=== PATIENT | male | born 1940 | race Caucasian/White ===

== ENCOUNTER 2018-04-25 10:24 | Inpatient (IN) | payer MEDICARE ==
--- NOTE | 2018-04-12 21:02 | HP ---
HISTORY AND PHYSICAL: DATE OF SURGERY: 04/25/18 DATE OF OFFICE VISIT: 04/12/18 SURGEON: Sirena Sinha MD * (DICTATED BY CICI QUIJANO) PROCEDURE: Right total knee arthroplasty. CHIEF COMPLAINT: Right knee pain. HISTORY OF PRESENT ILLNESS: Mr. Duque is a 77-year-old gentleman with complaints of right knee pain. He has failed conservative management and elected to proceed with a right total knee arthroplasty, which is scheduled for 04/25/[address] Sinha. PAST MEDICAL HISTORY: Chronic anemia. PAST SURGICAL HISTORY: Bilateral knee arthroscopies, left carpal tunnel release , and hernia repair. CURRENT MEDICATIONS: 1. Aleve. 2. Tylenol. 3. Iron. 4. Latanoprost eye drops. 5. Vitamin B12. ALLERGIES: None. FAMILY HISTORY: Breast cancer. SOCIAL HISTORY: He is a 77-year-old, lives alone. He does not smoke, use drugs or alcohol. REVIEW OF SYSTEMS: A complete 14-point of review of systems is reviewed with the patient. He has a history of chronic anemia. He denies history of DVT, PE , hepatitis, HIV or anesthesia problems. PHYSICAL EXAMINATION GENERAL: He is a well developed, well nourished in no acute distress. VITAL SIGNS: He stands 69 inches tall, weighs 177 pounds. His blood pressure is 160/84 and his heart rate is 76. HEENT: Normocephalic, atraumatic. NECK: Supple. No palpable lymph nodes. PULMONARY: Lungs are clear to auscultation bilaterally. CARDIO: Regular rate and rhythm. Strong S1, S2. ABDOMEN: Soft, nontender, and nondistended. NEUROLOGIC: He is alert and oriented x3. Cranial nerves II through XII are intact. MUSCULOSKELETAL: Right lower extremity, the skin is intact. There are no open wounds or abrasions. He has some tenderness along the medial and lateral joint line. He has a varus deformity with range of motion 20 to 120 degrees of flexion with severe patellofemoral crepitus. 2+ dorsalis pedis pulses. Intact sensation in his lower extremities. Muscle group strengths are intact at 5/5. ASSESSMENT AND PLAN: Mr. Duque is a 77-year-old gentleman with complaints of right knee pain secondary to end-stage osteoarthritis. He has failed conservative management and elected to proceed with a right total knee arthroplasty. The surgery is scheduled for 04/25/[address] Sinha has discussed the risks and benefits of the surgery at today's visit and all of his questions were answered. He will follow up with Dr. Sinha 2 weeks after the surgery. CICI QUIJANO [id number]/[facility] #: [id number] YASIR
[~2018-04-25 10:24] MED LIST: Acetaminophen IV 1GM/100ML * 1,000 MG/100 ML VIAL IVPB ONE; Buffered Lidocaine 0.9% SYRIN* 5 ML/SYR SYRINGE INTRADERM ONE; Dexamethasone IV* 4 MG/ML 1 ML (4 MG) IV SLOW PU ONE; Famotidine IV* 10 MG/ML 2 ML (20 mg) IV ONE; Gabapentin CAP(*) 300 MG PO ONE; Midazolam* 1 MG/ML 5 ML VIAL (5 MG) ONE; Ondansetron ODT TAB* 4 MG PO ONE; celeCOXIB CAP* 200 MG PO ONE; fentaNYL* 50 MCG/ML 2 ML VIAL (100 MCG VIAL) ONE
[2018-04-25] MEDS ORDERED: Propofol* 10 MG/ML 20 ML BTL IV PUSH ONE (10:25)
[2018-04-25] MEDS ORDERED: Bupivacaine 0.5% PF 10 ML VIAL INJ ONE (10:25)
[2018-04-25] MEDS ORDERED: Dexamethasone IV* 4 MG/ML 1 ML (4 MG) ONE (10:33)
[2018-04-25] MEDS ORDERED: Famotidine IV* 10 MG/ML 2 ML (20 mg) ONE (10:33)
[2018-04-25] MEDS ORDERED: Gabapentin CAP(*) 300 MG ONE (10:34)
[2018-04-25] MEDS ORDERED: celeCOXIB CAP* 100 MG ONE (10:34)
[2018-04-25] MEDS ORDERED: Ondansetron ODT TAB* 4 MG ONE (10:34)
[2018-04-25] MEDS ORDERED: Buffered Lidocaine 0.9% SYRIN* 5 ML/SYR SYRINGE ONE (10:35)
[2018-04-25] MEDS ORDERED: ceFAZolin 2 GM PREMIX (*) 2 GM/50 ML BAG IVPB ONE (10:35)
[2018-04-25] MEDS ORDERED: Acetaminophen IV 1GM/100ML * 100 ML ONE (11:10)
[2018-04-25] MEDS ORDERED: ROPIVACAINE 5 MG/ML 30 ML BTL (0.5%) ONE (11:16)
[2018-04-25] MEDS ORDERED: Bupivacaine 0.5% SDV PF* 30ML VIAL ONE (12:56)
[2018-04-25] MEDS ORDERED: Tranexamic Acid 1,000 MG/10 ML 1,000 MG in NS 0.9% 100 ML* 100 ML IV ONE (13:00)
[2018-04-25] MEDS ORDERED: fentaNYL* 50 MCG/ML 2 ML VIAL (100 MCG VIAL) IV PRN (13:31)
[2018-04-25] MEDS ORDERED: Ondansetron INJ* 2 MG/ML VIAL IV PRN ×2 (13:31→15:52)
[2018-04-25] MEDS ORDERED: Naloxone* 0.4 MG/ML 1 ML VIAL IV PRN (13:31)
[2018-04-25] MEDS ORDERED: HYDROmorphone INJ* 1 MG/ML CARPUJECT SYRINGE IV PRN (13:31)
[2018-04-25] MEDS ORDERED: diPHENhydraMINE IV* 50 MG/ML 1 ml VIAL (BENADRYL) IV PRN (15:52)
[2018-04-25] MEDS ORDERED: Magnesium Hydroxide LIQ* 30 ML UDC PO PRN (15:52)
[2018-04-25] MEDS ORDERED: Morphine VIAL* 4 MG/ML VIAL (1 ml vial) IV PRN (15:52)
[2018-04-25] MEDS ORDERED: Ondansetron TAB* 4 MG PO PRN (15:52)
[2018-04-25] MEDS ORDERED: Cyclobenzaprine TAB* 10 MG PO PRN (15:52)
[2018-04-25] MEDS ORDERED: Bisacodyl SUPP* 10 MG SUPP PR PRN (15:52)
[2018-04-25] MEDS ORDERED: Polyethylene Glycol 3350* 17 GM PACKET PO PRN (15:52)
--- NOTE | 2018-04-25 16:33 | RAD ---
INDICATION: Right knee arthroplasty COMPARISON: March 22, 2018 TECHNIQUE: Portable AP and crosstable lateral views were obtained. FINDINGS: There is right knee arthroplasty. Both femoral and tibial components appear well seated there is no overlying cooling jacket. IMPRESSION: POSTOPERATIVE RIGHT KNEE ARTHROPLASTY.
[2018-04-25] MEDS ORDERED: Warfarin TAB(*) 6 MG PO ONE (20:00)
--- NOTE | 2018-04-25 20:15 | RAD ---
CPT II Codes: G9500 Indication: Right knee replacement. Fluoroscopic services provided for referring physician. Right knee replacement appears in satisfactory position. IMPRESSION: Fluoroscopic services provided for referring physician for bipolar knee arthroplasty.
[2018-04-25] MEDS: Latanoprost 0.005%* 2.5 ml BTL BOTH EYES SCH (20:16)
[2018-04-25] MEDS: ceFAZolin 1 GM in Dextrose (*) 1 GM/50 ML BAG IVPB SCH (20:16)
[2018-04-25] MEDS: Docusate CAP* 100 MG PO SCH (20:16)
[2018-04-25] MEDS: Magnesium Hydroxide LIQ* 30 ML UDC PO SCH (20:17)
[2018-04-25] MEDS: PTO:Brinzolamid/Brimonidin OPH(NF) 1 DROP BTL BOTH EYES SCH (20:19)
[2018-04-25] MEDS: oxyCODONE/Acetamin 5/325 MG* TAB PO PRN (20:59)
[2018-04-26] MEDS: ceFAZolin 1 GM in Dextrose (*) 1 GM/50 ML BAG IVPB SCH ×2 (05:14→12:53)
[2018-04-26] MEDS: oxyCODONE/Acetamin 5/325 MG* TAB PO PRN ×3 (05:17→20:21)
[2018-04-26 06:00] LABS: Hematocrit 28 % (42-52); Hemoglobin 9.6 g/dl (14.0-18.0); Mean Platelet Volume 6.9 um3 (7.4-10.4); Platelet Count 202 10^3/ul (150-450)
[2018-04-26 06:08] LABS: INR 1.09 (0.77-1.02)
[2018-04-26 06:24] LABS: EGFR Non-African American 89.4 (>60)
[2018-04-26] MEDS: Magnesium Hydroxide LIQ* 30 ML UDC PO SCH ×2 (08:45→20:19)
[2018-04-26] MEDS: Docusate CAP* 100 MG PO SCH ×2 (08:45→20:20)
[2018-04-26] MEDS: oxyCODONE TAB* 5 MG TAB PO PRN ×2 (08:46→12:54)
[2018-04-26] MEDS: PTO:Brinzolamid/Brimonidin OPH(NF) 1 DROP BTL BOTH EYES SCH ×2 (08:50→20:23)
--- NOTE | 2018-04-26 10:24 | PN ---
Progress Note - Progress Note Date of Service: 04/26/18 SOAP: Subjective: POD #1 Right TKA, doing well. Pain well controlled. Denies CP/SOB, calf pain, f/ c, n/v. Objective: Vitals: Temp Pulse Resp BP Pulse Ox 97.8 F 74 16 131/64 100 04/26/18 07:14 04/26/18 07:14 04/26/18 08:46 04/26/18 07:14 04/26/18 07:14 Gen: A&Ox3, NAD at rest sitting in bed RLE: Dressing C/D/I, mild edema to lower leg, calf soft, NT. +f/e at ankle and MTPs, N/V intact Labs: Laboratory Results - last 24 hr 04/26/04/26/04/26/18 05:39 05:39 05:39 Hgb 9.6 L Hct 28 L Plt Count 202 MPV 6.9 L INR (Anticoag Therapy) 1.09 H Sodium 139 Potassium 3.8 Chloride 106 Carbon Dioxide 27 Anion Gap 6 BUN 22 Creatinine 0.83 Est GFR ( Amer) 108.1 Est GFR (Non-Af Amer) 89.4 BUN/Creatinine Ratio 26.5 H Glucose 143 H Calcium 8.4 L Assessment: POD #1 Right TKA, doing well Plan: Cont PT/OT INR 1.09, Coumadin 6mg tonight, continue Lovenox bridge Cont current pain medication
[2018-04-26] MEDS: Enoxaparin(*) 30 MG/0.3 ML SYR SUBCUT SCH (11:25)
[2018-04-26] MEDS ORDERED: Warfarin TAB(*) 6 MG PO ONE (17:00)
[2018-04-26] MEDS: Latanoprost 0.005%* 2.5 ml BTL BOTH EYES SCH (20:22)
[2018-04-27] MEDS: oxyCODONE/Acetamin 5/325 MG* TAB PO PRN (05:44)
[2018-04-27 05:54] LABS: Hematocrit 28 % (42-52); Hemoglobin 9.6 g/dl (14.0-18.0); Mean Platelet Volume 7.1 um3 (7.4-10.4); Platelet Count 200 10^3/ul (150-450)
[2018-04-27 06:00] LABS: INR 1.45 (0.77-1.02)
--- NOTE | 2018-04-27 06:04 | OP ---
OPERATIVE REPORT: DATE OF OPERATION: 04/25/18 DATE OF : 36 SURGEON: Sirena Sinha MD DOCTOR OF AUDIOLOGY: CICI Choi Ms. did help throughout the procedure with preparation of the leg, wound retraction, manipulation of the knee and wound closure. ANESTHESIOLOGIST: Dr. Kuhn. ANESTHESIA: Spinal. PRE-OP DIAGNOSIS: Severe end-stage degenerative osteoarthritis of the right knee joint with extensive soft tissue contracture and bone deformity. POST-OP DIAGNOSIS: Severe end-stage degenerative osteoarthritis of the right knee joint with extensive soft tissue contracture and bone deformity. OPERATIVE PROCEDURE: Right total knee arthroplasty with modifier for highly complex case adding operative time. TOURNIQUET TIME: 90 minutes. COMPLICATIONS: None. ESTIMATED BLOOD LOSS: 300 cc. SPECIMENS: Bone and cartilage from the right knee joint sent to pathology. HARDWARE USED: This is [employer] cemented total knee arthroplasty hardware. Two packages of Simplex bone cement. For the femur, a right size 7 posterior stabilized Legion femoral component. For the tibia, a size 7 Yanet II right tibial baseplate with a 16/100 Yanet II long non-slotted stem. For the insert, a 9-mm constrained articular insert size 7/8 and for the patella, a 35-mm 3-peg all poly patella. BRIEF HISTORY/INDICATION: Mr. Duque is a 77-year-old gentleman with years of increasingly severe right knee pain and contracture. His radiographs showed extensive arthritis with [id number] contact and deformity of the medial tibial plateau bone. He had essentially multiple microfractures from subchondral cysts and deformity over the years. He had widened the medial tibial plateau through this process and had extensive bone loss here. The patient and I discussed different surgical options. He understood that he could require more than the primary total knee implant. Informed consent was obtained from the patient. He understood the risks of surgery included, but were not limited to bleeding, infection, damage to nearby structures, continued pain, need for further surgery, intraoperative fracture, nerve palsy, hardware failure or loosening, knee stiffness, loss of motion, stroke, heart attack, blood clot and . He wished to proceed. INTRAOPERATIVE FINDINGS: Intraoperatively, the patient was noted to have flexion contracture of 25 degrees and severe varus deformity of 50 degrees. He had flexion to only 100 degrees at the start of the the case. Intraoperatively , we did get him to full extension and 125 degrees of flexion. He had severe deformity of the medial tibial plateau with evidence of fracture over the years along the posteromedial and medial edge of the tibial plateau. He had extensive subchondral cyst formation. His soft tissue contractures were extensive and worse medially. The case was significantly more complex than a normal primary total knee arthroplasty. Soft tissue balancing and additional work with the tibia did add at least 1 hour to this operative time. DESCRIPTION OF PROCEDURE: Mr. Duque was identified in the preanesthesia unit. His right lower extremity was marked as the correct operative side. Informed consent was signed and placed in the chart. The patient was taken to the operating room and placed under spinal anesthesia. A Macias catheter was placed. Tourniquet was placed on the right thigh. Right lower extremity was prepped and draped in the usual sterile fashion. Preop time-out was made to correctly identify the patient's side and site. Appropriate perioperative antibiotics were given within 1 hour of incision. A midline incision was made with a 10 blade and carried down to the extensor mechanism. A new 10 blade was used to make a standard medial parapatellar arthrotomy. The patella was subluxed laterally. Electrocautery was used to subperiosteally elevate soft tissue off the superomedial tibia. There was extensive osteophyte formation and deformity here. Rongeur was used to remove some osteophytes medially. A significant amount of soft tissue elevation was performed along the medial tibial plateau. The knee was flexed up. There was no anterior horn of the lateral meniscus or ACL. A drill was used to enter the distal femur. Intramedullary distal femoral cutting guide was pinned on the distal femur. An additional 2 mm of distal bone was resected due to the patient 's severe flexion contracture. External rotation guide was pinned on the distal femur and the distal femur was sized to a size 7. Size 7 multi-cutting jig was pinned on the distal femur. Oscillating saw was used to make the appropriate 4 chamfer cuts. Next, the PCL was completely released. Tibia was subluxed anteriorly. There were multiple pieces of bone whether these were osteophytes or prior fracture fragments. These were removed from the posteromedial joint line. Soft tissue medially was extremely tight and contracted. This was carefully elevated off the medial tibial plateau with electrocautery and any osteophytes were carefully removed. Intramedullary tibial cutting guide was placed after drilling proximally in the tibia. Proximal tibial cut was made perpendicular to the mechanical axis of the tibia. The bone was carefully removed. Proximal tibial bone was deformed medially. There was a stable baseplate of subchondral bone. Probing through the posteromedial tibial plateau, there was some subchondral cyst encountered. This material was cleared. A significant amount of medial deformed bone was removed. Using reamers, the canal was reamed up to a size 16. A size 7 tibial baseplate with a 16/100 trial stem was chosen and the proximal tibia was prepared using a keel punch. The stem and plate did fit with satisfactory stability although this was intensive only lateral costa to obtain a stable base for the plate and stem. There was some deformed bone medially, which was left in place purposefully in order to avoid any intraoperative fractures of the medial tibial plateau bone. A size 7 right femoral trial was impacted on to the distal femur and had good stability. The box for the posterior stabilized implant was prepared using a reamer and box cut osteotome. 9-mm insert trial was placed and the knee was taken through range of motion. There was significant tightness medially. Extensive soft tissue release was performed around the medial tibial plateau with removal of any additional osteophytes. A conservative pie-crusting technique was performed on the medial soft tissue using a 15 blade. This did improve the medial and lateral ligamentous balancing and on top of that the knee was brought out into full extension. There was flexion to 125 degrees with satisfactory patellofemoral tracking. The patella was everted. 9 mm of patellar bone and cartilage were carefully removed using an oscillating saw. Patella was sized to a size 35. 3-peg holes were drilled through the size 35 guide. The 35 trial patella was placed and the knee was taken through a range of motion. The knee had satisfactory patellofemoral tracking. There was good flexion and extension gap balancing. All trials were removed. The bone was copiously irrigated with sterile saline and dried. Final implants were cemented into place starting with the tibia, followed by the femur, and lastly the patella. The 9-mm insert trial was placed and the knee was brought out into full extension. Tourniquet was turned down at 90 minutes. The soft tissue contracture and bony deformity did add at least 1 hour to this operative case. Once the cement had fully cured, the insert trial was removed. Any excess cement was removed from around the capsule and hardware. Final insert chosen was a 9-mm constrained articular insert Yanet II. This was locked into position on the tibial tray. Stability of the insert was checked and rechecked and noted to be stable. The knee had full extension to 125 degrees of flexion. There was satisfactory patellofemoral tracking. The knee was copiously irrigated with sterile saline. Electrocautery obtained meticulous hemostasis. The extensor mechanism was closed using interrupted #1 Vicryls. The rest of the incision was closed in a layered fashion using 0 and 2-0 Vicryls. Skin was closed using running 3-0 nylon suture. Sterile Xeroform, 4x4s and Webril were used to cover the incision. Krishan wrap and cold pack were placed over this. The patient's anesthesia was reversed without difficulty. He was taken to the PACU in stable condition. Intended weightbearing will be weightbearing as tolerated. Intended DVT prophylaxis will be Coumadin with a Lovenox bridge. [id number]/[facility] #: [id number] YASIR
[2018-04-27] MEDS: Ferrous Sulfate TAB* 325 MG PO SCH (09:32)
[2018-04-27] MEDS: Magnesium Hydroxide LIQ* 30 ML UDC PO SCH ×2 (09:32→20:17)
[2018-04-27] MEDS: Docusate CAP* 100 MG PO SCH ×2 (09:32→20:39)
[2018-04-27] MEDS: PTO:Brinzolamid/Brimonidin OPH(NF) 1 DROP BTL BOTH EYES SCH ×2 (09:42→20:36)
[2018-04-27] MEDS: Acetaminophen TAB* 325 MG PO PRN ×2 (11:02→20:39)
--- NOTE | 2018-04-27 11:16 | PN ---
Progress Note - Progress Note Date of Service: 04/27/18 SOAP: Subjective: Pt lying comfortably in bed. No complaint of pain unless he moves his knee. Reports some urinary retention overnight. Denies F/C/N/T Vital Signs: Temp Pulse Resp BP Pulse Ox 97.8 F 88 17 155/77 96 04/27/18 07:52 04/27/18 07:52 04/27/18 07:52 04/27/18 07:52 04/27/18 07:52 Objective: Dressing C/D/I. Calves soft, nontender. Sensation intact to light touch distally. 2+ DP pulses Laboratory Last Values Hgb 9.6 g/dl (14.0-18.0) L 04/27/18 05:41 Hct 28 % (42-52) L 04/27/18 05:41 Plt Count 200 10^3/ul (150-450) 04/27/18 05:41 MPV 7.1 um3 (7.4-10.4) L 04/27/18 05:41 INR (Anticoag Therapy) 1.45 (0.77-1.02) H 04/27/18 05:41 Sodium 139 mmol/L (135-145) 04/26/18 05:39 Potassium 3.8 mmol/L (3.5-5.0) 04/26/18 05:39 Chloride 106 mmol/L (101-111) 04/26/18 05:39 Carbon Dioxide 27 mmol/L (22-32) 04/26/18 05:39 Anion Gap 6 mmol/L (2-11) 04/26/18 05:39 BUN 22 mg/dL (6-24) 04/26/18 05:39 Creatinine 0.83 mg/dL (0.67-1.17) 04/26/18 05:39 Est GFR ( Amer) 108.1 (>60) 04/26/18 05:39 Est GFR (Non-Af Amer) 89.4 (>60) 04/26/18 05:39 BUN/Creatinine Ratio 26.5 (8-20) H 04/26/18 05:39 Glucose 143 mg/dL (70-100) H 04/26/18 05:39 Calcium 8.4 mg/dL (8.6-10.3) L 04/26/18 05:39 Assessment: 77 yo Male s/p right TKA 04/25/[address] Sinha Plan: OOB, PT/OT, WBAT Pain control DVT prophylaxis - Coumadin 6 mg tonight. Continue lovenox bridge. D/C plan - Per nursing, still unstable at PT. Possible D/C to home tomorrow.
[2018-04-27] MEDS: Enoxaparin(*) 30 MG/0.3 ML SYR SUBCUT SCH (12:15)
[2018-04-27] MEDS ORDERED: Warfarin TAB(*) 6 MG PO ONE (17:00)
[2018-04-27] MEDS: Latanoprost 0.005%* 2.5 ml BTL BOTH EYES SCH (20:43)
[2018-04-28] MEDS: Acetaminophen TAB* 325 MG PO PRN ×3 (04:04→20:58)
[2018-04-28 05:47] LABS: INR 1.91 (0.77-1.02)
[2018-04-28] MEDS: Magnesium Hydroxide LIQ* 30 ML UDC PO SCH ×2 (09:09→20:58)
[2018-04-28] MEDS: Docusate CAP* 100 MG PO SCH ×2 (09:09→20:58)
[2018-04-28] MEDS: Ferrous Sulfate TAB* 325 MG PO SCH (09:09)
[2018-04-28] MEDS: PTO:Brinzolamid/Brimonidin OPH(NF) 1 DROP BTL BOTH EYES SCH ×2 (09:09→20:59)
[2018-04-28 10:31] LABS: Hematocrit 29 % (42-52); Hemoglobin 9.8 g/dl (14.0-18.0); Mean Platelet Volume 7.2 um3 (7.4-10.4); Platelet Count 220 10^3/ul (150-450)
[2018-04-28] MEDS: Enoxaparin(*) 30 MG/0.3 ML SYR SUBCUT SCH (12:29)
[2018-04-28] MEDS: oxyCODONE/Acetamin 5/325 MG* TAB PO PRN (13:59)
--- NOTE | 2018-04-28 14:21 | PN ---
Progress Note - Progress Note Date of Service: 04/28/18 SOAP: Subjective: Pt lying comfortably in bed. No complaint of pain. Still unable to urinate on his own. Denies F/C/N/T Vital Signs: Temp Pulse Resp BP Pulse Ox 98.1 F 76 18 154/67 100 04/28/18 11:35 04/28/18 11:35 04/28/18 13:59 04/28/18 11:35 04/28/18 11:35 Objective: Dressing C/D/I. Calves soft, nontender. N/V intact distally. Laboratory Last Values Hgb 9.8 g/dl (14.0-18.0) L 04/28/18 10:27 Hct 29 % (42-52) L 04/28/18 10:27 Plt Count 220 10^3/ul (150-450) 04/28/18 10:27 MPV 7.2 um3 (7.4-10.4) L 04/28/18 10:27 INR (Anticoag Therapy) 1.91 (0.77-1.02) H 04/28/18 05:06 Sodium 139 mmol/L (135-145) 04/26/18 05:39 Potassium 3.8 mmol/L (3.5-5.0) 04/26/18 05:39 Chloride 106 mmol/L (101-111) 04/26/18 05:39 Carbon Dioxide 27 mmol/L (22-32) 04/26/18 05:39 Anion Gap 6 mmol/L (2-11) 04/26/18 05:39 BUN 22 mg/dL (6-24) 04/26/18 05:39 Creatinine 0.83 mg/dL (0.67-1.17) 04/26/18 05:39 Est GFR ( Amer) 108.1 (>60) 04/26/18 05:39 Est GFR (Non-Af Amer) 89.4 (>60) 04/26/18 05:39 BUN/Creatinine Ratio 26.5 (8-20) H 04/26/18 05:39 Glucose 143 mg/dL (70-100) H 04/26/18 05:39 Calcium 8.4 mg/dL (8.6-10.3) L 04/26/18 05:39 Assessment: 77 yo male s/p right TKA POD #3 Plan: OOB, PT/OT, WBAT Pain control DVT prophylaxis - Coumadin 2 mg today. Will D/C lovenox Urinary retention - Urology consult. Per urology recommendation: insert chen catheter, start flomax 0.4mg daily, Gentamycin 160mg IV X1 now, repeat dose in 12hrs. D/C plan - Will likely need STR
[2018-04-28] MEDS ORDERED: Gentamicin ADULT (*) 40 MG/ML VIAL IVPB ONE (14:47)
[2018-04-28] MEDS: Tamsulosin CAP* 0.4 MG PO SCH (16:34)
[2018-04-28] MEDS: Gentamicin ADULT (*) 160 MG in NS 0.9% 100 ML* 100 ML IVPB SCH (16:35)
[2018-04-28] MEDS ORDERED: Warfarin TAB(*) 2 MG PO ONE (17:00)
[2018-04-28] MEDS ORDERED: Warfarin TAB(*) 2 MG PO NR (17:00)
[2018-04-28] MEDS: Latanoprost 0.005%* 2.5 ml BTL BOTH EYES SCH (21:00)
[2018-04-29] MEDS: Gentamicin ADULT (*) 160 MG in NS 0.9% 100 ML* 100 ML IVPB SCH (04:08)
[2018-04-29] MEDS: Acetaminophen TAB* 325 MG PO PRN (05:30)
[2018-04-29 05:41] LABS: Hematocrit 26 % (42-52); Hemoglobin 9.1 g/dl (14.0-18.0); Mean Platelet Volume 7.1 um3 (7.4-10.4); Platelet Count 231 10^3/ul (150-450)
[2018-04-29 06:23] LABS: INR 1.98 (0.77-1.02)
[2018-04-29] MEDS: PTO:Brinzolamid/Brimonidin OPH(NF) 1 DROP BTL BOTH EYES SCH ×3 (08:35→20:46)
[2018-04-29] MEDS: Tamsulosin CAP* 0.4 MG PO SCH (08:40)
[2018-04-29] MEDS: Ferrous Sulfate TAB* 325 MG PO SCH (08:40)
[2018-04-29] MEDS: Docusate CAP* 100 MG PO SCH ×2 (08:40→20:47)
[2018-04-29] MEDS: Magnesium Hydroxide LIQ* 30 ML UDC PO SCH ×2 (08:43→20:41)
[2018-04-29] MEDS: oxyCODONE/Acetamin 5/325 MG* TAB PO PRN ×2 (08:56→13:37)
--- NOTE | 2018-04-29 10:36 | PN ---
Progress Note - Progress Note Date of Service: 04/29/18 SOAP: Subjective: []Patient seen OOB in chair. He is feeling very well with no complaints. Denies any chest pain, irregular heart beats, shortness of breath, dizziness, right knee pain. Objective: [] Vital Signs Temp 98.1 F 04/29/18 07:19 Pulse 83 04/29/18 07:19 Resp 18 04/29/18 08:56 BP 153/77 04/29/18 07:19 Pulse Ox 97 04/29/18 07:19 Intake & Output 04/28/18 04/29/18 04/29/18 18:59 06:59 18:59 Intake Total 580 734 Output Total 400 1750 Balance 180 -1016 Intake: IV Fluids 130 ABX - GENTAMYCIN 110 ns 20 IVPB 104 ABX - GENTAMYCIN 104 Oral 450 630 Output: Urine 0 0 Chen 400 1750 Other: Estimated Stool Amount Large Laboratory Last Values Hgb 9.1 g/dl (14.0-18.0) L 04/29/18 05:27 Hct 26 % (42-52) L 04/29/18 05:27 Plt Count 231 10^3/ul (150-450) 04/29/18 05:27 MPV 7.1 um3 (7.4-10.4) L 04/29/18 05:27 INR (Anticoag Therapy) 1.98 (0.77-1.02) H 04/29/18 05:27 Sodium 139 mmol/L (135-145) 04/26/18 05:39 Potassium 3.8 mmol/L (3.5-5.0) 04/26/18 05:39 Chloride 106 mmol/L (101-111) 04/26/18 05:39 Carbon Dioxide 27 mmol/L (22-32) 04/26/18 05:39 Anion Gap 6 mmol/L (2-11) 04/26/18 05:39 BUN 22 mg/dL (6-24) 04/26/18 05:39 Creatinine 0.83 mg/dL (0.67-1.17) 04/26/18 05:39 Est GFR ( Amer) 108.1 (>60) 04/26/18 05:39 Est GFR (Non-Af Amer) 89.4 (>60) 04/26/18 05:39 BUN/Creatinine Ratio 26.5 (8-20) H 04/26/18 05:39 Glucose 143 mg/dL (70-100) H 04/26/18 05:39 Calcium 8.4 mg/dL (8.6-10.3) L 04/26/18 05:39 General: Well appearing, NAD Radial pulse regular Cardiac: S1S2 RR RLE: Dressing changed. Incision CDI without erythema or, 1+ edema from knee distal. No palpable cords and negative homans sign. DF/PF intact. DP2+ capillary refill less than two seconds distally. LLE without erythema, edema or palpable cords. Assessment: [] 77 yo male s/p right TKA POD #4 Plan: []OOB, PT/OT, WBAT Pain control DVT prophylaxis - 2 mg coumadin today Urinary retention - chen catheter remains in place. D/C plan - discussed with CM, still working to find placement Audible irregular heart rhythm detected on nursing assessment- appreciate medicine consult. Will get BMP at next lab draw to eval potassium and magnesium , otherwise no further tx/ workup at this time. Goal to maintain potassium greater than 4, magnesium greater than 2. 2 of 2
--- NOTE | 2018-04-29 12:54 | CONS ---
CONSULTATION REPORT: DATE OF CONSULT: 04/29/18 SERVICE REQUESTING CONSULTATION: Orthopedic Surgery. REASON FOR CONSULTATION: Irregular heart rhythm. HISTORY OF PRESENT ILLNESS AND HOSPITAL COURSE: This is a 77-year-old man with past medical history including chronic anemia, now postop day 4, status post total right knee arthroplasty with Dr. Sinha, difficult procedure without complications, in the hospital pending placement, was heard today by nurses of an irregular heart rhythm on auscultation. The hospitalist services were consulted to investigate. EKG performed today after bedside auscultation revealed normal sinus rhythm with 1 premature atrial complex but no other rhythm abnormalities. No ischemic changes. The patient denies any palpitations , chest pain or chest discomfort, shortness of breath, nausea, vomiting, lightheadedness. His pain is well controlled status post this procedure. He is an active gentleman, most limited by his previous pain. 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 PAST MEDICAL HISTORY: Includes chronic anemia. HOME MEDICATIONS: Include: 1. Aleve. 2. Tylenol. 3. Iron. 4. Latanoprost eye drops. 5. Vitamin B12. Additional medications in the hospital include: 1. Dulcolax suppository. 2. Flexeril 3 times a day as needed. 3. Benadryl IV every 6 hours as needed. 4. Docusate/lactulose as needed. 5. Lactated Ringer's 100 cc/hour. 6. Milk of magnesia as needed. 7. Morphine IV. 8. Zofran as needed. 9. Oxycodone and Percocet as needed. 10. Tamsulosin 0.4 mg. 11. Coumadin 2 mg. FAMILY HISTORY: Breast cancer. SOCIAL HISTORY: No tobacco, drugs, or alcohol. REVIEW OF SYSTEMS: As per HPI. PHYSICAL EXAM: Vitals: Blood pressure 153/77, heart rate is 83, respiratory rate is 16, 97% on room air, T-max 98.1. Sitting up in bed, interactive, pleasant, no apparent distress, younger than stated age. His oropharynx is clear. He has no moist mucous membranes. He has regular rate and rhythm without murmurs, rubs, or gallops. He has non- elevated JVD. His lungs are clear to auscultation. His abdomen is soft, nontender, nondistended. Extremities are warm. He has 1 to 2+ in the right lower extremity, 2+ peripheral pulses. He is alert and oriented x3. ASSESSMENT AND PLAN: This is a 77-year-old man with past medical history of chronic anemia, who presented to the hospital on postop day 4 of right total knee arthroplasty, found to have irregular heart rate on auscultation, identified as paroxysmal atrial complexes on EKG. 1. Irregular heart rate. Paroxysmal atrial complex is asymptomatic. No indication for additional therapy. If patient is symptomatic, shortness of breath, chest pain, experiences or senses palpitation, can proceed to therapy with a beta- hector, however, no indication at this time. BMP with next blood check. Evaluate for potassium and magnesium, maintain potassium greater than 4 , magnesium greater than 2. 2. Chronic anemia. Continue to trend as you will. 3. Right total knee arthroplasty. Care per Orthopedics. 4. DVT prophylaxis: Coumadin as you are doing. Thank you for this consultation. Please call with additional questions or concerns. Page [phone]. [id number]/[facility] #: [id number] YASIR
[2018-04-29] MEDS ORDERED: Warfarin TAB(*) 2 MG PO NR (17:00)
[2018-04-29] MEDS: Latanoprost 0.005%* 2.5 ml BTL BOTH EYES SCH (20:47)
[2018-04-30 07:20] LABS: Hematocrit 26 % (42-52); Platelet Count 278 10^3/ul (150-450)
[2018-04-30 07:25] LABS: INR 1.84 (0.77-1.02)
[2018-04-30 07:30] LABS: EGFR Non-African American 100.5 (>60)
--- NOTE | 2018-04-30 08:50 | PN ---
Progress Note - Progress Note Date of Service: 04/30/18 SOAP: Subjective: OOB to chair resting comfortably Objective: Vital Signs Temp Pulse Resp BP Pulse Ox 99.8 F 94 16 165/70 99 04/30/18 03:51 04/30/18 03:51 04/30/18 03:51 04/30/18 03:51 04/30/18 03:51 Laboratory Last Values Hgb 9.0 g/dl (14.0-18.0) L 04/30/18 07:07 Hct 26 % (42-52) L 04/30/18 07:07 Plt Count 278 10^3/ul (150-450) 04/30/18 07:07 MPV 7.0 um3 (7.4-10.4) L 04/30/18 07:07 INR (Anticoag Therapy) 1.84 (0.77-1.02) H 04/30/18 07:07 Sodium 137 mmol/L (135-145) 04/30/18 07:07 Potassium 3.9 mmol/L (3.5-5.0) 04/30/18 07:07 Chloride 101 mmol/L (101-111) 04/30/18 07:07 Carbon Dioxide 28 mmol/L (22-32) 04/30/18 07:07 Anion Gap 8 mmol/L (2-11) 04/30/18 07:07 BUN 16 mg/dL (6-24) 04/30/18 07:07 Creatinine 0.75 mg/dL (0.67-1.17) 04/30/18 07:07 Est GFR ( Amer) 121.6 (>60) 04/30/18 07:07 Est GFR (Non-Af Amer) 100.5 (>60) 04/30/18 07:07 BUN/Creatinine Ratio 21.3 (8-20) H 04/30/18 07:07 Glucose 103 mg/dL (70-100) H 04/30/18 07:07 Calcium 8.4 mg/dL (8.6-10.3) L 04/30/18 07:07 incision: c/d/i PE:NVI Assessment: s/p right TKA Plan: 1) PT/OT-WBAT 2) continue current pain regimen 3) hospitalist co-managing 4) awaiting rehab placement 5) per Tina, continue Flomax, keep chen in place and F/U with him in 1 week
[2018-04-30] MEDS: Ferrous Sulfate TAB* 325 MG PO SCH (09:31)
[2018-04-30] MEDS: Tamsulosin CAP* 0.4 MG PO SCH (09:31)
[2018-04-30] MEDS: Docusate CAP* 100 MG PO SCH (09:31)
[2018-04-30] MEDS: PTO:Brinzolamid/Brimonidin OPH(NF) 1 DROP BTL BOTH EYES SCH (09:32)
[2018-04-30] MEDS: Magnesium Hydroxide LIQ* 30 ML UDC PO SCH (09:35)
[2018-04-30 11:36] VITALS: BP 142/58
[2018-04-30] MEDS: oxyCODONE/Acetamin 5/325 MG* TAB PO PRN (12:42)
[2018-04-30] MEDS ORDERED: Warfarin TAB(*) 2 MG PO NR (17:00)
--- NOTE | 2018-05-01 06:52 | DS ---
ADDENDUM NOW INCLUDED ON THIS REPORT DISCHARGE SUMMARY: DATE OF ADMISSION: 04/25/18 DATE OF DISCHARGE: 04/30/18 SURGEON: Sirena Sinha MD * (DICTATED BY CICI QUIJANO) PRINCIPAL DIAGNOSIS: End-stage osteoarthritis of the right knee. DISCHARGE DIAGNOSIS: End-stage osteoarthritis of the right knee. HISTORY OF PRESENT ILLNESS: Mr. Duque is a 77-year-old gentleman with continued complaints of right knee pain. He has failed conservative treatment and elected to proceed with a right total knee arthroplasty which was scheduled for 04/25/18. HOSPITAL COURSE: Mr. Duque was admitted electively to the hospital on and underwent a right total knee arthroplasty. Postoperatively, he was placed on Lovenox and Coumadin for DVT prophylaxis. His INR went from 1.09 on postoperative day 1 to 1.84 on the date of discharge on 04/30/18. His H and H remained stable throughout his hospital course and at the time of discharge, his H and H was 9 and 26. He remained afebrile. On 04/29/18, it was noted that he had an irregular heart rhythm that was detected. Hospitalist was consulted and they did evaluate him. Dr. Chu saw him and diagnosed him with paroxysmal atrial complex and was asymptomatic. He did not require any additional therapy. At the time of discharge on 04/30/18, he was afebrile, his incision was clean and dry, and he was ambulating with the aid of a walker. DISCHARGE MEDICATIONS: 1. Simbrinza eye drops. 2. Ferrous sulfate 325 daily. 3. Latanoprost eye drops to both eyes. 4. Percocet 5/325 one to two tabs every 4 to 6 hours as needed for pain. 5. Coumadin 2 mg tabs. 6. Flexeril 10 mg 2 to 3 times daily for muscle spasms. PHYSICAL EXAM UPON DISCHARGE: He was afebrile. His vital signs were stable. His wound was clean and dry. He had 2+ dorsalis pedis pulse. His lower extremity muscle group strengths were intact at 5/5 and he was ambulating with the aid of a walker. DISCHARGE INSTRUCTIONS: He was discharged to a subacute rehab at the [facility]. He will continue Coumadin for DVT prophylaxis for a total of 4 weeks. His INR at the time of discharge was 1.84. We recommended 2 mg tonight followed by 2 mg Sunday night. His INR should be rechecked on and our office should be contacted for further dosing instructions. He will continue Percocet as needed for pain. He will follow up with Dr. Sinha in 2 weeks. Please call our office with any questions or concerns. ADDENDUM: DISCHARGE INSTRUCTIONS: He will continue the use of Flomax. Dr. Rahman has recommended he leave his Macias catheter in and he will follow up with Dr. Rahman in 1 week. CICI QUIJANO [id number]/[facility] #: [id number]/[facility] #: [id number] YASIR
--- NOTE | 2018-05-01 07:09 | DS ---
DISCHARGE SUMMARY: ADDENDUM: DISCHARGE INSTRUCTIONS: He will continue the use of Flomax. Dr. Rahman has recommended he leave his Macias catheter in and he will follow up with Dr. Rahman in 1 week. CICI QUIJANO [id number]/[facility] #: [id number] [facility] HOSPITALFidel
== END 2018-04-30 14:00 | DRG 470 ==
LOC: AA 10:24 → SSU 15:52
PROVIDERS: ADMIT Orthopaedic Surgery Adult Reconstructive Orthopaedic Surgery; ATTEND Orthopaedic Surgery Adult Reconstructive Orthopaedic Surgery
PROC: 0SRC0J9 Replacement of Right Knee Joint with Synthetic Substitute, Cemented, Open Approach (ICD-10-PCS; principal; 2018-04-25 13:00)
PROC: 0T9B70Z Drainage of Bladder with Drainage Device, Via Natural or Artificial Opening (ICD-10-PCS; 2018-04-28)
DX: M17.11 Unilateral primary osteoarthritis, right knee (principal); M84.461A Pathological fracture, right tibia, initial encounter for fracture; D64.9 Anemia, unspecified; F17.200 Nicotine dependence, unspecified, uncomplicated; M24.561 Contracture, right knee; M85.661 Other cyst of bone, right lower leg; M21.161 Varus deformity, not elsewhere classified, right knee; M25.761 Osteophyte, right knee; R33.9 Retention of urine, unspecified; I49.1 Atrial premature depolarization; I49.9 Cardiac arrhythmia, unspecified; Z80.3 Family history of malignant neoplasm of breast
CPT/HCPCS: 36415; 76000; 80048; 83735; 85014; 85018; 85049; 85610; 88305; 88311; 93005; A9270-GY; C1776; G8978-GP-CL; G8978-GP-CM; G8979-GP-CI; G8979-GP-CK; G8981-GP-CL; G8982-GP-CI; G8987-GO-CK; G8988-GO-CI; G8989-GO-CI; J0690; J1100; J1580; J1650; J2250; J2704; J2795; J3010

== ENCOUNTER 2018-05-17 15:41 | Emergency (ER) | payer MEDICARE ==
--- NOTE | 2018-05-17 17:10 | ED ---
Laceration/Wound HPI - HPI Summary HPI Summary: Patient is a 77-year-old male who presents emergency department for a laceration to his right lower leg that he sustained just prior to arrival. Patient is status post right total knee replacement [address] Sinha. Patient states he was walking up steps to his house using walker when he lost his balance and fell backwards. Patient denies striking his head or loss of consciousness. He states there was a short pipe sticking out of the ground and caught his right leg on it and sustained deep laceration to the back of his right mid leg. Pt. denies numbness or tingling. He is anticoagulated. Symptoms are moderate in severity. Touching affected area makes symptoms worse. Rest makes symptoms better. No other injuries were sustained. - History of Current Complaint Stated Complaint: FALL Time Seen by Provider: 05/17/18 16:16 Hx Obtained From: Patient, Family/Emergency Medicine Specialist Pain Intensity: 5 - Additional Pertinent History Primary Care Physician: JED - Allergy/Home Medications Allergies/Adverse Reactions: Allergies Allergy/AdvReac Type Severity Reaction Status Date / Time No Known Allergies Allergy Verified 04/25/18 10:42 Home Medications: Home Medications Acetaminophen TAB* [Tylenol TAB*] 325 mg PO BID PRN 05/17/18 [History Confirmed 05/17/18] Cyanocobalamin TAB* [Vitamin B12 TAB*] 1,000 mcg PO MOWEFRSA 05/17/18 [History Confirmed 05/17/18] Ferrous Gluconate [Iron] 150 mg PO DAILY 05/17/18 [History Confirmed 05/17/18] Naproxen Sodium [Naproxen 220 mg] 220 mg PO BID 05/17/18 [History Confirmed ] PMH/Surg Hx/FS Hx/Imm Hx Previously Healthy: Yes Endocrine/Hematology History: Reports: Hx Anemia - ON IRON Musculoskeletal History: Reports: Hx Arthritis - OSTEO, Hx Back Problems, Other Musculoskeletal History - TORN LIGAMENTS IN BOTH KNEES HAD SURGERY Sensory History: Reports: Hx Cataracts - HAD SURGERY, Hx Contacts or Glasses - GLASSES, Hx Glaucoma - ON EYE GTTS Denies: Hx Hearing Aid Opthamlomology History: Reports: Hx Cataracts - HAD SURGERY, Hx Contacts or Glasses - GLASSES, Hx Glaucoma - ON EYE GTTS - Surgical History Surgery Procedure, Year, and Place: LEFT KNEE SURGERY 1958 [place]. RIGHT KNEE 1968 [place]. LEFT CARPAL TUNNEL [place]. TENDON RIGHT ARM [place]. CATARACT [place]. LEFT HERNIA [place] Hx Anesthesia Reactions: No Infectious Disease History: Yes Infectious Disease History: Denies: Traveled Outside the [place] in Last 30 Days - Social History Alcohol Use: None Substance Use Type: Reports: None Smoking Status (MU): Light Every Day Tobacco Smoker Have You Smoked in the Last Year: No Review of Systems Constitutional: Negative Cardiovascular: Negative Respiratory: Negative Positive: Other - Right leg laceration Negative: Weakness, Paresthesia, Numbness All Other Systems Reviewed And Are Negative: Yes Physical Exam Triage Information Reviewed: Yes Vital Signs On Initial Exam: Initial Vitals Temp Pulse Resp BP Pulse Ox 98.2 F 82 18 141/65 98 05/17/18 16:30 05/17/18 16:30 05/17/18 16:30 05/17/18 16:30 05/17/18 16:30 Vital Signs Reviewed: Yes Appearance: Positive: Well-Appearing - Pt. lying in bed in NAD. Family member present. Skin: Positive: Warm, Dry Head/Face: Positive: Normal Head/Face Inspection Eyes: Positive: Normal Neck: Positive: Supple Musculoskeletal: Positive: Other - Roughly 6cm irregular, deep laceration noted to the posterior mid right leg. No active bleeding. Bilateral pitting edema. Cannot palpate pedal pulse given pitting edema. Intact surgical incision over anterior right knee. Neurological: Positive: Normal, CN Intact II-III Psychiatric: Positive: Affect/Mood Appropriate Procedures - Laceration/Wound Repair 1 Location: lower extremity - Right mid posterior leg Description: Irregular Anesthesia: Local, 1.0%, Lido - 5cc Betadine Prep?: No - Hibiclens Irrigated w/ Saline (ccs): 500 Laceration/Wound Explored: clean Suture Type: Nylon - 4-0 Number of Sutures: 5 Layer Closure?: No Sterile Dressing Applied?: Yes Diagnostics - Vital Signs Vital Signs Temp Pulse Resp BP Pulse Ox 05/17/18 16:30 98.2 F 82 18 141/65 98 - Laboratory Lab Statement: Any lab studies that have been ordered have been reviewed, and results considered in the medical decision making process. Laceration Repair Course/Dx - Course Course Of Treatment: Pt. presenting for a deep, large laceration to posterior right knee. Pt. was was examined by Dr. Valentin as well. Concern for potential risk of infection given recent knee replacement. I spoke with oncall orthopedics , Dr. Mujica, who would like wound irrigated and loosely closed and antibiotics. He would also like pt. placed in a knee immobilizer. Wound was extensively irrigates, cleaned and loosely closed. Knee immobilizer placed. Started on keflex. Pt. call Dr. Sinha's office on Sunday for an apt. To return to ER over weekend for increased pain, fever, redness, swelling or purulent drainage from wound. Pt. and daughter understand and agree with plan. Assessment/Plan: Dr. Valentin: I supervised the care of the physician obstetric assistant and I performed a history and physical on this patient. History: Laceration behind the right knee with a fresh postop knee replacement the end of April. Tetanus is up-to-date. Physical exam: Dirt contaminated wound posterior to the right knee with large laceration. Anteriorly, Steri-Stripped surgical wound clean and dry and intact. No active bleeding. Plan: Antibiotics here, discussed with orthopedics. Therapeutics okayed extensive cleaning of the wound here and suture closure by the PA. Follow-up in the office. - Differential Dx Differental Diagnoses: Foreign Body, Fracture, Laceration, Puncture Wound, Tendon Laceration - Clinical Impression Provider Diagnoses: Laceration Discharge - Sign-Out/Discharge Documenting (check all that apply): Patient Departure - Discharge Plan Condition: Good Disposition: HOME Prescriptions: Cephalexin CAP* [Keflex CAP*] 500 mg PO QID #40 cap Patient Education Materials: Care For Your Stitches (ED), Laceration (ED) Referrals: Karuna Iverson MD [Primary Care Provider] - Sirena Sinha MD [Medical Doctor] - Additional Instructions: Call Dr. Sinha's office on Sunday morning for an appointment Suture removal in 14 days Keep wound clean and dry Take antibiotics as directed Elevate and apply ice to leg Return to ER for increased pain, swelling, redness, drainage, or fever - Billing Disposition and Condition Condition: GOOD Disposition: Home
[2018-05-17] MEDS ORDERED: Lidocaine 1% MPF wEPI 200,000* 30 ML SDV INJ ONE (17:21)
[2018-05-17] MEDS ORDERED: Cephalexin CAP* 500 MG PO ONE (17:21)
--- NOTE | 2018-05-17 17:32 | RAD ---
INDICATION: Right knee injury. COMPARISON: Comparison is made with a prior x-ray study of the right knee from March 22, 2018. TECHNIQUE: 4 views of the right knee were obtained. FINDINGS: There is diffuse soft tissue swelling. There is a soft tissue defect present in the posterior soft tissues. The patient is status post total right knee replacement surgery. The bones and prostheses are in normal alignment. No fracture is seen. There is subchondral cystic change present in the medial tibial plateau which is unchanged. IMPRESSION: 1. SOFT TISSUE INJURY, NO FRACTURE IS SEEN. 2. STATUS POST TOTAL RIGHT KNEE REPLACEMENT SURGERY.
--- OUTSIDE RECORDS SUMMARY | 2018-05-17 17:46 | XMS REPORT | Continuity of Care Document ---
:1940 Author Organization [facility] Support Name Relationship Address Phone MARIBELL BEARD I spouse [address] [place] [address] MARIBELL BEARD I spouse [address] [place] [address] Allergies and Intolerances No Known Allergies Medications RxNorm Medication Dose Route Instructions Start End Status Date Date Acetaminophen 325 1 tab oral orally every 4 06/26/20 Active MG / Hydrocodone hours as needed. 17 Bitartrate 5 MG ( MDD=6) Oral Tablet 8746340 Brimonidine 1 drp ophthalmic into the eye(s) Active tartrate 2 MG/ML (eye) 3 times per day / brinzolamide 10 (both eyes;) MG/ML Ophthalmic Suspension 47909 ferrous sulfate 325 mg oral orally every day Active (Ordered Dose: of ferrous sulfate) 397088 latanoprost 0.05 1 drp ophthalmic into the eye(s) Active MG/ML Ophthalmic (eye) once (both Solution eyes;) vitaminn b12 1000 iu oral orally every Active other day Problems Code Code System Problem Name Start Date End Date Status 38351341 SNOMED-CT Eczema 03/19/2017 Active 601745741 SNOMED-CT Cataract U Active 74492905 SNOMED-CT Glaucoma U Active 1116624 SNOMED-CT Arthritis U Active 93645256 SNOMED-CT Varicella U Active Procedures Code Code System Procedure Date 065124683 SNOMED CT Cataract extraction and insertion of intraocular lens U LEFT WRIST SURGERY U 716032355 SNOMED CT Arthroscopy of knee U Results Laboratory Results Order: PT/INR Specimen Source: Body Site: Legend: (G,H)=High, (GG,HH,CH,#H)=Above High Threshold, (#,L)=Low, (##,CL,#L,LL) =Below Low Threshold, (C,CC,CA,#A,A)=Abnormal LOINC Test Result Flag Range Units Date 5902-2 1PT Time PPP 18.0 H 9.4-12.4 sec 05/10/2018 06:47 6301-6 1INR PPP 1.6 05/10/2018 06:47 Interpretive Dana: 1 INR INTERPERTATION 2.0-3.0 THERAPEUTIC MONITORING 2.5-3.5 HEART VALVE REPLACEMENT Performing Lab Footnotes:[facility] - [id number] - [address] [place] [address] ALIZA Ruiz BHARATI Social History Code Code System Social History Description Dates Observed Observation 071522832 SNOMED CT Current Smoking Unknown if ever Status smoked UNK AdministrativeGender Sex Assigned At Unknown Vital Signs No data in the system Goals Section No data in the system Health Concerns No data in the systemEncounter Diagnosis Date Code Code System Diagnosis Status Z79.01 ICD10 PENITENTIARY CURRNT USE ANTICOAGULANTS Active Advance Directives *RHIO - CONSENT IS YES Directive Type Effective Date Ink Technician Notes Supporting Document Name Address Phone No Directive Type 11/07/2016 11:53:59 Not Specified Not Specified Not Specified None No specified AM PT STATES NO ADVANCE DIRECTIVES Directive Type Effective Date Ink Technician Notes Supporting Document Name Address Phone No Directive Type 06/26/2017 9:15:00 Not Specified Not Specified Not Specified None No specified AM Family History No data in the system Functional Status No data in the system Immunizations Vaccine Code Code System Vaccine Name Date Status FLU VACCINE 2016 Completed PNEUMONIA VACCINE 2016 Completed Medical Equipment Implants Implanted Date Implant Site FREDY 08/05/2001 iol right eye 08/05/2001 iol left eye Mental Status No data in the system Assessment and Plan Assessments No data in the systemPlan Of Treatment No data in the systemPending Tests No data in the system Hospital Discharge Instructions No data in the system Reason for Visit No data in the system
--- OUTSIDE RECORDS SUMMARY | 2018-05-17 17:46 | XMS REPORT ---
:1940 External Reference #:[id number] Author Organization [facility] Address [address] [address] Phone [phone] Care Team Providers Name Role Phone Karuna Iverson MD Care Team Information Hot Worker Unavailable Payers Type Date Identification Numbers Payment Provider Subscriber Commercial Effective: Policy Number: [facility] Medicare Yaniv Duque 2014 [id number] Solutions Group Number: [id number] [address] [address] Group Name: [id number] [place] [address] PayID: [id number] Medigap Part B Policy Number: [id number] Tier[employer] Yaniv Duque Group Number: [id number] UDS [address] Group Name: [id number] [address] PayID: [id number] [place] [address] Problems Date Description Provider Status Onset: 11/22/2010 History of polyp of colon Karuna Iverson MD Active Family History Date Family Member(s) Problem(s) Comments Father CAD : (age 86 Years) Mother due to Old Age First Brother CAD First Sister Cancer, Breast First Sister TIA Social History Type Date Description Comments Marital Status 4 children, 3 grandchildren Occupation [employer] Cigarette Use Denies Cigarette Use ETOH Use Occasionally consumes alcohol Daily Caffeine Consumes on average 3 cups of coffee per day Allergies, Adverse Reactions, Alerts Date Description Reaction Status Severity Comments 07/17/2006 NKDA active Medications Medication Date Status Form Strength Qnty SIG Indications Ordering Provider Vitamin B-12 10/02/ Active Tablets 1000mcg take one D64.9 Urbano Iverson every MD other day by mouth Ferrous 10/02/ Active Tablets 325(36Fe) 1 by mouth D64.9 Kishor Gluconate 2016 mg twice Karuna, daily Latanoprost / Active Solution 0.005% as Arleo, 0000 directed MD Alf Tylenol 8 Hour 00/ Active Tablets ER 650mg 1 tabs Unknown Arthritis Pain 0000 twice daily for arthritis pain Aleve 00/ Active Capsules 220mg 1 by mouth Unknown 0000 q12 hours as needed for pain No Active 07/27/ Hx Unknown Medications 2013 - 2014 Cephalexin 07/20/ Hx Tablets 500mg 28tabs 1 tablet 4 Kishor, 2013 - times Davidd, 07/27/ daily for 2013 7 days No Active 07/14/ Hx Unknown Medications 2013 - 2013 Cephalexin 07/07/ Hx Tablets 500mg 28tabs 1 tablet 4 706.2 Kishor, 2013 - times Karuna, 07/14/ daily for 2013 7 days No Active 08/14/ Hx Unknown Medications 2012 - 2013 Triamcinolone 07/15/ Hx Cream 0.1% 60gm apply to 692.6 Kishor Acetonide 2013 - affected Karuna, 08/14/ area 2-3 2013 times daily No Active 11/22/ Hx Kishor Medications 2010 - Karuna, 07/15/ 2012 Ibuprofen 08/17/ Hx Tablets 600mg 60tabs 1 po 3-4 847.2 Kishor, 2007 - times day Karuna, 10/16/ with food 2007 Dicloxacillin 05/18/ Hx Capsules 500mg 28caps 1 PO Q6H X 727.42 Kishor, 2005 - 7 Days Karuna, 05/25/ 2006 Tramadol HCL / Hx Tablets 50mg one or two Suzanne, 0000 - by mouth Alton 09/05/ four times Ortho 2015 a day as needed pain Diclofenac / Hx Tablets DR Palacios, Sodium 0000 - Alton 02/03/ Ortho 2016 Immunizations CPT Code Status Date Vaccine Lot # [id number] Given 09/24/2017 Pneumococcal 23 Immunization Adult Or [id number] Immunosuppressed Patient 45996 Given 09/24/2017 Fluzone Highdose Age 65 And Over Preservative & [id number] Antibiotic Free 87738 Given 08/07/2016 Tetanus And Diptheria Toxoids For Adult [id number] Use-preservative free 29880 Given 08/07/2016 Prevnar 13 Pneumococal Conjugate Vaccine [id number] 42295 Given 08/07/2016 Fluzone Highdose Age 65 And Over Preservative & [id number] Antibiotic Free 22211 Given 09/07/2015 Fluzone Highdose Age 65 And Over Preservative & Antibiotic Free 80978 Given 09/07/2015 Fluzone Highdose Age 65 And Over Preservative & [id number] Antibiotic Free Q2038 Refused 07/15/2013 Fluzone Trivalent Immunization [id number] Refused 11/22/2010 Zoster (Zostavax) 43052 Refused 11/22/2010 Pneumococcal 23 Immunization Adult Or Immunosuppressed Patient 01569 Refused 11/22/2010 Tdap (Adacel) Ages 7 And Above Only Vital Signs Date Vital Result Comment 04/18/2018 Weight 183.00 lb Heart Rate 83 /min BP Systolic 150 mmHg BP Diastolic 86 mmHg BP Systolic Recheck 135 mmHg BP Diastolic Recheck 77 mmHg Respiratory Rate 12 /min Height 72 inches 6'0" BMI (Body Mass Index) 24.8 kg/m2 10/15/2017 Body Temperature 98.3 F Weight 181.00 lb Heart Rate 88 /min BP Systolic 178 mmHg BP Diastolic 70 mmHg BP Systolic Recheck 158 mmHg by MD BP Diastolic Recheck 72 mmHg by MD Respiratory Rate 14 /min Height 72 inches 6'0" BMI (Body Mass Index) 24.5 kg/m2 09/24/2017 Weight 188.00 lb Heart Rate 81 /min BP Systolic 158 mmHg BP Diastolic 88 mmHg BP Systolic Recheck 144 mmHg by md BP Diastolic Recheck 84 mmHg by md Respiratory Rate 12 /min Height 72 inches 6'0" BMI (Body Mass Index) 25.5 kg/m2 06/08/2017 Weight 180.00 lb Heart Rate 79 /min BP Systolic 144 mmHg BP Diastolic 76 mmHg Height 72 inches 6'0" BMI (Body Mass Index) 24.4 kg/m2 03/13/2017 Weight 179.00 lb Heart Rate 82 /min BP Systolic 158 mmHg BP Diastolic 78 mmHg BP Systolic Recheck 134 mmHg by md BP Diastolic Recheck 76 mmHg by md Respiratory Rate 14 /min Height 72 inches 6'0" BMI (Body Mass Index) 24.3 kg/m2 02/14/2017 Weight 180.00 lb Heart Rate 77 /min BP Systolic 140 mmHg BP Diastolic 84 mmHg Height 72 inches 6'0" BMI (Body Mass Index) 24.4 kg/m2 09/21/2016 Weight 190.00 lb Heart Rate 80 /min BP Systolic 142 mmHg BP Diastolic 80 mmHg Height 72 inches 6'0" BMI (Body Mass Index) 25.8 kg/m2 08/07/2016 Weight 195.00 lb Heart Rate 92 /min BP Systolic 146 mmHg BP Diastolic 80 mmHg Height 72 inches 6'0" BMI (Body Mass Index) 26.4 kg/m2 09/07/2015 Weight 198.00 lb Heart Rate 80 /min BP Systolic 146 mmHg BP Diastolic 94 mmHg BP Systolic Recheck 136 mmHg by md BP Diastolic Recheck 80 mmHg by md Respiratory Rate 12 /min Height 72 inches 6'0" BMI (Body Mass Index) 26.9 kg/m2 07/07/2014 Body Temperature 98.1 F Weight 199.00 lb Heart Rate 80 /min BP Systolic 126 mmHg BP Diastolic 84 mmHg Height 72 inches 6'0" BMI (Body Mass Index) 27.0 kg/m2 07/15/2013 Weight 195.00 lb Heart Rate 72 /min BP Systolic 144 mmHg BP Diastolic 72 mmHg Height 72 inches 6'0" BMI (Body Mass Index) 26.4 kg/m2 02/07/2013 Weight 187.00 lb Heart Rate 72 /min BP Systolic 146 mmHg BP Diastolic 96 mmHg BP Systolic Recheck 132 mmHg by MD BP Diastolic Recheck 78 mmHg by MD Respiratory Rate 12 /min Height 72 inches 6'0" BMI (Body Mass Index) 25.4 kg/m2 06/11/2012 Weight 198.00 lb Heart Rate 80 /min BP Systolic 138 mmHg BP Diastolic 84 mmHg Height 72 inches 6'0" BMI (Body Mass Index) 26.9 kg/m2 Right Visual Acuity Distance 20/20 20/20 Both Eyes Left Visual Acuity Distance 20/20 Uncorrected 11/22/2010 Weight 209.00 lb Heart Rate 72 /min BP Systolic 136 mmHg BP Diastolic 84 mmHg Height 72 inches 6'0" BMI (Body Mass Index) 28.3 kg/m2 04/20/2009 Weight 204.00 lb Floor Scale Heart Rate 80 /min BP Systolic 148 mmHg BP Diastolic 96 mmHg Height 72 inches 6'0" BMI (Body Mass Index) 27.7 kg/m2 08/17/2008 Body Temperature 98.5 F Weight 208.00 lb Heart Rate 84 /min BP Systolic 158 mmHg BP Diastolic 84 mmHg Height 72 inches 6'0" BMI (Body Mass Index) 28.2 kg/m2 07/18/2007 Weight 207.19 lb Heart Rate 76 /min BP Systolic 130 mmHg BP Diastolic 80 mmHg Respiratory Rate 16 /min Height 72 inches 6'0" BMI (Body Mass Index) 28.1 kg/m2 Right Visual Acuity Distance 20/20 Without Glasses Left Visual Acuity Distance 20/20 Without Glasses 08/24/2006 Weight 209.00 lb Heart Rate 76 /min BP Systolic 132 mmHg BP Diastolic 80 mmHg Respiratory Rate 16 /min Height 72 inches 6'0" BMI (Body Mass Index) 28.3 kg/m2 07/17/2006 Weight 203.12 lb Heart Rate 76 /min BP Systolic 130 mmHg BP Diastolic 78 mmHg Respiratory Rate 16 /min Height 72 inches 6'0" BMI (Body Mass Index) 27.5 kg/m2 Right Visual Acuity Distance 20/15 No Lenses Left Visual Acuity Distance 20/30 05/31/2006 Body Temperature 97.7 F Weight 207.00 lb Heart Rate 86 /min BP Systolic 130 mmHg BP Diastolic 82 mmHg Respiratory Rate 16 /min Height 72 inches 6'0" BMI (Body Mass Index) 28.1 kg/m2 05/18/2006 Body Temperature 93.9 F Weight 209.00 lb Heart Rate 86 /min BP Systolic 140 mmHg BP Diastolic 100 mmHg Respiratory Rate 16 /min Height 72 inches 6'0" BMI (Body Mass Index) 28.3 kg/m2 Results Test Date Test Result H/L Range Note CBC With Auto Diff 06/08/2017 WBC 4.5 K/uL 4.1-11.0 RBC 3.62 M/uL Low 4.60-6.10 Hemoglobin 10.7 gm/dL Low 13.5-18.0 Hematocrit 32.0 % Low 41.0-53.0 MCV 88.5 fL 80.0-97.0 MCH 29.7 pg 27.0-32.0 MCHC 33.6 g/dL 32.0-36.0 RDW 13.8 % 11.5-14.5 PLT Count 239 K/ul 140-400 Neutrophil 56.8 % 35.0-75.0 Lymphocyte 25.8 % 16.0-52.0 Monocyte 13.4 % High 2.0-10.0 Eosinophil 3.2 % 0.0-5.0 Basophil 0.8 % 0.0-4.0 Abs Neutrophils 2.6 K/uL 2.1-8.0 Abs Lymphocytes 1.2 K/uL 0.8-5.5 Abs Monocytes 0.6 K/uL 0.1-1.0 Abs Eosinophils 0.1 K/uL 0.0-0.5 Abs Basophils 0.0 K/uL 0.0-0.3 Iron Panel 06/08/2017 Iron, Total 48 g/dL Low 65-175 Transferrin 198.0 mg/dL Low 203.0-362.0 Tibc (calc) 277 g/dL 261-478 % Iron Saturation 17.3 % 13.0-45.0 Laboratory test finding 06/08/2017 Ferritin 287.3 ng/ml 24.0-336.0 Vitamin B12 530 pg/mL 180-914 CBC With Auto Diff 02/14/2017 WBC 5.7 K/uL 4.1-11.0 RBC 3.92 M/uL Low 4.60-6.10 Hemoglobin 11.3 gm/dL Low 13.5-18.0 Hematocrit 34.9 % Low 41.0-53.0 MCV 89.0 fL 80.0-97.0 MCH 28.9 pg 27.0-32.0 MCHC 32.5 g/dL 32.0-36.0 RDW 13.7 % 11.5-14.5 PLT Count 317 K/ul 140-400 Neutrophil 72.4 % 35.0-75.0 Lymphocyte 14.8 % Low 16.0-52.0 Monocyte 9.8 % 2.0-10.0 Eosinophil 1.3 % 0.0-5.0 Basophil 1.7 % 0.0-4.0 Abs Neutrophils 4.1 K/uL 2.1-8.0 Abs Lymphocytes 0.8 K/uL 0.8-5.5 Abs Monocytes 0.6 K/uL 0.1-1.0 Abs Eosinophils 0.1 K/uL 0.0-0.5 Abs Basophils 0.1 K/uL 0.0-0.3 Laboratory test finding 02/14/2017 Ferritin 244.9 ng/ml 24.0-336.0 Iron Panel 02/14/2017 Iron, Total 53 g/dL Low 65-175 Transferrin 215.0 mg/dL 203.0-362.0 Tibc (calc) 301 g/dL 261-478 % Iron Saturation 17.6 % 13.0-45.0 Laboratory test finding 02/14/2017 Vitamin B12 648 pg/mL 180-914 Retic Count -RL 02/14/2017 Retic % 0.8 % (0.6-2.1) Retic Index 0.6 % (0.5-1.9) Absolute Retic 0.03 10*6/uL (0.027-0.101) 1 Laboratory test finding 02/14/2017 RBC 3.93 10*6/uL Low (4.60-6.10) 2 Laboratory test finding 02/14/2017 Hematocrit 34.9 % Low (41.0-53.0) 3 Iron Panel 12/13/2016 Iron, Total 62 g/dL Low 65-175 Transferrin 207.1 mg/dL 203.0-362.0 Tibc (calc) 290 g/dL 261-478 % Iron Saturation 21.4 % 13.0-45.0 Laboratory test finding 12/13/2016 Ferritin 215.5 ng/ml 24.0-336.0 CBC With Auto Diff 12/13/2016 WBC 6.3 K/uL 4.1-11.0 RBC 4.08 M/uL Low 4.60-6.10 Hemoglobin 12.1 gm/dL Low 13.5-18.0 Hematocrit 36.2 % Low 41.0-53.0 MCV 88.8 fL 80.0-97.0 MCH 29.7 pg 27.0-32.0 MCHC 33.4 g/dL 32.0-36.0 RDW 13.8 % 11.5-14.5 PLT Count 288 K/ul 140-400 Neutrophil 66.4 % 35.0-75.0 Lymphocyte 20.0 % 16.0-52.0 Monocyte 10.6 % High 2.0-10.0 Eosinophil 2.4 % 0.0-5.0 Basophil 0.6 % 0.0-4.0 Abs Neutrophils 4.2 K/uL 2.1-8.0 Abs Lymphocytes 1.3 K/uL 0.8-5.5 Abs Monocytes 0.7 K/uL 0.1-1.0 Abs Eosinophils 0.2 K/uL 0.0-0.5 Abs Basophils 0.0 K/uL 0.0-0.3 Comprehensive Metabolic (CMP) 12/13/2016 Sodium 137 mmol/L 134-142 Potassium 4.4 mmol/L 3.5-5.2 Chloride 103 mmol/L 97-109 Carbon Dioxide 28 mmol/L 24-34 Glucose 90 mg/dL 70-105 BUN 20 mg/dL 6-26 Creatinine 0.9 mg/dL 0.5-1.4 Calcium 9.0 mg/dL 8.5-10.2 Total Protein 6.6 g/dL 6.0-8.0 Albumin 4.1 g/dL 3.6-4.9 Globulin 2.5 g/dL 2.0-3.5 A/G Ratio 1.6 Ratio 1.0-2.2 Total Bilirubin 0.5 mg/dL 0.1-1.3 Alkaline Phosphatase 76 U/L 24-140 Alt 17 U/L 3-42 Ast 19 U/L 8-42 Anion Gap 10 mmol/L 6-14 Lucie Egfr >60 >60 4 Non Lucie Egfr >60 >60 5 Lipid 12/13/2016 Cholesterol 180 mg/dL 50-199 Triglycerides 71 mg/dL 30-200 HDL 68 mg/dL 29-71 6 Chol/ HDL Ratio 2.6 ratio Low 4.0-6.7 VLDL 14 mg/dL 2-29 LDL (Calc) 98 mg/dL 20-99 7 Laboratory test finding 10/09/2016 Stool Occult Blood -RL neg x3 Laboratory test finding 09/27/2016 Hematocrit 33.2 % Low (41.0-53.0) 8 RBC 3.76 10*6/uL Low (4.60-6.10) 9 Retic Count -RL 09/27/2016 Retic % 1.1 % (0.6-2.1) Retic Index 0.8 % (0.5-1.9) Absolute Retic 0.04 10*6/uL (0.027-0.101) 10 Laboratory test finding 09/27/2016 Vitamin B12 161 pg/mL Low 180-914 Iron Panel 09/27/2016 Iron, Total 23 g/dL Low 65-175 Transferrin 194.8 mg/dL Low 203.0-362.0 Tibc (calc) 273 g/dL 261-478 % Iron Saturation 8.4 % Low 13.0-45.0 CBC With Auto Diff 09/27/2016 WBC 6.7 K/uL 4.1-11.0 RBC 3.67 M/uL Low 4.60-6.10 Hemoglobin 11.0 gm/dL Low 13.5-18.0 Hematocrit 32.7 % Low 41.0-53.0 MCV 89.1 fL 80.0-97.0 MCH 29.8 pg 27.0-32.0 MCHC 33.5 g/dL 32.0-36.0 RDW 13.3 % 11.5-14.5 PLT Count 251 K/ul 140-400 Neutrophil 68.5 % 35.0-75.0 Lymphocyte 18.4 % 16.0-52.0 Monocyte 10.7 % High 2.0-10.0 Eosinophil 1.6 % 0.0-5.0 Basophil 0.8 % 0.0-4.0 Abs Neutrophils 4.6 K/uL 2.1-8.0 Abs Lymphocytes 1.2 K/uL 0.8-5.5 Abs Monocytes 0.7 K/uL 0.1-1.0 Abs Eosinophils 0.1 K/uL 0.0-0.5 Abs Basophils 0.1 K/uL 0.0-0.3 Laboratory test finding 09/27/2016 Ferritin 260.9 ng/ml 24.0-336.0 CBC With Auto Diff 09/21/2016 WBC 6.3 K/uL 4.1-11.0 RBC 3.83 M/uL Low 4.60-6.10 Hemoglobin 11.5 gm/dL Low 13.5-18.0 Hematocrit 34.0 % Low 41.0-53.0 MCV 88.7 fL 80.0-97.0 MCH 29.9 pg 27.0-32.0 MCHC 33.8 g/dL 32.0-36.0 RDW 13.5 % 11.5-14.5 PLT Count 282 K/ul 140-400 Neutrophil 65.6 % 35.0-75.0 Lymphocyte 20.1 % 16.0-52.0 Monocyte 12.0 % High 2.0-10.0 Eosinophil 1.7 % 0.0-5.0 Basophil 0.6 % 0.0-4.0 Abs Neutrophils 4.1 K/uL 2.1-8.0 Abs Lymphocytes 1.3 K/uL 0.8-5.5 Abs Monocytes 0.8 K/uL 0.1-1.0 Abs Eosinophils 0.1 K/uL 0.0-0.5 Abs Basophils 0.0 K/uL 0.0-0.3 Lipid 02/13/2013 Cholesterol 194 mg/dL 50-199 Triglycerides 69 mg/dL 30-200 HDL 68 mg/dL 29-71 11 Chol/ HDL Ratio 2.9 ratio Low 4.0-6.7 VLDL 14 mg/dL 2-29 LDL (Calc) 112 mg/dL 20-129 12 1 Urinalysis DIP (In-House) 06/11/2012 Z#Color YELLOW Z#Appearance CLEAR Urine,Leukocytes NEG Nitrite NEG Urobilinogen NEG Urine,Protein NEG Z#PH Urine 5 Z#Blood, Urine NEG Z#Specific Leon 1.010 Z#Ketones Urine NEG Z#Bili,Urine NEG Z#Glu Urine NEG Laboratory test finding 11/22/2010 PSA 1.88 ng/ml 0.00-4.00 13 Lipid Panel 04/20/2009 Cholesterol 208 mg/dL High 50-199 14 Triglycerides 70 mg/dL 10-150 14 HDL 58 mg/dL -71 14, 15 Chol/HDL Ratio 3.6 Ratio Low 4.0-6.7 14, 16 VLDL 14 mg/dL 2-29 14 LDL (Calc) 136 mg/dL High 20-129 14, 17 CMP 04/20/2009 Sodium 140 mmol/L 135-144 14 Potassium 4.5 mmol/L 3.6-5.2 14 Chloride 108 mmol/L 97-110 14 Carbon Dioxide 28 mmol/L 23-33 14 Glucose 88 mg/dL 70-105 14 BUN 10 mg/dL 6-22 14 Creatinine 1.0 mg/dL 0.5-1.3 14 BUN/CR 10 Ratio Low 12.0-20.0 14 Calcium 9.0 mg/dL 8.6-10.2 14 Total Protein 6.9 g/dL 5.8-7.8 14 Albumin 4.1 g/dL 3.5-4.8 14 Globulin 2.8 g/dL 2.0-3.5 14 A/G Ratio 1.5 Ratio 1.0-2.2 14 Total Bilirubin 0.7 mg/dL 0.3-1.2 14 Alkaline Phosphatase 85 U/L 24-140 14 Alt 19 U/L 4-45 14 Ast 23 U/L 12-40 14 Anion Gap 9 mmol/L 8-16 14 GFR Calculation > 60 mL/min 60-175 14, 18 GFR For > 60 mL/min 60-175 14, 19 Laboratory test finding 07/11/2007 PSA 1.49 ng/ml 0.00-4.00 14, 20 CMP 07/11/2007 Sodium 141 mmol/L 135-144 14 Potassium 4.6 mmol/L 3.6-5.2 14 Chloride 108 mmol/L 97-110 14 Carbon Dioxide 27 mmol/L 23-33 14 Glucose 91 mg/dL 70-105 14 BUN 13 mg/dL 6-22 14 Creatinine 1.1 mg/dL 0.5-1.3 14 BUN/CR 12 Ratio 12.0-20.0 14 Calcium 9.1 mg/dL 8.6-10.2 14 Total Protein 6.2 g/dL 5.8-7.8 14 Albumin 3.5 g/dL 3.5-4.8 14 Globulin 2.7 g/dL 2.0-3.5 14 A/G Ratio 1.3 Ratio 1.0-2.2 14 Total Bilirubin 0.8 mg/dL 0.3-1.2 14 Alkaline Phosphatase 79 U/L 24-140 14 Alt 19 U/L 4-45 14 Ast 22 U/L 12-40 14 Anion Gap 11 mmol/L 8-16 14 GFR Calculation > 60 mL/min 14, 21 GFR For > 60 mL/min 14, 22 Lipid Panel 07/11/2007 Cholesterol 211 mg/dL High 50-199 14 Triglycerides 76 mg/dL 10-150 14 HDL 58 mg/dL 29-71 14 Chol/HDL Ratio 3.6 Ratio 14 VLDL 15 mg/dL 14 LDL (Calc) 138 mg/dL High 20-129 14 Laboratory test finding 07/10/2006 PSA 1.35 ng/ml 0.00-4.00 23, 24 Lipid Panel 07/10/2006 Cholesterol 220 mg/dL High 50-199 23 Triglycerides 94 mg/dL 10-150 23 HDL 68 mg/dL 29-71 23 Chol/HDL Ratio 3.2 Ratio 23 VLDL 19 mg/dL 23 LDL (Calc) 133 mg/dL High 20-129 23 1 Unless otherwise specified, testing performed by [facility] [facility] [place] [address] 2 Unless otherwise specified, testing performed by [facility] [address] [place] [id number] 3 Unless otherwise specified, testing performed by [facility] [address] [place] [phone] 4 Concerning GFR Guidelines for Americans: Normal function or mild renal disease, if clinically at risk: >/=60 mL/min Moderately decreased: 30-59 Severely decreased: 15-29 Renal failure: <15 5 Concerning GFR Guidelines: Normal function or mild renal disease, if clinically at risk: >/=60 mL/min Moderately decreased: 30-59 Severely decreased: 15-29 Renal failure: <15 Glomerular Filtration Rate (GFR) is estimated based on the MDRD equation, which assumes a steady state for creatinine as recommended by the National Kidney Disease Education Program in conjunction with the National Institutes of Health and the National Kidney Foundation. Clinical conditions in which it may be necessary to measure GFR by using clearance methods include extremes of age and body size, severe malnutrition or obesity, diseases of skeletal muscle, paraplegia or quadriplegia, vegetarian diet, rapidly changing kidney function, and calculation of the dose of potentially toxic drugs that are excreted by the kidneys. 6 Per NCEP ATP III Guidelines: Results lower than 40 mg/dL are suggestive of increased risk for coronary artery disease. Results > or=to 60 mg/dL are considered a negative risk factor. 7 Per NCEP ATP III Guidelines: Normal Population <130 Patients with medical conditions: CHD/DM Optimal: <100 Borderline high: 130-159 High: 160-189 Very high: >189 8 Unless otherwise specified, testing performed by [facility] [address] [place] [id number] 9 Unless otherwise specified, testing performed by [facility] [address] [place] [id number] 10 Unless otherwise specified, testing performed by [facility] [place] [address] 11 Per NCEP ATP III Guidelines: Results lower than 40 mg/dL are suggestive of increased risk for coronary artery disease. Results > or=to 60 mg/dL are considered a negative risk factor. 12 Per NCEP ATP III Guidelines: Optimal: <100 Near optimal: 100-129 Borderline high: 130-159 High: 160-189 Very high: >189 13 BEGINNING 12/31/06, PSA VALUES ASSAYED AT [employer] USES AN EIA METHODOLOGY MANUFACTURED BY [employer] FOR USE ON THE [employer]XI ANALYZER. VALUES OBTAINED WITH DIFFERENT ASSAY METHODS OR KITS CAN NOT BE USED INTERCHANGEABLY. SERUM PSA MEASUREMENT IS NOT AN ABSOLUTE TEST FOR MALIGNANCY, THE PSA VALUE SHOULD BE USED IN CONJUNCTION WITH INFORMATION AVAILABLE FROM CLINICAL EVALUATION AND OTHER DIAGNOSTIC PROCEDURES. 14 FASTING 15 PER NCEP ATP III GUIDELINES: RESULTS LOWER THAN 40 MG/DL ARE SUGGESTIVE OF INCREASED RISK FOR CORONARY ARTERY DISEASE. RESULTS > OR=TO 60 MG/DL ARE CONSIDERED A NEGATIVE RISK FACTOR. 16 INTERPRETATION OF CHOL-HDL RATIO CHD RISK FEMALE MALE VERY HIGH >8.3 >14.3 HIGH 5.6 - 8.3 6.7 - 14.3 AVERAGE 3.7 - 5.6 4.0 - 6.7 BELOW AVERAGE 2.5 - 3.7 2.7 - 4.0 PROTECTED <2.5 <2.7 17 PER NCEP ATP III GUIDELINES: OPTIMAL: <100 NEAR OPTIMAL: 100 - 129 BORDERLINE HIGH: 130 - 159 HIGH: 160 - 189 VERY HIGH: >189 18 Concerning GFR GUIDELINES: Normal Function or Mild Renal Disease, if clinically at risk: >/=60mL/min Moderately decreased: 30-59 Severely decreased: 15-29 Renal Failure: <15 Glomerular Filtration Rate (GFR) is estimated based on the MDRD equation, which assumes a steady state for creatinine as recommended by the National Kidney Disease Education Program in conjunction with the National Institutes of Health and the National Kidney Foundation. Clinical conditions in which it may be necessary to measure GFR by using clearance methods include extremes of age and body size, severe malnutrition or obesity, diseases of skeletal muscle, paraplegia or quadriplegia, vegetarian diet, rapidly changing kidney function, and calculation of the dose of potentially toxic drugs that are excreted by the kidneys. 19 Concerning GFR GUIDELINES: Normal Function or Mild Renal Disease, if clinically at risk: >/=60mL/min Moderately decreased: 30-59 Severely decreased: 15-29 Renal Failure: <15 20 BEGINNING 12/31/06, PSA VALUES ASSAYED AT [facility] USES AN EIA METHODOLOGY MANUFACTURED BY [employer] FOR USE ON THE DXI ANALYZER. VALUES OBTAINED WITH DIFFERENT ASSAY METHODS OR KITS CAN NOT BE USED INTERCHANGEABLY. SERUM PSA MEASUREMENT IS NOT AN ABSOLUTE TEST FOR MALIGNANCY, THE PSA VALUE SHOULD BE USED IN CONJUNCTION WITH INFORMATION AVAILABLE FROM CLINICAL EVALUATION AND OTHER DIAGNOSTIC PROCEDURES. 21 Concerning GFR GUIDELINES: Normal Function or Mild Renal Disease, if clinically at risk: >/=60mL/min Moderately decreased: 30-59 Severely decreased: 15-29 Renal Failure: <15 Glomerular Filtration Rate (GFR) is estimated based on the MDRD equation, which assumes a steady state for creatinine as recommended by the National Kidney Disease Education Program in conjunction with the National Institutes of Health and the National Kidney Foundation. Clinical conditions in which it may be necessary to measure GFR by using clearance methods include extremes of age and body size, severe malnutrition or obesity, diseases of skeletal muscle, paraplegia or quadriplegia, vegetarian diet, rapidly changing kidney function, and calculation of the dose of potentially toxic drugs that are excreted by the kidneys. 22 Concerning GFR GUIDELINES: Normal Function or Mild Renal Disease, if clinically at risk: >/=60mL/min Moderately decreased: 30-59 Severely decreased: 15-29 Renal Failure: <15 23 FASTING prior to next visit 24 PSA VALUES ASSAYED AT [facility] USES AN EIA METHODOLOGY MANUFACTURED BY [employer] FOR USE ON THE [employer] ANALYZER. VALUES OBTAINED WITH DIFFERENT ASSAY METHODS OR KITS CAN NOT BE USED INT ERCHANGEABLY. SERUM PSA MEASUREMENT IS NOT AN ABSOLUTE TEST FOR MALIGNANCY, THE PSA VALUE SHOULD BE USED IN CONJUNCTION WITH INFORMATION AVAILABLE FROM CLINICAL EVALUATION AND OTHER DIAGNOSTIC PROCEDURES. Procedures Date CPT Code Description Status Comment 03/13/2017 33167 Electrocardiogram Complete Completed 08/07/2016 33105 Electrocardiogram Complete Completed 11/05/[address] Gracia 07/23/2007 92795 Cardiovascular Stress Test Tracing Only Completed 07/23/2007 04847 Nuclear Myocardial Perfusion Study W/Ejection Completed Fraction 07/23/2007 14724 Nuclear Myocardial Perfusion Study W/Wall Completed Motion 07/23/2007 28356 Nuclear Spect. Imaging (Multi) At Rest/And/Or Completed Stress 08/24/2006 38252 Electrocardiogram Complete Completed 07/17/2006 74580 Visual Screening Test Completed 07/17/2006 61111 Audiometry, Loudness Balance Test, Alternate Completed Binaural Or Monaural Encounters Type Date Location Provider CPT E/M Dx Office Visit 10/15/2017 1:30p [place] [address] J06.9 R06.2 Office Visit 09/24/2017 9:30a Karuna Dubon MD G0439 Z00.00 M17.0 R26.89 R03.0 Z23 Office Visit 06/08/2017 1:30p [place] [address] Z01.818 K40.90 D64.9 Office Visit 03/13/2017 1:30p [place] [address] Z01.818 M25.562 Office Visit 02/14/2017 8:15a [place] [address] K40.90 D50.9 Office Visit 09/21/2016 10:15a Karuna Dubon MD G0439 Z00.00 J67.0 Office Visit 08/07/2016 2:15p [place] [address] Z01.818 G56.02 M48.06 Z23 Office Visit 02/07/2016 9:30a [facility] Minnie [id number] Z00.00 Office Visit 09/07/2015 2:30p Karuna Dubon MD G0438 Z00.00 M17.11 Z23 Office Visit 07/07/2014 1:15p [place] [address] 706.2 354.0 Office Visit 07/15/2013 2:15p [place] [address] 692.6 Office Visit 02/07/2013 11:00a [place] [address] 427.60 Office Visit 06/11/2012 9:00a [place] [address] V70.3 706.2 Office Visit 11/22/2010 8:00a [place] [address] 715.16 v76.44 V64.06 Office Visit 04/20/2009 10:15a [place] [address] V70.0 729.5 719.42 Office Visit 08/17/2008 2:50p [place] [address] 847.2 Office Visit 07/18/2007 8:30a [place] [address] 272.0 440.21 355.8 V17.3 Office Visit 08/24/2006 2:00p [place] [address] V72.84 Office Visit 07/17/2006 8:00a Karuna Dubon MD 62377 V70.0 389.10 Office Visit 05/31/2006 11:00a [place] [address] 727.42 Office Visit 05/18/2006 10:30[place] [address] 727.42 Plan of Care Future Appointment(s):09/30/2018 1:00 pm - Karuna Iverson MD at [facility] & [facility]04/18/2018 - Karuna Iverson MDZ01.818 Encounter for other preprocedural examinationComments:Patient is low risk for perioperative cardiorespiratory complications and may proceed to surgery without further gmvxgyiaakZ80.561 Pain in RIGHT kneeD64.9 Anemia, unspecifiedComments:He has had a chronic anemia with low b12 and iron. He responded somewhat to supplements and has been following with supervisor tumbling and rolling, Dr Esqueda. No concerning cause for the anemia otherwise.
--- OUTSIDE RECORDS SUMMARY | 2018-05-17 17:46 | XMS REPORT | Continuity of Care Document ---
:1940 Author Organization [facility] Support Name Relationship Address Phone MARIBELL BEARD I spouse [address] [place] [address] MARIBELL BEARD I spouse [address] [place] [address] Allergies and Intolerances No Known Allergies Medications RxNorm Medication Dose Route Instructions Start End Status Date Date Acetaminophen 325 1 tab oral orally every 4 06/26/20 Active MG / Hydrocodone hours as needed. 17 Bitartrate 5 MG ( MDD=6) Oral Tablet 6618120 Brimonidine 1 drp ophthalmic into the eye(s) Active tartrate 2 MG/ML (eye) 3 times per day / brinzolamide 10 (both eyes;) MG/ML Ophthalmic Suspension 10584 ferrous sulfate 325 mg oral orally every day Active (Ordered Dose: of ferrous sulfate) 874750 latanoprost 0.05 1 drp ophthalmic into the eye(s) Active MG/ML Ophthalmic (eye) once (both Solution eyes;) vitaminn b12 1000 iu oral orally every Active other day Problems Code Code System Problem Name Start Date End Date Status 34251158 SNOMED-CT Eczema 03/19/2017 Active 846475473 SNOMED-CT Cataract U Active 33513606 SNOMED-CT Glaucoma U Active 7269575 SNOMED-CT Arthritis U Active 74500130 SNOMED-CT Varicella U Active Procedures Code Code System Procedure Date 970187426 SNOMED CT Cataract extraction and insertion of intraocular lens U LEFT WRIST SURGERY U 226521856 SNOMED CT Arthroscopy of knee U Results Laboratory Results Order: PT/INR Specimen Source: Body Site: Legend: (G,H)=High, (GG,HH,CH,#H)=Above High Threshold, (#,L)=Low, (##,CL,#L,LL) =Below Low Threshold, (C,CC,CA,#A,A)=Abnormal LOINC Test Result Flag Range Units Date 5902-2 1PT Time PPP 16.8 H 9.4-12.4 sec 05/09/2018 06:15 6301-6 1INR PPP 1.5 05/09/2018 06:15 Interpretive Dana: 1 INR INTERPERTATION 2.0-3.0 THERAPEUTIC MONITORING 2.5-3.5 HEART VALVE REPLACEMENT Performing Lab Footnotes:[facility] - [id number] - [address] [place] [address] ALIZA Ruiz BHARATI Social History Code Code System Social History Description Dates Observed Observation 773311594 SNOMED CT Current Smoking Unknown if ever Status smoked UNK AdministrativeGender Sex Assigned At Unknown Vital Signs No data in the system Goals Section No data in the system Health Concerns No data in the systemEncounter Diagnosis Date Code Code System Diagnosis Status Z79.01 ICD10 CARE HOME CURRNT USE ANTICOAGULANTS Active Advance Directives *RHIO - CONSENT IS YES Directive Type Effective Date Chief Creative Officer Notes Supporting Document Name Address Phone No Directive Type 11/07/2016 11:53:59 Not Specified Not Specified Not Specified None No specified AM PT STATES NO ADVANCE DIRECTIVES Directive Type Effective Date Chief Creative Officer Notes Supporting Document Name Address Phone No [...]
--- OUTSIDE RECORDS SUMMARY | 2018-05-17 17:46 | XMS REPORT | Continuity of Care Document ---
:1940 Author Organization [facility] Support Name Relationship Address Phone MARIBELL BEARD I spouse [address] [place] [address] MARIBELL BEARD I spouse [address] [place] [address] Allergies and Intolerances No Known Allergies Medications RxNorm Medication Dose Route Instructions Start End Status Date Date Acetaminophen 325 1 tab oral orally every 4 06/26/20 Active MG / Hydrocodone hours as needed. 17 Bitartrate 5 MG ( MDD=6) Oral Tablet 0779335 Brimonidine 1 drp ophthalmic into the eye(s) Active tartrate 2 MG/ML (eye) 3 times per day / brinzolamide 10 (both eyes;) MG/ML Ophthalmic Suspension 77311 ferrous sulfate 325 mg oral orally every day Active (Ordered Dose: of ferrous sulfate) 374797 latanoprost 0.05 1 drp ophthalmic into the eye(s) Active MG/ML Ophthalmic (eye) once (both Solution eyes;) vitaminn b12 1000 iu oral orally every Active other day Problems Code Code System Problem Name Start Date End Date Status 45834796 SNOMED-CT Eczema 03/19/2017 Active 006673905 SNOMED-CT Cataract U Active 23460360 SNOMED-CT Glaucoma U Active 5605044 SNOMED-CT Arthritis U Active 66447490 SNOMED-CT Varicella U Active Procedures Code Code System Procedure Date 778635957 SNOMED CT Cataract extraction and insertion of intraocular lens U LEFT WRIST SURGERY U 024698017 SNOMED CT Arthroscopy of knee U Results Laboratory Results Order: PT/INR Specimen Source: Body Site: Legend: (G,H)=High, (GG,HH,CH,#H)=Above High Threshold, (#,L)=Low, (##,CL,#L,LL) =Below Low Threshold, (C,CC,CA,#A,A)=Abnormal LOINC Test Result Flag Range Units Date 5902-2 1PT Time PPP 22.8 H 9.4-12.4 sec 05/06/2018 07:20 6301-6 1INR PPP 2.0 05/06/2018 07:20 Interpretive Dana: 1 INR INTERPERTATION 2.0-3.0 THERAPEUTIC MONITORING 2.5-3.5 HEART VALVE REPLACEMENT Performing Lab Footnotes:[facility] - [id number] - [address] [place] [address] ALIZA Ruiz BHARATI Social History Code Code System Social History Description Dates Observed Observation 469832228 SNOMED CT Current Smoking Unknown if ever Status smoked UNK AdministrativeGender Sex Assigned At Unknown Vital Signs No data in the system Goals Section No data in the system Health Concerns No data in the systemEncounter Diagnosis Date Code Code System Diagnosis Status Z79.01 ICD10 CORRECTION CURRNT USE ANTICOAGULANTS Active Advance Directives *RHIO - CONSENT IS YES Directive Type Effective Date Soap Grinder Notes Supporting Document Name Address Phone No Directive Type 11/07/2016 11:53:59 Not Specified Not Specified Not Specified None No specified AM PT STATES NO ADVANCE DIRECTIVES Directive Type Effective Date Soap Grinder Notes Supporting Document Name Address Phone No [...]
--- OUTSIDE RECORDS SUMMARY | 2018-05-17 17:46 | XMS REPORT | Continuity of Care Document ---
:1940 Author Organization [facility] Support Name Relationship Address Phone MARIBELL BEARD I spouse [address] [place] [address] MARIBELL BEARD I spouse [address] [place] [address] Allergies and Intolerances No Known Allergies Medications RxNorm Medication Dose Route Instructions Start End Status Date Date Acetaminophen 325 1 tab oral orally every 4 06/26/20 Active MG / Hydrocodone hours as needed. 17 Bitartrate 5 MG ( MDD=6) Oral Tablet 2573424 Brimonidine 1 drp ophthalmic into the eye(s) Active tartrate 2 MG/ML (eye) 3 times per day / brinzolamide 10 (both eyes;) MG/ML Ophthalmic Suspension 89542 ferrous sulfate 325 mg oral orally every day Active (Ordered Dose: of ferrous sulfate) 254506 latanoprost 0.05 1 drp ophthalmic into the eye(s) Active MG/ML Ophthalmic (eye) once (both Solution eyes;) vitaminn b12 1000 iu oral orally every Active other day Problems Code Code System Problem Name Start Date End Date Status 43275211 SNOMED-CT Eczema 03/19/2017 Active 111193520 SNOMED-CT Cataract U Active 73307289 SNOMED-CT Glaucoma U Active 7867166 SNOMED-CT Arthritis U Active 84337822 SNOMED-CT Varicella U Active Procedures Code Code System Procedure Date 123186688 SNOMED CT Cataract extraction and insertion of intraocular lens U LEFT WRIST SURGERY U 182255631 SNOMED CT Arthroscopy of knee U Results Laboratory Results Order: PT/INR Specimen Source: Body Site: Legend: (G,H)=High, (GG,HH,CH,#H)=Above High Threshold, (#,L)=Low, (##,CL,#L,LL) =Below Low Threshold, (C,CC,CA,#A,A)=Abnormal LOINC Test Result Flag Range Units Date 5902-2 1PT Time PPP 29.7 H 9.4-12.4 sec 05/02/2018 06:30 6301-6 1INR PPP 2.6 05/02/2018 06:30 Interpretive Dana: 1 INR INTERPERTATION 2.0-3.0 THERAPEUTIC MONITORING 2.5-3.5 HEART VALVE REPLACEMENT Performing Lab Footnotes:[facility] - [id number] - [address] [place] [address] ALIZA Ruiz BHARATI Social History Code Code System Social History Description Dates Observed Observation 371093649 SNOMED CT Current Smoking Unknown if ever Status smoked UNK AdministrativeGender Sex Assigned At Unknown Vital Signs No data in the system Goals Section No data in the system Health Concerns No data in the systemEncounter Diagnosis Date Code Code System Diagnosis Status Z79.01 ICD10 [facility] CURRNT USE ANTICOAGULANTS Active Advance Directives *RHIO - CONSENT IS YES Directive Type Effective Date Lead Ruby On Rails Developer Notes Supporting Document Name Address Phone No Directive Type 11/07/2016 11:53:59 Not Specified Not Specified Not Specified None No specified AM PT STATES NO ADVANCE DIRECTIVES Directive Type Effective Date Lead Ruby On Rails Developer Notes Supporting Document Name Address Phone No [...]
--- OUTSIDE RECORDS SUMMARY | 2018-05-17 17:46 | XMS REPORT ---
:1940 External Reference #:[id number] Author Organization [facility] Address [address] [place] [address] Phone [phone] Care Team Providers Name Role Phone Karuna Iverson MD Primary Care Physician Unavailable Payers Type Date Identification Numbers Payment Provider Subscriber Commercial Policy Number: [id number] [facility] Luiz Duque ([employer]suh[employer]) PayID: [id number] [address] [place] [address] Problems Date Description Provider Status Onset: 03/22/2018 Localized, primary osteoarthritis Sirena Sinha M.D. Active Onset: 05/06/2018 Arthroplasty of knee Sirena Sinha M.D. Active Family History Date Family Member(s) Problem(s) Comments General Diabetes General Heart Disease General Hypertension General Stroke Social History Type Date Description Comments Lives With Spouse Occupation Retired [employer] E[employer] Use Drinks 1 Alcoholic Beverage Per Week Smoking Patient has never smoked Allergies, Adverse Reactions, Alerts Date Description Reaction Status Severity Comments 03/22/2018 NKDA active Medications Medication Date Status Form Strength Qnty SIG Indications Ordering Provider Latanoprost Active Solution 0.005% Unknown /0000 Simbrinza Active Suspension 1-0.2% Unknown /0000 Aleve Active Tablets 220mg 2 tablets Unknown /0000 as needed for pain Iron Active Tablets 325(65Fe) 1 by Unknown /0000 mg mouth every day Vitamin B12 Active Tablets ER 1000mcg 1 by Unknown /0000 mouth 3 times a week Naproxen Sodium Active Unknown /0000 Tamsulosin HCL Active Capsules 0.4mg 1 by Unknown mouth every day Bisacodyl Active Suppository 10mg every 24 hours as needed Cyclobenzaprine Active Tablets 10mg 1 tablet Unknown by mouth q8 hours as needed muscle spasms Oxycodone-Acetami Active as needed Unknown nophen /0000 Sorbitol Active as needed Unknown Acetaminophen Active prn Warfarin Sodium Active Tablets 4mg take daily or as directed Vital Signs Date Vital Result Comment 05/06/2018 Height 69.5 inches 5'9.50" Weight 177.00 lb Heart Rate 62 /min BP Systolic Sitting 104 mmHg BP Diastolic Sitting 60 mmHg Respiratory Rate 16 /min Pain Level 0 BMI (Body Mass Index) 25.8 kg/m2 04/12/2018 Height 69.5 inches 5'9.50" Weight 177.00 lb Heart Rate 76 /min BP Systolic 160 mmHg BP Diastolic 84 mmHg Respiratory Rate 24 /min Body Temperature 97.7 F BMI (Body Mass Index) 25.8 kg/m2 03/22/2018 Height 72 inches 6'0" Weight 170.00 lb Heart Rate 78 /min BP Systolic Sitting 178 mmHg BP Diastolic Sitting 88 mmHg Respiratory Rate 16 /min Body Temperature 98.6 F Pain Level 0 BMI (Body Mass Index) 23.1 kg/m2 Results Test Date Test Result H/L Range Note CBC Auto Diff 04/12/2018 White Blood Count 6.0 10^3/uL 3.5-10.8 Red Blood Count 4.07 10^6/uL 4.0-5.4 Hemoglobin 12.1 g/dL Low 14.0-18.0 Hematocrit 37 % Low 42-52 Mean Corpuscular Volume 90 fL 80-94 Mean Corpuscular Hemoglobin 30 pg 27-31 Mean Corpuscular HGB Conc 33 g/dL 31-36 Red Cell Distribution Width 14 % 10.5-15 Platelet Count 293 10^3/uL 150-450 Mean Platelet Volume 7.3 um3 Low 7.4-10.4 Abs Neutrophils 4.1 10^3/uL 1.5-7.7 Abs Lymphocytes 1.2 10^3/uL 1.0-4.8 Abs Monocytes 0.6 10^3/uL 0-0.8 Abs Eosinophils 0.1 10^3/uL 0-0.6 Abs Basophils 0 10^3/uL 0-0.2 Abs Nucleated RBC 0 10^3/uL Granulocyte % 68.4 % 38-83 Lymphocyte % 20.3 % Low 25-47 Monocyte % 9.3 % High 0-7 Eosinophil % 1.2 % 0-6 Basophil % 0.8 % 0-2 Nucleated Red Blood Cells % 0 Urinalysis Profile 04/12/2018 Urine Color Straw Urine Appearance Clear Urine Specific [place] 1.009 Low 1.010-1.030 Urine pH 6.0 5-9 Urine Urobilinogen Negative Negative Urine Ketones Negative Negative Urine Protein Negative Negative Urine Leukocytes Negative Negative Urine Blood Negative Negative Urine Nitrite Negative Negative Urine Bilirubin Negative Negative Urine Glucose Negative Negative Inr/Protime 04/12/2018 Inr 0.99 0.77-1.02 Laboratory test finding 04/12/2018 Partial Thrombo Time 37.0 seconds High 26.0-36.3 PTT Comp Metabolic Panel 04/12/2018 Sodium 140 mmol/L 139-145 Potassium 4.2 mmol/L 3.5-5.0 Chloride 103 mmol/L 101-111 Co2 Carbon Dioxide 28 mmol/L 22-32 Anion Gap 9 mmol/L 2-11 Glucose 94 mg/dL 70-100 Blood Urea Nitrogen 17 mg/dL 6-24 Creatinine 0.86 mg/dL 0.67-1.17 BUN/Creatinine Ratio 19.8 8-20 Calcium 9.3 mg/dL 8.6-10.3 Total Protein 7.0 g/dL 6.4-8.9 Albumin 4.2 g/dL 3.2-5.2 Globulin 2.8 g/dL 2-4 Albumin/Globulin Ratio 1.5 1-3 Total Bilirubin 0.50 mg/dL 0.2-1.0 Alkaline Phosphatase 90 U/L 34-104 Alt 14 U/L 7-52 Ast 17 U/L 13-39 Egfr Non- 85.8 >60 Egfr 110.3 >60 1 Type & Screen 04/12/2018 Patient Blood Type O Negative Antibody Screen NEGATIVE Urine Culture And Sensitivities 04/12/2018 Urine Culture SEE RESULT BELOW 2 1 Because ethnic data is not always readily available, this report includes an eGFR for both -Americans and non- Americans. The National Kidney Disease Education Program (NKDEP) does not endorse the use of the MDRD equation for patients that are not between the ages of 18 and 70, are , have extremes of body size, muscle mass, or nutritional status, or are non- or non-. According to the National Kidney Foundation, irrespective of diagnosis, the stage of the disease is based on the level of kidney function: Stage Description GFR(mL/min/1.73 m(2)) 1 Kidney damage with normal or decreased GFR 90 2 Kidney damage with mild decrease in GFR 60-89 3 Moderate decrease in GFR 30-59 4 Severe decrease in GFR 15-29 5 Kidney failure <15 (or dialysis) 2 SEE RESULT BELOW Name: LUIZ DUQUE : [address]: Sirena Sinha MD Acct: [id number] Unit: [id number] AGE: 77 Location: [facility] Re04/12/18 SEX: M Status: REG REF SPEC: [id number] [place]: 04/12/18-[address]: Sirena Sinha MD REQ: [id number] RECD: 04/12/185223 STATUS: COMP _ SOURCE: URINE SPDESC: ORDERED: Urine Culture QUERIES: Urine Source: Clean Catch Procedure Result Reported Site Urine Culture Final 04/13/18- 1222 ML No Growth (<1,000 CFU/mL) * ML - Main Lab . END OF REPORT DEPARTMENT OF PATHOLOGY, [address] [place] [address] Faraz Mahan M.D. Director [facility] # [id number] Procedures Date CPT Code Description Status 04/25/2018 04210 TKR Total Knee Replacement Completed 04/25/2018 13761 TKR Total Knee Replacement Completed Encounters Type Date Location Provider CPT E/M Dx Office Visit 03/22/2018 9:00a [facility] Sirena Sinha M.D. [address] M17.0 [facility] M21.161 M21.062 M25.561 M25.562 M25.461 M25.462 Plan of Care Future Appointment(s):05/31/2018 10:15 am - Sirena Sinha M.D. at [facility]05/06/2018 - Sirena Sinha M.D.Z47.1 Aftercare following joint replacement surgeryFollow up:Follow up: 3 yddwsE75.651 Presence of right artificial knee gynyuY15.561 Pain in right knee
--- OUTSIDE RECORDS SUMMARY | 2018-05-17 17:47 | XMS REPORT ---
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 Group Name: $[id number] [address] PayID: [id number] [place] [address] Problems Date Description Provider Status Onset: 11/22/2010 [...] B-12 10/02/ Active Tablets 1000mcg take one [facility]or, 2016 tablet jam Beckman MD other day by mouth Ferrous 10/02/ Active Tablets 325(36Fe) 1 by mouth Iverson, Gluconate 2016 mg twice Karuna, daily Latanoprost [...] 1 tablet 4 Kishor, 2013 - times Karuna, 07/27/ daily for 2013 7 days No [...] Tablets 600mg 60tabs 1 po 3-4 847.2 [facility] 2007 - times day Karuna, 10/16/ with food 2007 Dicloxacillin 05/18/ Hx Capsules 500mg 28caps 1 PO Q6H X 727.42 [facility]or 2005 - 7 Days Karuna, 05/25/ 2005 Tramadol HCL / Hx Tablets 50mg one or two Suzanne, 0000 - by mouth [place] 09/05/ four times [facility] 2015 a day as needed pain Diclofenac / Hx Tablets DR Palacios, Sodium 0000 - [place] 02/03/ Ortho 2016 Immunizations CPT Code Status Date Vaccine Lot # [id number] Given 09/24/2017 Pneumococcal 23 Immunization Adult Or [id number] Immunosuppressed Patient 56879 Given 09/24/2017 Fluzone Highdose Age 65 And Over Preservative & [id number] Antibiotic Free 50743 Given 08/07/2016 Tetanus And Diptheria Toxoids For Adult [id number] Use-preservative free 65518 Given 08/07/2016 Prevnar 13 Pneumococal Conjugate Vaccine Z21235 37749 Given 08/07/2016 Fluzone Highdose Age 65 And Over Preservative & [id number] Antibiotic Free 32327 Given 09/07/2015 Fluzone Highdose Age 65 And Over Preservative & Antibiotic Free 98616 Given 09/07/2015 Fluzone Highdose Age 65 And Over Preservative & [id number] Antibiotic Free Q2038 Refused 07/15/2013 Fluzone Trivalent Immunization 27879 Refused 11/22/2010 Zoster (Zostavax) 81310 Refused 11/22/2010 Pneumococcal 23 Immunization Adult Or Immunosuppressed Patient 05378 Refused 11/22/2010 Tdap (Adacel) Ages 7 And Above Only Vital Signs Date Vital Result Comment 10/15/2017 Body Temperature 98.3 F Weight 181.00 [...] Z#PH Urine 5 Z#Blood, Urine NEG Z#Specific [place] 1.010 Z#Ketones Urine NEG Z#Bili,Urine NEG Z#Glu Urine NEG Laboratory test finding 11/22/2010 PSA 1.88 ng/ml 0.00-4.00 13 Lipid Panel 04/20/2009 Cholesterol 208 mg/dL High 50-199 14 Triglycerides 70 mg/dL 10-150 14 HDL 58 mg/dL 29-71 14, 15 Chol/HDL Ratio 3.6 Ratio Low [...] Unless otherwise specified, testing performed by Laboratory [facility] [place] [address] 2 Unless otherwise specified, testing performed by [facility] [place] [address] 3 Unless otherwise specified, testing performed by [facility] [place] [address] 4 Concerning GFR Guidelines for Americans: Normal [...] 8 Unless otherwise specified, testing performed by [facility] [address] [place] [address] 9 Unless otherwise specified, testing performed by [facility] [place] [address] 10 Unless otherwise specified, testing performed by [facility] [address] [place] [address] 11 Per NCEP ATP III Guidelines: Results lower than 40 mg/dL are suggestive of increased risk for coronary artery disease. Results > or=to 60 mg/dL are considered a negative risk factor. 12 Per NCEP ATP III Guidelines: Optimal: <100 Near optimal: 100-129 Borderline high: 130-159 High: 160-189 Very high: >189 13 BEGINNING 12/31/06, PSA VALUES ASSAYED AT [employer] USES AN EIA METHODOLOGY MANUFACTURED BY [email or web address] FOR USE ON THE DXI ANALYZER. VALUES [...] 20 BEGINNING 12/31/06, PSA VALUES ASSAYED AT [employer] USES AN EIA METHODOLOGY MANUFACTURED BY [email or web address] FOR USE ON THE DXI ANALYZER. VALUES [...] next visit 24 PSA VALUES ASSAYED AT [employer] USES AN EIA METHODOLOGY MANUFACTURED BY [employer] FOR USE ON THE NEXIA ANALYZER. VALUES OBTAINED WITH DIFFERENT ASSAY METHODS OR KITS CAN NOT BE USED INT ERCHANGEABLY. SERUM PSA MEASUREMENT IS NOT AN ABSOLUTE TEST FOR MALIGNANCY, THE PSA VALUE SHOULD BE USED IN CONJUNCTION WITH INFORMATION AVAILABLE FROM CLINICAL EVALUATION AND OTHER DIAGNOSTIC PROCEDURES. Procedures Date CPT Code Description Status Comment 03/13/2017 60252 Electrocardiogram Complete Completed 08/07/2016 94544 Electrocardiogram Complete Completed 11/05/[address] Gracia 07/23/2007 71716 Cardiovascular Stress Test Tracing Only Completed 07/23/2007 60768 Nuclear Myocardial Perfusion Study W/Ejection Completed Fraction 07/23/2007 66813 Nuclear Myocardial Perfusion Study W/Wall Completed Motion 07/23/2007 64626 Nuclear Spect. Imaging (Multi) At Rest/And/Or Completed Stress 08/24/2006 14137 Electrocardiogram Complete Completed 07/17/2006 99637 Visual Screening Test Completed 07/17/2006 02415 Audiometry, Loudness Balance Test, Alternate Completed Binaural Or Monaural Encounters Type Date Location Provider CPT E/M Dx Office Visit 10/15/2017 1:30p [place] [address] J06.9 R06.2 Office Visit 09/24/2017 9:30a Karuna Dubon MD G0439 Z00.00 M17.0 R26.89 R03.0 Z23 Office Visit 06/08/2017 1:30p [place] [address] Z01.818 K40.90 D64.9 Office Visit 03/13/2017 1:30p [place] [address] Z01.818 M25.562 Office Visit 02/14/2017 8:15a [place] [address] K40.90 D50.9 Office Visit 09/21/2016 10:15a Karuna Dubon MD G0439 Z00.00 J67.0 Office Visit 08/07/2016 2:15p [place] [address] Z01.818 G56.02 M48.06 Z23 Office Visit 02/07/2016 9:30a [facility]ie 27502QS Z00.00 Office Visit 09/07/2015 2:30p Karuan Dubon MD G0438 Z00.00 M17.11 Z23 Office Visit 07/07/2014 1:15p [place] [address] 706.2 354.0 Office Visit 07/15/2013 2:15p [place] [address] 692.6 Office Visit 02/07/2013 11:00a [place] [address] 427.60 Office Visit 06/11/2012 9:00[place] [address] V70.3 706.2 Office Visit 11/22/2010 8:00[place] [address] 715.16 v76.44 V64.06 Office Visit 04/20/2009 10:15[place] [address] V70.0 729.5 719.42 Office Visit 08/17/2008 2:50p [place] [address] 847.2 Office Visit 07/18/2007 8:30[place] [address] 272.0 440.21 355.8 V17.3 Office Visit 08/24/2006 2:00p [place] [address] V72.84 Office Visit 07/17/2006 8:00[place] [address] V70.0 389.10 Office Visit 05/31/2006 11:00[place] [address] 727.42 Office Visit 05/18/2006 10:30[place] [address] 727.42 Plan of Care Future Appointment(s):04/18/2018 11:00 am - Karuna Iverson MD at [facility]11/30/2017 1:00 pm - Karuna Iverson MD at [facility]12/16/2016 - Karuna Iverson MDJ06.9 Acute upper respiratory infection, unspecifiedMiscellaneous: You have a cold which is caused by a virus. Treatment includes increasing fluid intake, use a humidifier if you have one or breath in steam from a sink filled with hot water. You can use robitussin ormucinex for cough. You can use decongestant like coricidinfor runny nose, congestion. Avoid medication with pseudoephedrine or phenylephrine as they can raise the blood pressure Use tylenol for fever,aches and pains Call the office if you have trouble breathing or persistent wrwyijX05.2 Wheezing
[2018-05-17 18:59] VITALS: BP 147/70
== END 2018-05-17 18:57 | disposition home or self-care (01) ==
LOC: ED 15:41
DX: S81.811A Laceration without foreign body, right lower leg, initial encounter (principal); W10.9XXA Fall (on) (from) unspecified stairs and steps, initial encounter; Y92.009 Unspecified place in unspecified non-institutional (private) residence as the place of occurrence of the external cause; D64.9 Anemia, unspecified; F17.200 Nicotine dependence, unspecified, uncomplicated; Z96.651 Presence of right artificial knee joint; Z79.899 Other long term (current) drug therapy
CPT/HCPCS: 12002; 99282; A9270-GY; J2001

== ENCOUNTER 2018-08-15 12:10 | Inpatient (IN) | payer MEDICARE ==
--- NOTE | 2018-08-01 20:17 | HP ---
HISTORY AND PHYSICAL: DATE OF ADMISSION/SURGERY: 08/15/18 DATE OF OFFICE VISIT: 07/22/18 SURGEON: Sirena Sinha MD * (DICTATED BY CICI QUIJANO) PROCEDURE: Left total knee arthroplasty. CHIEF COMPLAINT: Left knee pain. HISTORY OF PRESENT ILLNESS: Mr. Duque is an 78-year-old gentleman with continued complaints of left knee pain secondary to end-stage osteoarthritis. He has failed conservative treatment and elected to proceed with a left total knee arthroplasty. PAST MEDICAL HISTORY: Chronic anemia. PAST SURGICAL HISTORY: Bilateral knee scopes, right total knee arthroplasty, left carpal tunnel release, and hernia repair. CURRENT MEDICATIONS: 1. Iron. 2. Latanoprost eye drops. 3. Vitamin B12. ALLERGIES: None. FAMILY HISTORY: Breast cancer. SOCIAL HISTORY: He is an 78-year-old gentleman, lives alone. He does not smoke or use drugs. REVIEW OF SYSTEMS: A complete 14-point of review of systems is reviewed. The patient is positive for chronic anemia. He denies history of DVT, PE, hepatitis , HIV, or anesthesia problems. PHYSICAL EXAMINATION GENERAL: He is a well developed, well nourished, in no acute distress. VITAL SIGNS: He stands 72 inches tall, weighs 170 pounds. His blood pressure 150/84 and his heart rate is 72. HEENT: Normocephalic, atraumatic. NECK: Supple. No palpable lymph nodes. PULMONARY: Lungs are clear to auscultation bilaterally. CARDIO: Regular rate and rhythm. Strong S1, S2. ABDOMEN: Soft, nontender, and nondistended. NEUROLOGIC: He is alert and oriented x3. MUSCULOSKELETAL: Left lower extremity: The skin is intact. There are no open wounds or abrasions. There is a moderate joint effusion. He has some tenderness over the medial and lateral joint line. He has a 12-degree valgus deformity of the left knee and his range of motion is 10 to 120 degrees with significant patellofemoral crepitus. He has a left footdrop and numbness and tingling over the entire left foot. He walks with an antalgic-type gait. ASSESSMENT AND PLAN: Mr. Duque is an 78-year-old gentleman with continued complaints of left knee pain secondary to end-stage osteoarthritis. He has failed conservative treatment. He has elected to proceed with a left total knee arthroplasty, which is scheduled for 08/15/[address] Sinha has discussed the risks and benefits of the surgery at today's visit and all of his questions were answered. He will follow up with Dr. Sinha 2 weeks after the surgery. CICI QUIJANO [id number]/[facility] #: [id number] [facility]PITALFidel
[~2018-08-15 12:10] MED LIST changes: -Acetaminophen IV 1GM/100ML * 1,000 MG/100 ML VIAL IVPB ONE; -Midazolam* 1 MG/ML 5 ML VIAL (5 MG) ONE; -Ondansetron ODT TAB* 4 MG PO ONE; +Tranexamic Acid 1,000 MG in NS 0.9% 50 ML* (outpatient use) IV SCH; -fentaNYL* 50 MCG/ML 2 ML VIAL (100 MCG VIAL) ONE
--- OUTSIDE RECORDS SUMMARY | 2018-08-15 12:17 | XMS REPORT ---
:1940 External Reference #:[id number] Author Organization [facility] Address [address] [address] Phone [phone] Care Team Providers Name Role Phone Karuna Iverson MD Care Team Information Nylon Mender Unavailable Payers Type Date Identification Numbers Payment Provider Subscriber Commercial Effective: Policy Number: [facility] Medicare Yaniv Duque 2014 [id number] Solutions Group Number: [id number] [address] [address] Group Name: [id number] [phone] [place] [address] PayID: [id number] Medigap Part B Policy Number: [id number] [employer] Yaniv Duque Group Number: [id number] UDS [address] Group Name: $[id number] [address] PayID: [id number] [place] [address] Problems Date Description Provider Status Onset: 11/22/2010 [...] CPT Code Status Date Vaccine Lot # [id number] Given 09/24/2017 Pneumococcal 23 Immunization Adult Or [id number] Immunosuppressed Patient 60997 Given 09/24/2017 Fluzone Highdose Age 65 And Over Preservative & [id number] Antibiotic Free 59649 Given 08/07/2016 Tetanus And Diptheria Toxoids For Adult [id number] Use-preservative free 40700 Given 08/07/2016 Prevnar 13 Pneumococal Conjugate Vaccine [id number] 47341 Given 08/07/2016 Fluzone Highdose Age 65 And Over Preservative & [id number] Antibiotic Free 33339 Given 09/07/2015 Fluzone Highdose Age 65 And Over Preservative & Antibiotic Free 82794 Given 09/07/2015 Fluzone Highdose Age 65 And Over Preservative & [id number] Antibiotic Free 93067 Refused 08/05/2018 Fluzone Highdose Age 65 And Over Preservative & Antibiotic Free Q2038 Refused 07/15/2013 Fluzone Trivalent Immunization 05715 Refused 11/22/2010 Zoster (Zostavax) 86511 Refused 11/22/2010 Pneumococcal 23 Immunization Adult Or Immunosuppressed Patient 28439 Refused 11/22/2010 Tdap (Adacel) Ages 7 And Above Only Vital Signs Date Vital Result Comment 08/05/2018 Weight 183.00 lb Heart Rate 62 /min BP Systolic 154 mmHg BP Diastolic 80 mmHg Height 72 inches 6'0" BMI (Body Mass Index) 24.8 kg/m2 04/18/2018 Weight 183.00 lb Heart Rate 83 [...] Z#PH Urine 5 Z#Blood, Urine NEG Z#Specific [place] 1.010 Z#Ketones Urine NEG Z#Bili,Urine NEG Z#Glu Urine NEG Laboratory test finding 11/22/2010 PSA 1.88 ng/ml 0.00-4.00 13 Lipid Panel 04/20/2009 Cholesterol 208 mg/dL High 50-199 14 Triglycerides 70 mg/dL 10-150 14 HDL 58 mg/dL - 14, 15 Chol/HDL Ratio 3.6 Ratio Low [...] 1 Unless otherwise specified, testing performed [place] [address] 2 Unless otherwise specified, testing performed by [facility] [place] [address] 3 Unless otherwise specified, testing performed by [facility] [place] [address] 4 Concerning GFR Guidelines for Americans: Normal [...] 8 Unless otherwise specified, testing [place] [address] 9 Unless otherwise specified, testing performed by [facility] [place] [address] 10 Unless otherwise specified, testing [place] [address] 11 Per NCEP ATP III Guidelines: Results lower than 40 mg/dL are suggestive of increased risk for coronary artery disease. Results > or=to 60 mg/dL are considered a negative risk factor. 12 Per NCEP ATP III Guidelines: Optimal: <100 Near optimal: 100-129 Borderline high: 130-159 High: 160-189 Very high: >189 13 BEGINNING 12/31/06, PSA VALUES ASSAYED AT [employer] USES AN EIA METHODOLOGY MANUFACTURED BY [employer] FOR USE ON THE DXI ANALYZER. VALUES [...] 20 BEGINNING 12/31/06, PSA VALUES ASSAYED AT [employer] USES AN EIA METHODOLOGY MANUFACTURED BY [employer] FOR USE ON THE DXI ANALYZER. VALUES [...] next visit 24 PSA VALUES ASSAYED AT [employer] USES AN EIA METHODOLOGY MANUFACTURED BY [employer] FOR USE ON THE NEXIA ANALYZER. VALUES OBTAINED WITH DIFFERENT ASSAY METHODS OR KITS CAN NOT BE USED INT ERCHANGEABLY. SERUM PSA MEASUREMENT IS NOT AN ABSOLUTE TEST FOR MALIGNANCY, THE PSA VALUE SHOULD BE USED IN CONJUNCTION WITH INFORMATION AVAILABLE FROM CLINICAL EVALUATION AND OTHER DIAGNOSTIC PROCEDURES. Procedures Date CPT Code Description Status Comment 03/13/2017 20751 Electrocardiogram Complete Completed 08/07/2016 98204 Electrocardiogram Complete Completed 11/05/[address] Gracia 07/23/2007 98479 Cardiovascular Stress Test Tracing Only Completed 07/23/2007 35138 Nuclear Myocardial Perfusion Study W/Ejection Completed Fraction 07/23/2007 52684 Nuclear Myocardial Perfusion Study W/Wall Completed Motion 07/23/2007 83373 Nuclear Spect. Imaging (Multi) At Rest/And/Or Completed Stress 08/24/2006 32334 Electrocardiogram Complete Completed 07/17/2006 77216 Visual Screening Test Completed 07/17/2006 89679 Audiometry, Loudness Balance Test, Alternate Completed Binaural Or Monaural Encounters Type Date Location Provider CPT E/M Dx Office Visit 04/18/2018 11:00[place] [address] Z01.818 M25.561 D64.9 Office Visit 10/15/2017 1:30p [place] [address] J06.9 R06.2 Office Visit 09/24/2017 9:30a Karuna Dubon MD G0439 Z00.00 M17.0 R26.89 R03.0 Z23 Office Visit 06/08/2017 1:30[place] [address] Z01.818 K40.90 D64.9 Office Visit 03/13/2017 1:30[place] [address] Z01.818 M25.562 Office Visit 02/14/2017 8:15a [place] [address] K40.90 D50.9 Office Visit 09/21/2016 10:15a Karuna Dubon MD G0439 Z00.00 J67.0 Office Visit 08/07/2016 2:15p [place] [address] Z01.818 G56.02 M48.06 Z23 Office Visit 02/07/2016 9:30a [facility]ie [id number] Z00.00 Office Visit 09/07/2015 2:30p Karuna Dubon MD G0438 Z00.00 M17.11 Z23 Office Visit 07/07/2014 1:15[place] [address] 706.2 354.0 Office Visit 07/15/2013 2:15p [place] [address] 692.6 Office Visit 02/07/2013 11:00[place] [address] 427.60 Office Visit 06/11/2012 9:00[place] [address] V70.3 706.2 Office Visit 11/22/2010 8:00[place] [address] 715.16 v76.44 V64.06 Office Visit 04/20/2009 10:15[place] [address] V70.0 729.5 719.42 Office Visit 08/17/2008 2:50p [place] [address] 847.2 Office Visit 07/18/2007 8:30[place] [address] 272.0 440.21 355.8 V17.3 Office Visit 08/24/2006 2:00p [place] [address] V72.84 Office Visit 07/17/2006 8:00[place] [address] V70.0 389.10 Office Visit 05/31/2006 11:00[place] [address] 727.42 Office Visit 05/18/2006 10:30[place] [address] 727.42 Plan of Care Future Appointment(s):09/30/2018 1:00 pm - Karuna Iverson MD at [facility] - Karuna Iverson MDZ01.818 Encounter for other preprocedural examinationComments:Patient is low risk for perioperative cardiorespiratory complications and may proceed to surgery without further kpcaigfbzsI01.12 Unilateral primary osteoarthritis, LEFT kneeD64.9 Anemia, unspecifiedComments: He continues with supplements and follows with front office java developer
--- OUTSIDE RECORDS SUMMARY | 2018-08-15 12:18 | XMS REPORT ---
:1940 External Reference #:[id number] Author Organization [facility] Address [address] [place] [address] Phone [phone] Care Team Providers Name Role Phone Karuna Iverson MD Primary Care Physician Unavailable Payers Type Date Identification Numbers Payment Provider Subscriber Commercial Policy Number: [id number] [facility] Luiz Duque ([employer]su[employer]) PayID: [id number] [address] [place] [address] Problems Date Description Provider Status Onset: 03/22/2018 Localized, primary osteoarthritis Sirena Sinha M.D. Active Onset: 05/06/2018 Arthroplasty of knee Sirena Sinha M.D. Active Onset: 04/29/2018 Anemia Srinivasan Chu M.D. Active Onset: 04/29/2018 Paroxysmal supraventricular tachycardia Srinivasan Chu M.D. Active Family History Date Family Member(s) [...] /0000 Simbrinza Active Suspension 1-0.2% Unknown /0000 Iron Active Tablets 325(65Fe) 1 by Unknown /0000 mg mouth every day Vitamin B12 Active Tablets ER 1000mcg 1 by Unknown /0000 mouth 3 times a week Acetaminophen Active prn Unknown /0000 Cephalexin 06/07 Hx Tablets 500mg 28tab 1 by Z47.1 s mouth Bharath, - four M.D. 06/16 times day for 7 days Aleve 00 Hx Tablets 220mg 2 tablets Unknown /0000 as needed - for pain 07/21 Naproxen Sodium Hx Unknown /0000 - 07/21 Tamsulosin HCL Hx Capsules 0.4mg 1 by Unknown /0000 mouth - every day 07/21 Bisacodyl Hx Suppository 10mg every 24 Unknown /0000 hours as - needed 06/16 Cyclobenzaprine Hx Tablets 10mg 1 tablet Unknown HCL /0000 by mouth - q8 hours 06/16 as needed muscle spasms Oxycodone-Acetami Hx as needed Unknown nophen /0000 - 06/06 Sorbitol Hx as needed Unknown /0000 - 07/21 Warfarin Sodium Hx Tablets 4mg take Unknown /0000 daily or - as 06/06 Cephalexin Hx Capsules 500mg Unknown /0000 - 06/06 Vital Signs Date Vital Result Comment 07/22/2018 Height 72 inches 6'0" Weight 170.00 lb BP Systolic 150 mmHg BP Diastolic 84 mmHg Body Temperature 97.7 F BMI (Body Mass Index) 23.1 kg/m2 06/17/2018 Height 72 inches 6'0" Weight 173.00 lb Heart Rate 72 /min Respiratory Rate 16 /min Pain Level 0 BMI (Body Mass Index) 23.5 kg/m2 06/07/2018 Height 72 inches 6'0" Weight 173.00 lb BP Systolic 126 mmHg BP Diastolic 62 mmHg Respiratory Rate 16 /min Pain Level 0 BMI (Body Mass Index) 23.5 kg/m2 05/27/2018 Height 72 inches 6'0" Weight 173.00 lb BP Systolic 124 mmHg BP Diastolic 60 mmHg Body Temperature 98.1 F Pain Level 0 BMI (Body Mass Index) 23.5 kg/m2 05/21/2018 Height 69.5 inches 5'9.50" Weight 173.00 lb Heart Rate 71 /min Respiratory Rate 16 /min Pain Level 0 BMI (Body Mass Index) 25.2 kg/m2 05/06/2018 Height 69.5 inches 5'9.50" Weight 177.00 [...] Color Straw Urine Appearance Clear Urine Specific [place] 1.009 Low 1.010-1.030 Urine pH 6.0 5-9 [...] [address]: Sirena Sinha MD Acct: [id number] Unit: [id number] AGE: 77 Location: [facility] Re04/12/18 SEX: M Status: REG REF SPEC: [id number] [place]: 04/12/18-[address] [facility] [address]: Sirena Sinha MD REQ: [id number] RECD: 04/12/182422 STATUS: COMP _ SOURCE: URINE SPDESC: ORDERED: Urine Culture QUERIES: Urine Source: Clean Catch Procedure Result Reported Site Urine Culture Final 04/13/18- 1222 ML No Growth (<1,000 CFU/mL) * ML - Main Lab . END OF REPORT DEPARTMENT OF PATHOLOGY, [address] [place] [address] Faraz Mahan M.D. Director [facility] # [id number] Procedures Date CPT Code Description Status 04/29/2018 94589 EKG, Interpretation Only Completed 04/25/2018 16538 TKR Total Knee Replacement Completed 04/25/2018 37423 TKR Total Knee Replacement Completed 04/12/2018 66358 EKG, Interpretation Only Completed Encounters Type Date Location Provider CPT E/M Dx Office Visit 04/29/2018 [facility], Srinivasan Chu, 65893 I47.1 8:21a Michelle Green D64.9 Office Visit 03/22/2018 9:00a [facility] Sinha M.D. 00201 M17.0 [facility] M21.161 M21.062 M25.561 M25.562 M25.461 M25.462 Plan of Care Future Appointment(s):08/26/2018 10:00 am - Sirena Sinha M.D. at [facility]07/22/2018 - Sirena Sinha M.D.Z47.1 Aftercare following joint replacement surgeryFollow up:Follow up:Z96.651 Presence of right artificial knee rvtxuC43.562 Pain in left kneeM25.462 Effusion, left kneeM17.12 Unilateral primary osteoarthritis, left kneeFollow up:Follow up: 10-14 days postop
--- OUTSIDE RECORDS SUMMARY | 2018-08-15 12:18 | XMS REPORT | Continuity of Care Document ---
:1940 Author Organization [facility] Care Team Providers Name Role Phone UNKNOWN, UNKNOWN Admitting Physician Unavailable UNKNOWN, UNKNOWN Attending Physician Unavailable RO SORIANO Primary Care Physician Allergies and Intolerances No Known Allergies Medications RxNorm Medication Dose Route Instructions Start End Status Date Date 543272 Acetaminophen 325 1 tab oral orally every 4 06/26/20 Active MG / Hydrocodone hours as needed. 17 Bitartrate 5 MG ( MDD=6) Oral Tablet 8609407 Brimonidine 1 drp ophthalmic into the eye(s) Active tartrate 2 MG/ML (eye) 3 times per day / brinzolamide 10 (both eyes;) MG/ML Ophthalmic Suspension 56266 ferrous sulfate 325 mg oral orally every day Active (Ordered Dose: of ferrous sulfate) 599349 latanoprost 0.05 1 drp ophthalmic into the eye(s) Active MG/ML Ophthalmic (eye) once (both Solution eyes;) vitaminn b12 1000 iu oral orally every Active other day Problems Code Code System Problem Name Start Date End Date Status 06135312 SNOMED-CT Eczema 03/19/2017 Active 592601683 SNOMED-CT Cataract U Active 70683064 SNOMED-CT Glaucoma U Active 2597451 SNOMED-CT Arthritis U Active 52848270 SNOMED-CT Varicella U Active Procedures Code Code System Procedure Date 857968163 SNOMED CT Cataract extraction and insertion of intraocular lens U LEFT WRIST SURGERY U 512475503 SNOMED CT Arthroscopy of knee U Results No data in the system Social History Code Code System Social History Observation Description Dates Observed 482990185 SNOMED CT Current Smoking Status Never smoker UNK AdministrativeGender Sex Assigned At Unknown Vital Signs No data in the system Goals Section No data in the system Health Concerns No data in the systemEncounter Diagnosis Date Code Code System Diagnosis Status Z47.1 ICD10 AFTERCARE FOLLOW JNT REPLACE SURG Active Advance Directives *RHIO - CONSENT IS YES Directive Type Effective Date Skate Maker Notes Supporting Document Name Address Phone No Directive Type 11/07/2016 11:53:59 Not Specified Not Specified Not Specified None No specified AM PT STATES NO ADVANCE DIRECTIVES Directive Type Effective Date Skate Maker Notes Supporting Document Name Address Phone No Directive Type 06/26/2017 9:15:00 Not Specified Not Specified Not Specified None No specified AM Family History No data in the system Functional Status No data in the system Immunizations Vaccine Code Code System Vaccine Name Date Status FLU VACCINE 2015 Completed PNEUMONIA VACCINE 2016 Completed Medical Equipment Implants Implanted Date Implant Site FREDY 08/05/2001 iol right eye 08/05/2001 iol left eye Mental Status No data in the system Assessment and Plan Assessments No data in the systemPlan Of Treatment No data in the systemPending Tests No data in the system Hospital Discharge Instructions No data in the system Reason for Visit Reason for Visit new pt eval
[2018-08-15] MEDS ORDERED: Dexamethasone IV* 4 MG/ML 1 ML (4 MG) ONE (12:42)
[2018-08-15] MEDS ORDERED: Famotidine IV* 10 MG/ML 2 ML (20 mg) ONE (12:42)
[2018-08-15] MEDS ORDERED: celeCOXIB CAP* 100 MG ONE (12:42)
[2018-08-15] MEDS ORDERED: Gabapentin CAP(*) 300 MG ONE (12:43)
[2018-08-15] MEDS ORDERED: ceFAZolin 2 GM PREMIX in ORs 2 GM/50 ML BAG IVPB ONE (12:43)
[2018-08-15] MEDS ORDERED: Midazolam* 1 MG/ML 5 ML VIAL (5 MG) ONE (14:08)
[2018-08-15] MEDS ORDERED: fentaNYL* 50 MCG/ML 2 ML VIAL (100 MCG VIAL) ONE (14:09)
[2018-08-15] MEDS ORDERED: ROPIVACAINE 5 MG/ML 30 ML BTL (0.5%) ONE (14:13)
[2018-08-15] MEDS ORDERED: Bupivacaine 0.5% SDV PF* 30ML VIAL ONE ×2 (14:45→16:01)
[2018-08-15] MEDS ORDERED: Lidocaine 2% PF * 5 ML VIAL ONE (15:09)
[2018-08-15] MEDS ORDERED: Propofol* 10 MG/ML 20 ML BTL IV PUSH ONE ×2 (15:09→16:53)
[2018-08-15] MEDS ORDERED: HYDROcodone/ACETAMIN 5-325 MG* 1 TAB PO PRN (15:51)
[2018-08-15] MEDS ORDERED: fentaNYL* 50 MCG/ML 2 ML VIAL (100 MCG VIAL) IV PRN (15:51)
[2018-08-15] MEDS ORDERED: oxyCODONE/Acetamin 5/325 MG* TAB PO PRN ×2 (15:51→17:44)
[2018-08-15] MEDS ORDERED: Naloxone* 0.4 MG/ML 1 ML VIAL IV PRN (15:51)
[2018-08-15] MEDS ORDERED: DiMENhydriNATE IV* 50 MG/ML VIAL IV PUSH PRN (15:51)
[2018-08-15] MEDS ORDERED: Ondansetron INJ* 2 MG/ML VIAL IV PRN (17:44)
[2018-08-15] MEDS ORDERED: Polyethylene Glycol 3350* 17 GM PACKET PO PRN (17:44)
[2018-08-15] MEDS ORDERED: Bisacodyl SUPP* 10 MG SUPP PR PRN (17:44)
[2018-08-15] MEDS ORDERED: diPHENhydraMINE IV* 50 MG/ML 1 ml VIAL (BENADRYL) IV PRN (17:44)
[2018-08-15] MEDS ORDERED: Morphine INJ* 2 MG/ML 1 ML SYRINGE (TWO MG - NEW SYRINGE VERSION) IV PRN (17:44)
[2018-08-15] MEDS ORDERED: oxyCODONE TAB* 5 MG TAB PO PRN (17:44)
[2018-08-15] MEDS ORDERED: Magnesium Hydroxide LIQ* 30 ML UDC PO PRN (17:44)
[2018-08-15] MEDS ORDERED: Warfarin TAB(*) 6 MG PO ONE (18:00)
[2018-08-15] MEDS: PTO:Brinzolamid/Brimonidin OPH(NF) 1 DROP BTL RIGHT EYE SCH (22:45)
[2018-08-15] MEDS: PTO:Latanoprost 0.005%* 2.5 ml BTL BOTH EYES SCH (22:45)
[2018-08-15] MEDS: Docusate CAP* 100 MG PO SCH (23:00)
[2018-08-15] MEDS: Magnesium Hydroxide LIQ* 30 ML UDC PO SCH (23:01)
[2018-08-15] MEDS: ceFAZolin 1 GM in Dextrose (*) 1 GM/50 ML BAG IVPB SCH (23:23)
[2018-08-16] MEDS: Acetaminophen TAB* 325 MG PO PRN ×2 (01:58→11:32)
[2018-08-16] MEDS: ceFAZolin 1 GM in Dextrose (*) 1 GM/50 ML BAG IVPB SCH ×2 (06:23→15:10)
[2018-08-16 07:01] LABS: Hematocrit 31 % (42-52); Hemoglobin 10.1 g/dl (14.0-18.0); Platelet Count 250 10^3/ul (150-450)
[2018-08-16 07:03] LABS: INR 1.08 (0.77-1.02)
[2018-08-16 07:23] LABS: EGFR Non-African American 90.4 (>60)
--- NOTE | 2018-08-16 07:50 | RAD ---
HISTORY: S/P LTKA COMPARISONS: March 22, 2018 VIEWS: 2 , Frontal and lateral views of the left knee FINDINGS: BONE DENSITY: There is diffuse osteopenia. BONES: The patient is status post left knee arthroplasty. There is no hardware failure or osteolysis. JOINTS: The patient is status post left knee arthroplasty ALIGNMENT: There is no dislocation. SOFT TISSUES: Unremarkable. OTHER FINDINGS: None. IMPRESSION: STATUS POST LEFT KNEE ARTHROPLASTY. OSTEOPENIA.
[2018-08-16] MEDS: PTO:Brinzolamid/Brimonidin OPH(NF) 1 DROP BTL RIGHT EYE SCH ×2 (08:28→20:31)
[2018-08-16] MEDS: Magnesium Hydroxide LIQ* 30 ML UDC PO SCH ×2 (08:30→20:11)
[2018-08-16] MEDS: Vitamin THERAPEUTIC TAB PO SCH (08:30)
[2018-08-16] MEDS: Docusate CAP* 100 MG PO SCH ×2 (08:30→20:12)
--- NOTE | 2018-08-16 08:51 | PN ---
Progress Note - Progress Note Date of Service: 08/16/18 SOAP: Subjective: 78 y/o male s/p L TKA by DR. Sinha 08/15/2018. Overall feeling well, some difficulty working with PT in the AM, VSS, afebrile overnight. Objective: General- Well appearing, NAD, AO, resting comfortably in bed MSK- LE- DF/PF weak on L leg, patient states baseline for him, PT 2+, negative homans sign, surgical dressing c/d/i, no induration noted. Vital Signs Temp 97.5 F 08/16/18 07:20 Pulse 73 08/16/18 07:20 Resp 18 08/16/18 07:35 BP 135/70 08/16/18 07:20 Pulse Ox 99 08/16/18 07:20 Intake & Output 08/15/18 08/16/18 08/16/18 18:59 06:59 18:59 Intake Total 1600 652 Output Total 1300 550 0 Balance 300 102 0 Weight 80.739 kg Intake: IV Fluids 1600 LR 1600 IVPB 52 ABX - CEFAZOLIN 52 Oral 600 Output: Urine 0 Macias 1300 550 Other: Estimated Blood Loss <50 Comment Assessment: Stable 78 y/o male s/p L TKA by DR. Sinha 08/15/2018. Plan: - DVT prophylaxis- lovenox, coumadin - Continue PT/ OT - Follow up with Dr. Sinha within 10-14 days - H&H - stable - post-op IV ABX - running - possible D/ C home tomorrow with services Acetaminophen (Tylenol Tab*) 650 mg PO Q8H PRN PRN Reason: PAIN OR TEMPERATURE Last Admin: 08/16/18 01:58 Dose: 650 mg Bisacodyl (Dulcolax Supp*) 10 mg AL DAILY PRN PRN Reason: constipation Brinzolamide/Brimonidine Tartrate (Simbrinza Oph.Susp(Nf)) 1 drop RIGHT EYE BID JORGE A Last Admin: 08/16/18 08:28 Dose: Not Given Cyclobenzaprine HCl (Flexeril Tab*) 5 mg PO TID PRN PRN Reason: SPASMS Diphenhydramine HCl (Benadryl Iv*) 25 mg IV Q6H PRN PRN Reason: itching Docusate Sodium (Colace Cap*) 100 mg PO BID [facility] Last Admin: 08/16/18 08:30 Dose: Not Given Enoxaparin Sodium (Lovenox(*)) 40 mg SUBCUT Q24H [facility] Cefazolin Sodium/Dextrose (Kefzol 1 Gm In Dextrose Duplex (*)) 1 gm in 50 mls @ 200 mls/hr IVPB Q8H [facility] Stop: 08/16/18 15:14 Last Admin: 08/16/18 06:23 Dose: 200 mls/hr Lactated Ringer's (Lactated Ringers 1000 Ml Bag*) 1,000 mls @ 75 mls/hr IV PER RATE [facility] Last Admin: 08/15/18 22:08 Dose: 75 mls/hr Latanoprost (Xalatan 0.005%*) 1 drop BOTH EYES QPM [facility] Last Admin: 08/15/18 22:45 Dose: Not Given Magnesium Hydroxide (Milk Of Magnesia Liq*) 30 ml PO BID [facility] Last Admin: 08/16/18 08:30 Dose: Not Given Magnesium Hydroxide (Milk Of Magnesia Liq*) 30 ml PO Q6H PRN PRN Reason: constipation Morphine Sulfate (Morphine Inj ((Syringe))*) 2 mg IV Q2H PRN PRN Reason: PAIN - SEVERE Multivitamins (Theragran Tab*) 1 tab PO DAILY [facility] Last Admin: 08/16/18 08:30 Dose: 1 tab Ondansetron HCl (Zofran Inj*) 4 mg IV Q6H PRN PRN Reason: nausea Oxycodone HCl (Roxycodone Tab*) 10 mg PO Q4H PRN PRN Reason: PAIN - SEVERE Oxycodone/Acetaminophen (Percocet 5/325 Tab*) 1 tab PO Q4H PRN PRN Reason: PAIN Oxycodone/Acetaminophen (Percocet 5/325 Tab*) 2 tab PO Q4H PRN PRN Reason: PAIN Polyethylene Glycol/Electrolytes (Miralax*) 17 gm PO DAILY PRN PRN Reason: Constipation
[2018-08-16] MEDS: Enoxaparin(*) 40 MG/0.4 ML SYR SUBCUT SCH (11:32)
[2018-08-16] MEDS: Cyclobenzaprine TAB* 10 MG PO PRN ×2 (12:43→20:29)
[2018-08-16] MEDS: oxyCODONE/Acetamin 5/325 MG* TAB PO PRN (15:14)
--- NOTE | 2018-08-16 15:47 | OP ---
OPERATIVE REPORT: DATE OF OPERATION: 08/15/18 DATE OF : 36 ATTENDING SURGEON: Sirena Sinha MD FORESTRY LABORER: CICI Salinas Radha Jeffrey did help throughout the procedure with preparation of the leg, wound retraction, manipulat ion of the knee and wound closure. ANESTHESIOLOGIST: Dr. Casey. ANESTHESIA: Spinal. PRE-OP DIAGNOSIS: Severe end-stage degenerative osteoarthritis of the left knee joint. POST-OP DIAGNOSIS: Severe end-stage degenerative osteoarthritis of the left knee joint. OPERATIVE PROCEDURE: Left total knee arthroplasty. TOURNIQUET TIME: 50 minutes. COMPLICATIONS: None. ESTIMATED BLOOD LOSS: 300 cc. SPECIMEN: Bone and cartilage from the left knee joint sent to Pathology. HARDWARE USED: This is cemented [employer]hew total knee arthroplasty hardware. Two packages of S implex bone cement. For the femur, a left size 8 posterior stabilized Legion femoral component. For the tibia, a size 7 left Yanet II tibial baseplate. For the insert, a 9-mm posterior stabilized a rticular insert size 7/8 and for the patella, a 38-mm, 3-peg all-poly patella. BRIEF HISTORY AND INDICATIONS: Mr. Duque is an 78-year-old gentleman with years of increasingl y severe left knee pain. He failed conservative treatment with antiinflammatories, physical therapy, and intraarticular injections. Due to continued pain and decreased quality of life, he elected to u ndergo left total knee arthroplasty. Informed consent was obtained from the patient. He understood the risks of surgery included but were not limited to bleeding, infection, damage to nearby structure s, continued pain, need for further surgery, intraoperative fracture, nerve palsy, hardware failure o r loosening, knee stiffness, loss of motion, stroke, heart attack, blood clot, and . He wished to proceed. INTRAOPERATIVE FINDINGS: Intraoperatively, the patient was noted to have severe end-stage osteoarthr itis. He had valgus deformity of 12 degrees. Flexion contracture of 20 degrees. Tricompartmental c omplete loss of cartilage with subchondral sclerosis and osteophyte formation. DESCRIPTION OF PROCEDURE: Mr. Duque was identified in the preanesthesia unit. His left lower extremity was marked as the correct operative side. Informed consent was signed and placed in the art. The patient was taken to the operating room and placed under spinal anesthesia. A Macias cathet er was placed. Tourniquet was placed on the left thigh. Left lower extremity was prepped and draped in the usual sterile fashion. Preop time-out was made to correctly identify the patient's side and site. Appropriate perioperative antibiotics were given within 1 hour of incision. Tourniquet was inflated and total tourniquet time for this procedure was 50 minutes. A midline incis ion was made with a 10-blade. A new 10 blade was used to make a standard medial parapatellar arthrot ad. The patella was subluxed laterally. Electrocautery was used to subperiosteally elevate the sof t tissue off the superomedial tibia to the mid sagittal plane. The knee was flexed up. The anterior horn of the lateral meniscus was released. ACL was not present. A drill was used to enter the dist al femur. Intramedullary distal femoral cutting guide was pinned on the distal femur. Oscillating s aw was used to make the distal femoral cut. Next, the external rotation guide was pinned on the dist al femur. Distal femur was sized to a size 8. Size 8 multi-cutting jig was pinned on the distal femu r. Oscillating saw was used to make the appropriate four chamfer cuts. The PCL was completely releas ed. Extramedullary tibial cutting guide was pinned on the proximal tibia. Oscillating saw was used to make the proximal tibial cut perpendicular to the mechanical axis of the tibia. The bone was care fully removed. The knee was brought out into full extension. A spacer block had good fit with the knee in full exte nsion. Medial and lateral ligaments were well balanced. Flexion and extension gaps were well balanc ed. The knee was flexed up. Lamina paper twister was placed both medially and laterally. Any remaining meniscus was carefully removed using electrocautery. A curved osteotome was used to remove any post erior osteophytes. Tibial tray and drop isai were placed and once again confirmed a satisfactory tibi al cut. A size 8 left femoral trial was impacted onto the distal femur and had excellent fit and sta bility. The box for the posterior stabilized implant was prepared using a reamer and box-cut osteoto me. A size 7 tibial tray trial with a 9-mm insert trial was placed and the knee was taken through a range of motion. The knee had full extension to 130 degrees of flexion. There was satisfactory dennison llofemoral tracking. The patella was everted. 9 mm of patellar bone and cartilage was carefully rem rosalinda using an oscillating saw. The patella was sized to a size 38. Three peg holes were drilled thr ough the size 38 guide. A 38 trial patella was placed and the knee was taken through a range of fidel on. There was satisfactory patellofemoral tracking. All trials were carefully removed. The tibia w as subluxed anteriorly and sized to a size 7. Proximal tibia was prepared using a size 7 keel punch. All bony cut surfaces were copiously irrigated with sterile saline and dried. Final implants were peter ented into place starting with the tibia followed by the femur and last the patella. A 9-mm insert t rial was placed and the knee was brought out into full extension. Tourniquet was turned down at 50 m inutes. The knee was copiously irrigated with sterile saline. Electrocautery was used to obtain met iculous hemostasis. Once the cement had fully cured, the insert trial was removed. Any excess cemen t was removed from around the capsule and hardware. A 9-mm posterior stabilized articular insert 7/8 was chosen as a final insert. This was locked into position on the tibial tray. Stability of the ins ert was checked and rechecked and noted to be stable. The knee was once again copiously irrigated with sterile saline. The extensor mechanism was closed u sing interrupted #1 Vicryl. The rest of the incision was closed in a layered fashion using 0 and 2-0 Vicryl. Skin was closed using running 3-0 nylon suture. Sterile Xeroform, Adaptic, and 4x4s were u sed to cover the incision. Krishan wrap and cold pack were placed over this. The patient's anesthesia w as reversed without difficulty. He was taken to the PACU in stable condition. Intended weightbearing will be weightbearing as tolerated. Intended DVT prophylaxis will be Coumadin with a Lovenox bridge . [id number]/[facility] #: [id number]
[2018-08-16] MEDS: PTO:Latanoprost 0.005%* 2.5 ml BTL BOTH EYES SCH (17:49)
[2018-08-17] MEDS: oxyCODONE/Acetamin 5/325 MG* TAB PO PRN ×3 (03:26→18:41)
[2018-08-17 05:32] LABS: Hematocrit 26 % (42-52); Hemoglobin 8.8 g/dl (14.0-18.0); Mean Platelet Volume 7.3 um3 (7.4-10.4); Platelet Count 202 10^3/ul (150-450)
[2018-08-17 05:36] LABS: INR 1.39 (0.77-1.02)
[2018-08-17] MEDS: Magnesium Hydroxide LIQ* 30 ML UDC PO SCH ×2 (08:48→20:02)
[2018-08-17] MEDS: Vitamin THERAPEUTIC TAB PO SCH (08:49)
[2018-08-17] MEDS: Docusate CAP* 100 MG PO SCH ×2 (08:49→20:01)
[2018-08-17] MEDS: PTO:Brinzolamid/Brimonidin OPH(NF) 1 DROP BTL RIGHT EYE SCH ×2 (08:49→20:02)
[2018-08-17] MEDS: Enoxaparin(*) 40 MG/0.4 ML SYR SUBCUT SCH (11:56)
[2018-08-17] MEDS: Acetaminophen TAB* 325 MG PO PRN (12:02)
[2018-08-17] MEDS: Tamsulosin CAP* 0.4 MG PO SCH (12:35)
--- NOTE | 2018-08-17 12:55 | PN ---
Progress Note - Progress Note Date of Service: 08/17/18 SOAP: Subjective: Pt is doing well. Pain is controlled. Unable to urinate on own. Needed to be straight cathed. Denies abdominal pain. Denies F/C, CP/SOB Objective: PE- 78 y/o WDWN M, NAD LLE- dressing changed, inc c/d/i, calf soft NT, +DF/PF ankle, SILT distally, +2 DP pulse Vital Signs Temp Pulse Resp BP Pulse Ox 98.0 F 81 16 134/50 100 08/17/18 11:29 08/17/18 11:29 08/17/18 11:29 08/17/18 11:29 08/17/18 11:29 Laboratory Results - last 24 hr 08/17/18 08/17/18 05:04 05:04 Hgb 8.8 L Hct 26 L Plt Count 202 MPV 7.3 L INR (Anticoag Therapy) 1.39 H Assessment: Stable 78 y/o male POD 2 s/p L TKA by DR. Sinha 08/15/2018. Plan: - DVT prophylaxis- lovenox, coumadin - 8 mg coumadin tonight - Continue PT/ OT - Cont percocet for pain - possible D/ C home tomorrow with services vs SNF Sunday
[2018-08-17] MEDS ORDERED: Warfarin TAB(*) 4 MG PO ONE (17:00)
[2018-08-17] MEDS: PTO:Latanoprost 0.005%* 2.5 ml BTL BOTH EYES SCH (17:11)
[2018-08-18] MEDS: Acetaminophen TAB* 325 MG PO PRN ×3 (05:13→17:49)
[2018-08-18 05:52] LABS: Hematocrit 26 % (42-52); Hemoglobin 8.5 g/dl (14.0-18.0); Mean Platelet Volume 7.4 um3 (7.4-10.4); Platelet Count 208 10^3/ul (150-450)
[2018-08-18 05:57] LABS: INR 1.4 (0.77-1.02)
[2018-08-18] MEDS: Magnesium Hydroxide LIQ* 30 ML UDC PO SCH ×2 (08:20→20:38)
[2018-08-18] MEDS: Tamsulosin CAP* 0.4 MG PO SCH (08:27)
[2018-08-18] MEDS: Vitamin THERAPEUTIC TAB PO SCH (08:27)
[2018-08-18] MEDS: PTO:Brinzolamid/Brimonidin OPH(NF) 1 DROP BTL RIGHT EYE SCH ×2 (08:27→20:38)
[2018-08-18] MEDS: Docusate CAP* 100 MG PO SCH ×2 (08:27→20:28)
--- NOTE | 2018-08-18 11:22 | PN ---
Progress Note - Progress Note Date of Service: 08/18/18 SOAP: Subjective: Pt is doing well. Pain controlled. Slowly improving with PT. Denies F/C,CP/SOB, calf pain or lightheadedness Objective: PE- 78 y/o WDWN M, NAD LLE- dressing c/d/i, calf soft NT, +DF/PF ankle, SILT distally, +2 DP pulse Vital Signs Temp Pulse Resp BP Pulse Ox 97.3 F 97 20 144/68 98 08/18/18 07:19 08/18/18 07:19 08/18/18 08:00 08/18/18 08:26 08/18/18 07:19 Laboratory Results - last 24 hr 08/18/18 08/18/18 05:25 05:25 Hgb 8.5 L Hct 26 L Plt Count 208 MPV 7.4 INR (Anticoag Therapy) 1.40 H Assessment: Stable 78 y/o male POD 3 s/p L TKA by DR. Sinha 08/15/2018. Plan: - DVT prophylaxis- lovenox, coumadin - 10 mg coumadin tonight -cont monitor H&H - Continue PT/ OT - Cont percocet for pain - Pt needs assist to stand and is behind with PT. Possible DC to SNF tomorrow
[2018-08-18] MEDS: Enoxaparin(*) 40 MG/0.4 ML SYR SUBCUT SCH (12:13)
[2018-08-18] MEDS ORDERED: Warfarin TAB(*) 10 MG PO ONE (17:00)
[2018-08-18] MEDS: PTO:Latanoprost 0.005%* 2.5 ml BTL BOTH EYES SCH (17:50)
[2018-08-19] MEDS: Acetaminophen TAB* 325 MG PO PRN ×3 (03:27→13:23)
[2018-08-19 05:57] LABS: Hematocrit 23 % (42-52); Hemoglobin 7.8 g/dl (14.0-18.0); Mean Platelet Volume 7.3 um3 (7.4-10.4); Platelet Count 230 10^3/ul (150-450)
[2018-08-19 06:04] LABS: INR 1.79 (0.77-1.02)
[2018-08-19] MEDS: PTO:Brinzolamid/Brimonidin OPH(NF) 1 DROP BTL RIGHT EYE SCH (09:29)
[2018-08-19] MEDS: Vitamin THERAPEUTIC TAB PO SCH (09:31)
[2018-08-19] MEDS: Tamsulosin CAP* 0.4 MG PO SCH (09:31)
[2018-08-19] MEDS: Magnesium Hydroxide LIQ* 30 ML UDC PO SCH (09:31)
[2018-08-19] MEDS: Docusate CAP* 100 MG PO SCH (09:31)
--- NOTE | 2018-08-19 10:07 | PN ---
Progress Note - Progress Note Date of Service: 08/19/18 SOAP: Subjective: [] Patient seen and examined OOB in chair. He is having no left knee pain at rest, pain increases with activity though remains tolerable. Denies chest pain, shortness of breath, dizziness, nausea, lightheadedness. Objective: []General: Well appearing, NAD LLE: Left knee incision is clean, dry and intact with well approximated edges and no discharge. The thigh is soft,Sensation intact distally, capillary refill less than two seconds distally. Able to wiggle toes and DF/PF intact though weak which patient states to be baseline from before surgery. Calves are supple and nontender without erythema or palpable cords. The left calf and foot are mildly edematous though remain compressible and nontender. Assessment: []POD 4 s/p L TKA by DR. Sinha 08/15/2018. Acute bloodloss enamia Plan: - Lovenox, Coumadin 6 mg today - H&H continues to trend down though patient remains asymptomatic. Will need to monitor for both symptoms and worsening H&H. Continue B12 and iron supplementation - Continue PT/ OT - WBAT with assist - Bed is not yet available at [facility], awaiting rehab placement Vital Signs Temp 98.0 F 08/19/18 07:12 Pulse 90 08/19/18 07:12 Resp 16 08/19/18 07:21 BP 131/65 08/19/18 07:12 Pulse Ox 97 08/19/18 07:12 Intake & Output 08/18/18 08/19/18 08/19/18 18:59 06:59 18:59 Intake Total 600 730 600 Output Total 600 850 Balance 0 -120 600 Intake: Oral 600 730 600 Output: Macias 600 850 Laboratory Last Values Hgb 7.8 g/dl (14.0-18.0) L 08/19/18 05:18 Hct 23 % (42-52) L 08/19/18 05:18 Plt Count 230 10^3/ul (150-450) 08/19/18 05:18 MPV 7.3 um3 (7.4-10.4) L 08/19/18 05:18 INR (Anticoag Therapy) 1.79 (0.77-1.02) H 08/19/18 05:18 Sodium 139 mmol/L (135-145) 10/12/18 06:48 Potassium 3.9 mmol/L (3.5-5.0) 08/16/18 06:48 Chloride 107 mmol/L (101-111) 08/16/18 06:48 Carbon Dioxide 26 mmol/L (22-32) 08/16/18 06:48 Anion Gap 6 mmol/L (2-11) 08/16/18 06:48 BUN 18 mg/dL (6-24) 08/16/18 06:48 Creatinine 0.82 mg/dL (0.67-1.17) 08/16/18 06:48 Est GFR ( Amer) 109.4 (>60) 08/16/18 06:48 Est GFR (Non-Af Amer) 90.4 (>60) 08/16/18 06:48 BUN/Creatinine Ratio 22.0 (8-20) H 08/16/18 06:48 Glucose 163 mg/dL (70-100) H 08/16/18 06:48 Calcium 8.6 mg/dL (8.6-10.3) 08/16/18 06:48
[2018-08-19 13:03] VITALS: BP 150/62
[2018-08-19] MEDS: Enoxaparin(*) 40 MG/0.4 ML SYR SUBCUT SCH (13:17)
--- NOTE | 2018-08-19 15:14 | DS ---
AMENDED REPORT NOW INCLUDES COSIGNER DESIGNATION DATE OF ADMISSION: 08/15/2018 DATE OF DISCHARGE: 08/19/2018 PROVIDER: Dr. Sirena Sinha * (dictated by CICI Mane). DATE OF OPERATION: 08/15/2018 PREOP DIAGNOSIS: Severe end stage degenerative osteoarthritis of the left knee joint. OPERATIVE PROCEDURE: Left total knee arthroplasty. HISTORY: Mr. Duque is an 78-year-old male with years of increasingly severe left knee pain. He underwent a left total knee arthroplasty without complication. He elected to undergo a left total knee arthroplasty after failing conservative management. HOSPITAL COURSE: The patient was admitted to [facility] on 2017. He underwent a left total knee arthroplasty without complication. He recovered briefly in the PACU and was transferred to Short Stay Surgical Unit in stable condition. On postop day 1, he was well appearing in no acute distress. Postop day 2 dressing was changed, incision was clean, dry and intact. Calf normal, soft and nontender. Dorsiflexion, plantar flexion intact. Sensation intact to light touch distally. 2+ dorsalis pedis pulse. Postop day 3 patient is well appearing , no acute distress. Postop day 4 again well appearing, no acute distress. Left knee incision clean, dry and intact with well approximated wound edges, no discharge, calf soft, sensation intact distally. Capillary refill less than 2 seconds distally. Able to wiggle his toes. Dorsiflexion and plantar flexion intact. sensation intact. Calf supple and nontender without erythema, edema or palpable cords. Left calf and foot mildly edematous though remain compressible and nontender. Vital signs: Temperature 98.0, pulse 90, respiratory rate 16, blood pressure 131/65, pulse ox 97. Hemoglobin 7.8, hematocrit 23, INR 1.79. Patient hemoglobin and hematocrit have been trending down, though he has been asymptomatic. He has not complained of any chest pain, shortness of breath, lightheadedness, dizziness or nausea. DISCHARGE MEDICATIONS: 1. Latanoprost 0.005% one drop both eyes every p.m. 2. Simbrinza ophthalmic suspension 1 ophthalmic drop in the right eye b.i.d. 3. Vitamin B12 1000 micrograms p.o. every other day. 4. Ferrous gluconate 150 mg p.o. q.a.m. 5. Acetaminophen 1000 mg p.o. b.i.d. p.r.n. 6. Stool softener 2 tabs p.o. q.p.m. p.r.n. 7. Acetaminophen 650 mg p.o. every 4 hours p.r.n. 8. Docusate 100 mg p.o. b.i.d. p.r.n. 9. Percocet 5/325 one to two tabs every 4 hours as needed for pain, max daily dose of 10. 10. Warfarin 2 mg tablet 0-5 tabs daily dose depends on INR. DISCHARGE PLAN: The patient will be weightbearing as tolerated. Discharge disposition will be to [facility]. Wound Care: Okay to shower after postop day 3. Do not submerge the wound. Diet is regular diet. Continue physical therapy and occupational therapy. Exercises as shown. Nursing to continue wound checks, as well as INR Sunday through . H&H needs to be done on 08/20/2018 and as needed thereafter to recheck for worsening anemia. Coumadin dosing last INR on 08/19/2018 was 1.79. Dosing 08/19 is 6 mg; 08/20 is 4 mg; 08/21 is 4 mg. recheck INR on 08/22 for further dosing instruction. Pain control Percocet 5/325 one to two tabs by mouth every 4-6 hours as needed for pain, max of 10 tabs per day. Antibiotics required prior to any dental work. Follow-up with Dr. Sinha within 10- 14 days postoperatively, please call office for an appointment. Please call our office with any questions. He will be discharged to [facility] at this time. CICI ALDRIDGE [id number]/[facility] #: [id number] YASIR
[2018-08-19] MEDS ORDERED: Warfarin TAB(*) 6 MG PO SCH (17:00)
== END 2018-08-19 14:55 | DRG 470 ==
LOC: AA 12:10 → SSU 21:25
PROVIDERS: ADMIT Orthopaedic Surgery Adult Reconstructive Orthopaedic Surgery; ATTEND Orthopaedic Surgery Adult Reconstructive Orthopaedic Surgery
PROC: 0SRD0J9 Replacement of Left Knee Joint with Synthetic Substitute, Cemented, Open Approach (ICD-10-PCS; principal; 2018-08-15 15:00)
DX: M17.12 Unilateral primary osteoarthritis, left knee (principal); D62 Acute posthemorrhagic anemia; Z96.651 Presence of right artificial knee joint; M48.00 Spinal stenosis, site unspecified; J30.9 Allergic rhinitis, unspecified; M21.062 Valgus deformity, not elsewhere classified, left knee; M25.762 Osteophyte, left knee; R33.9 Retention of urine, unspecified; Z82.49 Family history of ischemic heart disease and other diseases of the circulatory system; Z80.3 Family history of malignant neoplasm of breast; Z86.010 Personal history of colon polyps; Z98.42 Cataract extraction status, left eye; Z98.41 Cataract extraction status, right eye; Z82.0 Family history of epilepsy and other diseases of the nervous system; Z72.89 Other problems related to lifestyle; Z79.01 Long term (current) use of anticoagulants
CPT/HCPCS: 36415; 80048; 85014; 85018; 85049; 85610; 88305; 88311; A9270-GY; C1776; G8978-GP-CK; G8978-GP-CL; G8979-GP-CI; G8979-GP-CJ; G8987-GO-CK; G8988-GO-CI; J0690; J1100; J1650; J2250; J2704; J2795; J3010

== ENCOUNTER 2019-08-26 11:03 | Inpatient (IN) | payer MEDICARE ==
--- NOTE | 2019-08-25 08:24 | HP ---
AMENDED REPORT NOW INCLUDES DESIGNATED COSIGNER - ESIGNED BEFORE ADJUSTMENTS HISTORY AND PHYSICAL: DATE OF ADMISSION/SURGERY: 08/26/19 PROVIDER: Dr. Sirena Sinha.* (DICTATED BY CICI MG) HISTORY OF PRESENT ILLNESS: Mr. Duque is an 79-year-old gentleman who has an increased left hip pain over the last 2 years. He has increased stiffness. Bending off the hip while walking even a half a block, gives him increased pain in the groin and lateral. He has failed physical therapy, antiinflammatories, and pain medication. He would like to proceed with left total hip arthroplasty. PAST MEDICAL HISTORY: Anemia, osteoarthritis. PAST SURGICAL HISTORY: Bilateral knee arthroscopy, left total knee arthroplasty , left carpal tunnel release, hernia repair. MEDICATIONS: 1. Latanoprost 0.005%. 2. Simbrinza. 3. Iron 325. 4. Vitamin B12 1000 mcg. 5. Acetaminophen p.r.n. ALLERGIES: No known drug allergies. SOCIAL HISTORY: The patient lives alone. He is retired. No tobacco or recreational drug use. Minimal alcohol use. Normal ambulation with a rolling walker at this point because of left hip pain. Right hand dominant. REVIEW OF SYSTEMS: General: The patient denies any fevers, chills, or night sweats. No known anesthesia problems. HEENT: The patient denies any headaches or lightheadedness. Cardiothoracic: The patient denies any chest pain, heart palpitations or edema. Pulmonary: The patient denies any shortness of breath with exertion or chronic cough. GI: The patient denies any nausea, vomiting, diarrhea, or constipation. : The patient denies any nocturia, urinary frequency, or urgency. MSK: Chronic intermittent back pain. Neuro: The patient denies any paresthesias, numbness, or seizure. Integument: The patient denies any abrasions, lesions, rashes, lumps, or open sores. PHYSICAL EXAMINATION GENERAL: The patient is alert and oriented x3, appropriate mood and affect. Appropriate dress and hygiene. No acute distress. HEENT: Normocephalic atraumatic. Hearting and vision are grossly intact. CARDIO: Regular rate and rhythm. Normal S1 and S2. No appreciable S3 or S4. No murmurs, rubs or gallops. PULMONARY: Lungs are clear to auscultation bilaterally with no wheezes, rales, or rhonchi. MSK: Left lower extremity: Inspection of the left hip reveals no erythema or ecchymosis. Skin is warm, dry, and intact. Range of motion of the hip is 70 degrees of flexion with severe pain. 0 degrees of rotation of the hip because of severe pain. He has a footdrop at baseline. He reports full sensation intact to light touch and has a 2+ dorsalis pedis pulse. IMPRESSION: Left hip osteoarthritis. PLAN: 1. To the OR for a left total hip arthroplasty to be performed by Dr. Sirena Sinha on 08/26/19. 2. The risks and complications of surgery were reviewed with the patient and a signed consent was obtained and placed in the patient's chart. 3. Followup will be in 10 to 14 days for suture removal. CICI MG [id number]/[facility] #: [id number] YASIR
[~2019-08-26 11:03] MED LIST changes: -Buffered Lidocaine 0.9% SYRIN* 5 ML/SYR SYRINGE INTRADERM ONE; +Buffered Lidocaine 1% SYRIN* 1 ML/SYRINGE INTRADERM ONE; -Dexamethasone IV* 4 MG/ML 1 ML (4 MG) IV SLOW PU ONE; -Famotidine IV* 10 MG/ML 2 ML (20 mg) IV ONE; -Gabapentin CAP(*) 300 MG PO ONE; +Lactated Ringers 1000 ML Bag* 1,000 ML IV SCH; -celeCOXIB CAP* 200 MG PO ONE
[2019-08-26] MEDS ORDERED: ceFAZolin 2 GM PREMIX in ORs 2 GM/50 ML BAG ONE (11:27)
[2019-08-26] MEDS ORDERED: EPHEDrine (Pressors)* 50 MG/ML VIAL ONE (11:42)
[2019-08-26] MEDS ORDERED: ROPIVACAINE 5 MG/ML 30 ML BTL (0.5%) ONE ×2 (11:42→13:49)
[2019-08-26] MEDS ORDERED: Lidocaine 2% PF * 5 ML VIAL ONE ×2 (11:43→14:19)
[2019-08-26] MEDS ORDERED: Propofol* 10 MG/ML 20 ML BTL ONE (11:43)
[2019-08-26] MEDS ORDERED: Midazolam* 1 MG/ML 2 ML VIAL (2 MG) ONE (11:43)
[2019-08-26] MEDS ORDERED: fentaNYL* 50 MCG/ML 2 ML VIAL (100 MCG VIAL) ONE (13:54)
[2019-08-26] MEDS ORDERED: Propofol* 500 MG/50 ML BTL ONE (14:35)
[2019-08-26] MEDS ORDERED: KETAMINE HCL* 50 MG/ML 10 ML VIAL ONE (14:36)
[2019-08-26] MEDS ORDERED: Bupivacaine 0.5% SDV PF* 30ML VIAL ONE ×2 (15:06)
[2019-08-26] MEDS ORDERED: Ondansetron INJ* 2 MG/ML VIAL IV PRN ×2 (16:00→17:15)
[2019-08-26] MEDS ORDERED: Naloxone* 0.4 MG/ML 1 ML VIAL IV PRN (16:00)
[2019-08-26] MEDS ORDERED: oxyCODONE TAB* 5 MG TAB PO PRN (16:00)
[2019-08-26] MEDS ORDERED: fentaNYL* 50 MCG/ML 2 ML VIAL (100 MCG VIAL) IV PRN (16:00)
[2019-08-26] MEDS ORDERED: Atropine 1MG/ML INJ* 1 ML VIAL ONE (16:35)
[2019-08-26] MEDS ORDERED: diPHENhydraMINE IV* 50 MG/ML 1 ml VIAL (BENADRYL) IV PRN (17:15)
[2019-08-26] MEDS ORDERED: diPHENhydraMINE PO* 25 MG PO PRN (17:15)
[2019-08-26] MEDS ORDERED: Ondansetron ODT TAB* 4 MG PO PRN (17:15)
[2019-08-26] MEDS ORDERED: oxyCODONE/Acetamin 5/325 MG* TAB PO PRN (17:15)
[2019-08-26] MEDS ORDERED: Morphine INJ* 2 MG/ML 1 ML SYRINGE (TWO MG - NEW SYRINGE VERSION) IV PRN (17:15)
[2019-08-26] MEDS ORDERED: Magnesium Hydroxide LIQ* 30 ML UDC PO PRN (17:15)
[2019-08-26] MEDS ORDERED: Cyclobenzaprine TAB* 10 MG PO PRN (17:15)
[2019-08-26] MEDS ORDERED: ceFAZolin 1 GM ADVAN(*) 1 GM in NS 0.9% 50 ML* 50 ML IVPB SCH (18:00)
[2019-08-26] MEDS: Ferrous Gluconate TAB* 324 MG TAB PO SCH (22:00)
[2019-08-26] MEDS: Docusate CAP* 100 MG PO SCH (22:00)
--- NOTE | 2019-08-26 22:00 | OP ---
Operative Report - Blank - Operative Report Date of Operation: 08/26/19 Note: LUIZ BEARD 1940 Date Of Surgery: 08/26/19 Sirena Sinha MD Ethnology Teacher: Christian BOLANOS did help throughout the procedure with preparation of the hip, wound retraction, manipulation of the hip, and wound closure. Anesthesiologist: Christian Live MD Anesthesia Type: General Preoperative Diagnosis: Left severe degenerative osteoarthritis of the hip Postoperative Diagnosis: As above Procedure Performed: Left Total Hip Arthroplasty Complications: None Specimen: Femoral head and acetabular reamings sent to pathology. Hardware used: This is uncemented Adelaida total hip arthroplasty hardware for the femur a size 8 accolade II 127 neck angle femoral component, for the acetabulum a size 56F trident II tritanium multihole shell, 2 screws length 15 mm each, for the insert a size 40 F trident X3 polyethylene insert, and for the femoral head a size 40+0 V40 femoral head. Brief history/Indication: LUIZ BEARD was known in clinic and had a history of severe left hip pain. He failed conservative treatment with anti- inflammatories, pain pills, intra-articular injections and physical therapy. He elected to undergo left total hip arthroplasty due to continued pain and decreased quality of life. Radiographs showed severe end stage osteoarthritis of the hip with bone on bone contact. Informed consent was obtained from the patient. He understood the risks of surgery included but were not limited to: bleeding, infection, damage to nearby structures, intraoperative fracture, nerve palsy, failure of the hardware, early loosening, stiffness or loss of motion, dislocation, leg length discrepancy, anesthesia complications, stroke, heart attack, blood clot and . He wished to proceed. Intra-Operative findings: Intraoperatively the patient was noted to have severe loss of cartilage of the acetabulum and femoral head. The patient had extensive loss of acetabular bone superiorly and posteriorly. He was noted to have osteopenia. Description of the Procedure: LUIZ BEARD was identified in the preanesthesia unit. His left hip was marked as the correct operative side. Informed consent was signed and placed in the chart. The patient was taken to the operating room and placed under anesthesia without complication. A chen catheter was placed. The patient was placed on the peg board with all bony prominences well padded. The left lower extremity was prepped and draped in the usual sterile fashion. Preoperative time -out was made to correctly identify the patient, side and site. Appropriate intraoperative antibiotics were given within one hour of incision. A standard posterior incision was made and carried sharply down to the lateral fascia. A new 10 blade was used to make an incision in the fascia in line with the skin incision. A charnley retractor was placed. The piriformis and conjoined tendons were identified and elevated off the posterolateral femur using electrocautery. These were tagged with number 5 Ethibond. Next electrocautery was used to make a posterolateral capsular flap and this was tagged with number 5 Ethibonds. The hip was carefully dislocated. Lesser trochanter to the center of the femoral head was measured at 65 mm. The oscillating saw was used to make the femoral neck cut. The femoral head was carefully removed. The femur was retracted anteriorly and the acetabular retractors were placed. Long-handled knife was used to sharply remove any remaining labrum from the acetabular rim. The acetabulum was sequentially reamed up to a size 56. A bleeding subchondral bone bed was obtained. A trial cup was placed and had excellent fit and stability. A 56F multihole cup with 2 screws was placed and had excellent stability with appropriate anteversion and abduction angle. A size 40F polyethylene liner was impacted into the acetabular shell. The liner was checked for stability and was stable. Next attention was turned to preparation of the femoral canal. A canal finder was used to enter the proximal femur. The femoral canal was sequentially broached up to a size 8 femoral broach trial. A trial neck and 40 +0 trial femoral head was chosen. Lesser trochanter to center of the femoral head measurement was satisfactory. The hip was reduced and taken through a range of motion. The hip was stable in all positions with good soft tissue tension and appropriate leg lengths. The hip was dislocated and all trials were removed. The final implant chosen was a accolade II size 8. This stem was impacted into the femoral canal without difficulty. The stem was stable with appropriate anteversion. The femoral head chosen was a 40 + 0 LFIT metal head. The head was impacted onto the femoral neck without difficulty. The final lesser trochanter to center of the femoral head measurement was satisfactory. The hip was reduced and taken through a range of motion. The hip was stable in all positions with good soft tissue tension and appropriate leg lengths. The hip was copiously irrigated with sterile saline. The previously tagged capsule and tendons were repaired to the posterolateral femur through two trochanteric drill holes. The lateral fascia layer was closed using number 1 vicryls. The rest of the incision was closed in a layered fashion using 0 and 2-0 vicryls. The skin was closed using 3-0 monocryl suture and Dermabond. Sterile adaptic, 4x4s and paper tape was used to cover the incision. The patients anesthesia was reversed without difficulty. He was taken to the PACU in stable condition. Intended weight-bearing will be as tolerated with posterior hip precautions.
[2019-08-26] MEDS: Magnesium Hydroxide LIQ* 30 ML UDC PO SCH (22:03)
[2019-08-26] MEDS: oxyCODONE/Acetamin 5/325 MG* TAB PO PRN (22:14)
[2019-08-26] MEDS: ceFAZolin 1 GM ADVAN(*) 1 GM in NS 0.9% 50 ML* 50 ML IVPB SCH (22:15)
[2019-08-26] MEDS: BRINZOLAMIDE RIGHT EYE SCH (23:27)
[2019-08-26] MEDS: BRIMONIDINE RIGHT EYE SCH (23:27)
[2019-08-27] MEDS: oxyCODONE/Acetamin 5/325 MG* TAB PO PRN ×2 (03:39→17:42)
[2019-08-27 05:13] LABS: Hematocrit 30 % (42-52); Hemoglobin 10.1 g/dL (14.0-18.0); Mean Platelet Volume 7.3 fL (7.4-10.4); Platelet Count 226 10^3/uL (150-450)
[2019-08-27 05:28] LABS: BUN/Creatinine Ratio 22.8 (8-20); Calcium 8.5 mg/dL (8.6-10.3); EGFR African American 113.9 (>60); EGFR Non-African American 94.1 (>60); Potassium 3.7 mmol/L (3.5-5.0)
[2019-08-27] MEDS: ceFAZolin 1 GM ADVAN(*) 1 GM in NS 0.9% 50 ML* 50 ML IVPB SCH ×2 (06:21→14:50)
[2019-08-27] MEDS: Lactated Ringers 1000 ML Bag* 1,000 ML IV SCH ×2 (06:46→15:07)
[2019-08-27] MEDS: Latanoprost 0.005%* 2.5 ml BTL BOTH EYES SCH ×2 (06:50→21:34)
--- NOTE | 2019-08-27 08:53 | PN ---
Progress Note - Progress Note Date of Service: 08/27/19 SOAP: Subjective: POD #1 Left FOZIA. Pt reports that he is doing well. Denies pain. Denies CP/SOB, f /c, n/v. Objective: Vital Signs: Temp Pulse Resp BP Pulse Ox 97.6 F 76 18 132/54 97 08/27/19 07:46 08/27/19 07:46 08/27/19 08:00 08/27/19 07:46 08/27/19 08:00 Gen: A&Ox3, NAD at rest sitting in chair Left hip: Dressing C/D/I. Thigh soft, NT. +f/e at knee, foot drop at baseline. Sensation intact, DP 2+ Labs: Laboratory Results - last 24 hr 08/27/19 08/27/19 04:39 04:39 Hgb 10.1 L Hct 30 L Plt Count 226 MPV 7.3 L Sodium 138 Potassium 3.7 Chloride 105 Carbon Dioxide 25 Anion Gap 8 BUN 18 Creatinine 0.79 Est GFR ( Amer) 113.9 Est GFR (Non-Af Amer) 94.1 BUN/Creatinine Ratio 22.8 H Glucose 100 Calcium 8.5 L Assessment: POD #1 Left FOZIA Plan: PT/OT with posterior hip precautions Will need BANDAR as copay for PMRU will be very high Eliquis for DVT ppx Continue current pain meds
[2019-08-27] MEDS: Ferrous Gluconate TAB* 324 MG TAB PO SCH ×2 (10:06→21:34)
[2019-08-27] MEDS: Docusate CAP* 100 MG PO SCH ×2 (10:06→21:34)
[2019-08-27] MEDS: Magnesium Hydroxide LIQ* 30 ML UDC PO SCH ×2 (10:06→21:34)
[2019-08-27] MEDS: Apixaban* 2.5 MG TAB PO SCH ×2 (10:06→21:34)
[2019-08-27] MEDS: Vitamin THERAPEUTIC TAB PO SCH (10:06)
[2019-08-27] MEDS: BRIMONIDINE RIGHT EYE SCH ×2 (10:07→21:39)
[2019-08-27] MEDS: BRINZOLAMIDE RIGHT EYE SCH ×2 (10:07→21:39)
[2019-08-28 05:47] LABS: Urine Appearance Cloudy; Urine Bilirubin Negative (Negative); Urine Blood Negative (Negative); Urine Color Yellow; Urine Glucose Negative (Negative); Urine Ketones Trace (Negative); Urine Nitrite Negative (Negative); Urine Protein Negative (Negative); Urine Specific Gravity 1.028 (1.010-1.030); Urine Urobilinogen Negative (Negative)
[2019-08-28 05:53] LABS: Hematocrit 27 % (42-52); Mean Platelet Volume 7.6 fL (7.4-10.4); Platelet Count 181 10^3/uL (150-450)
[2019-08-28] MEDS: Acetaminophen TAB* 325 MG PO PRN ×2 (08:13→17:55)
[2019-08-28] MEDS: BRIMONIDINE RIGHT EYE SCH ×2 (08:13→21:40)
[2019-08-28] MEDS: Docusate CAP* 100 MG PO SCH ×2 (08:13→21:40)
[2019-08-28] MEDS: BRINZOLAMIDE RIGHT EYE SCH ×2 (08:13→21:40)
[2019-08-28] MEDS: Vitamin THERAPEUTIC TAB PO SCH (08:13)
[2019-08-28] MEDS: Apixaban* 2.5 MG TAB PO SCH ×2 (08:14→21:40)
[2019-08-28] MEDS: Magnesium Hydroxide LIQ* 30 ML UDC PO SCH ×2 (08:14→21:40)
[2019-08-28] MEDS: Ferrous Gluconate TAB* 324 MG TAB PO SCH ×3 (08:14→22:07)
--- NOTE | 2019-08-28 08:17 | PN ---
Progress Note - Progress Note Date of Service: 08/28/19 SOAP: Subjective: OOB to chair, pain well controlled, denies SOB/chest pain Objective: Vital Signs Temp Pulse Resp BP Pulse Ox 97.4 F 87 17 138/64 96 08/28/19 07:54 08/28/19 07:54 08/28/19 07:54 08/28/19 07:54 08/28/19 07:54 Laboratory Last Values Hgb 9.0 g/dL (14.0-18.0) L 08/28/19 04:55 Hct 27 % (42-52) L 08/28/19 04:55 Plt Count 181 10^3/uL (150-450) 08/28/19 04:55 MPV 7.6 fL (7.4-10.4) 08/28/19 04:55 Sodium 138 mmol/L (135-145) 08/27/19 04:39 Potassium 3.7 mmol/L (3.5-5.0) 08/27/19 04:39 Chloride 105 mmol/L (101-111) 08/27/19 04:39 Carbon Dioxide 25 mmol/L (22-32) 08/27/19 04:39 Anion Gap 8 mmol/L (2-11) 08/27/19 04:39 BUN 18 mg/dL (6-24) 08/27/19 04:39 Creatinine 0.79 mg/dL (0.67-1.17) 08/27/19 04:39 Est GFR ( Amer) 113.9 (>60) 08/27/19 04:39 Est GFR (Non-Af Amer) 94.1 (>60) 08/27/19 04:39 BUN/Creatinine Ratio 22.8 (8-20) H 08/27/19 04:39 Glucose 100 mg/dL (70-100) 08/27/19 04:39 Calcium 8.5 mg/dL (8.6-10.3) L 08/27/19 04:39 Urine Color Yellow 08/28/19 05:32 Urine Appearance Cloudy 08/28/19 05:32 Urine pH 5.0 (5-9) 08/28/19 05:32 Ur Specific Andrews 1.028 (1.010-1.030) 08/28/19 05:32 Urine Protein Negative (Negative) 08/28/19 05:32 Urine Ketones Trace (Negative) A 08/28/19 05:32 Urine Blood Negative (Negative) 08/28/19 05:32 Urine Nitrate Negative (Negative) 08/28/19 05:32 Urine Bilirubin Negative (Negative) 08/28/19 05:32 Urine Urobilinogen Negative (Negative) 08/28/19 05:32 Ur Leukocyte Esterase Negative (Negative) 08/28/19 05:32 Urine Glucose Negative (Negative) 08/28/19 05:32 incision: c/d; dressing changed PE: known chronic left foot drop, 2+DP pulse Assessment: s/p left FOZIA; POD#2 Plan: 1) PT/OT- 50% WB LLE 2) continue DVT prophylaxis 3) awaiting rehab placement
--- NOTE | 2019-08-28 10:17 | DS ---
Orthopedic Discharge Summary - Discharge Summary Date of Admission:08/26/19 Date of Discharge: [08/28/19] Date of Surgery: [08/26/19] Attending Orthopedic Provider: [Dr. Sinha] Pre-operative Diagnosis: [Right hip osteoarthritis] Operative Procedure: [Right total hip arthroplasty] Disposition of Patient: [SNF] Condition of Patient: [Stable] History: LUIZ BEARD is a 79 year old M with years of increasingly severe right hip pain. Patient has failed conservative management and has elected to undergo a right total hip replacement. Hospital Course: LUZI was admitted to [facility] on 08/26/19. Patient underwent a right total hip replacement without complication followed by a brief recovery in PACU and transfer to the Short Stay Surgical Unit in stable condition. Our hospitalist service, physical therapy and occupational therapy also participated in this patients care. Post-op day 1: patient was alert and in no acute distress. Dressing was clean, dry and intact. Operative extremity dorsiflexion and plantarflexion intact, sensation intact to light touch distally, DP2+. Post-op day two: dressing was changed, incision was clean , dry and intact. Patient was deemed to be medically and orthopedically stable for discharge. Physical therapy goals were met. Home Medications Medication Instructions Recorded Confirmed Type Brinzolamid/Brimonidin OPH(NF) 1 ophth.soln RIGHT EYE BID 04/12/18 08/26/19 History [Simbrinza OPH.SUSP(NF)] Latanoprost 0.005%* [Xalatan 1 drop BOTH EYES BEDTIME 04/12/18 08/26/19 History 0.005%*] Cyanocobalamin TAB* [Vitamin B12 1,000 mcg PO EVERY OTHER DAY 05/17/18 08/26/19 History TAB*] Ferrous Gluconate TAB* [Fergon 325 mg PO BID 08/19/19 08/26/19 History TAB*] Acetaminophen TAB* [Tylenol TAB*] 650 mg PO Q8HR PRN tab 08/28/19 Rx Apixaban* [Eliquis*] 2.5 mg PO BID tab 08/28/19 Rx Docusate CAP* [Colace Cap*] 100 mg PO BID cap 08/28/19 Rx Latanoprost 0.005%* [Xalatan 1 drop BOTH EYES BEDTIME btl 08/28/19 Rx 0.005%*] Ondansetron ODT TAB* [Zofran 4 MG 4 mg PO Q6H PRN tab 08/28/19 Rx Odt TAB*] Vitamin THERAPEUTIC TAB* 1 tab PO DAILY tab 08/28/19 Rx [Theragran TAB*] oxyCODONE/Acetamin 5/325 MG* 1 tab PO Q4H PRN tab 08/28/19 Rx [Percocet 5/325 TAB*] oxyCODONE/Acetamin 5/325 MG* 2 tab PO Q4H PRN tab 08/28/19 Rx [Percocet 5/325 TAB*] Discharge Instructions following Orthopedic Surgery: Activity: * Weight Bearing as tolerated * Continue physical therapy and occupational therapy exercises as shown Hip replacements: Continue Hip Precautions- do not cross legs or bend greater than 90 degrees/squat Wound care: * OK to shower on post-op day 3, no bathing, swimming, or submerging wound. * Use gentle soap, pat dry. Cover with gauze, JENY wrap or tape. Call Orthopedic office for: * Increased drainage * Redness * Increased pain * Fever Diet: * Regular diet * Increase fluids and fiber to prevent constipation. * Continue to use stool softeners, call office if no bowel motion within 48 hours. Medications See Home Medication List in your packet for medications that you should take after discharge. DVT Prophylaxis: Eliquis Dosin.5 mg, 1 tab every 12 hours x 30 days Pain Control: Percocet Dosin/325 mg 1-2 tabs by mouth every 4-6 hours as needed for pain. Maximum of 10 tabs per day. Please note that Percocet contains Tylenol (acetaminophen). Maximum daily dose of Tylenol is 4000 mg from all sources. Antibiotics are required prior to any dental work. FOLLOW UP: Follow up with on 09/08/19 at 1:45pm. Please call our office with any questions or concerns ([phone])
[2019-08-28] MEDS ORDERED: Influenza VAC *QUAD* 2019-20* 0.5 ML SYRINGE IM ONE (10:30)
[2019-08-28] MEDS: Tamsulosin CAP* 0.4 MG PO SCH (13:14)
[2019-08-28] MEDS ORDERED: Bisacodyl SUPP* 10 MG SUPP PR PRN (17:15)
[2019-08-28 19:49] LABS: ABS Lymphocytes 0.7 10^3/ul (1.0-4.8); ABS Monocytes 0.6 10^3/ul (0-0.8); ABS Neutrophils 8.1 10^3/ul (1.5-7.7); Eosinophil % 0.2 %; Hematocrit 28 % (42-52); Hemoglobin 9.4 g/dL (14.0-18.0); Lymphocyte % 7.1 %; Mean Corpuscular HGB Conc 34 g/dL (31-36); Mean Corpuscular Hemoglobin 31 pg (27-31); Mean Corpuscular Volume 91 fL (80-94); Platelet Count 214 10^3/uL (150-450); Red Blood Count 3.03 10^6 /uL (4.18-5.48); Red Cell Distribution Width 14 % (10-15); White Blood Count 9.4 10^3/uL (3.5-10.8)
[2019-08-28] MEDS ORDERED: NS 0.9% 1000 ML** 1,000 ML IV ONE (19:56)
[2019-08-28 20:03] LABS: BUN/Creatinine Ratio 22.2 (8-20); Calcium 8.2 mg/dL (8.6-10.3); EGFR African American 110.7 (>60); EGFR Non-African American 91.5 (>60); Globulin 2.9 g/dL (2-4); Indirect Bilirubin 0.3 mg/dL (0.3-1.0); Magnesium 1.9 mg/dL (1.9-2.7); Phosphorus 1.3 mg/dL (2.5-5.0); Potassium 3.9 mmol/L (3.5-5.0); Total Bilirubin 0.4 mg/dL (0.2-1.0); Total Protein 5.9 g/dL (6.4-8.9)
[2019-08-28] MEDS ORDERED: Zosyn per Pharmacy* NOTE FOLLOW UP SCH (21:00)
[2019-08-28] MEDS ORDERED: Piperacillin/Tazobac ADVAN(*) 3.375 GM in NS 0.9% 100 ML* 100 ML IVPB ONE (21:30)
[2019-08-28] MEDS: Latanoprost 0.005%* 2.5 ml BTL BOTH EYES SCH (21:40)
[2019-08-28] MEDS ORDERED: Vancomycin(*) 1,250 MG in NS 0.9% 250 ML* 250 ML IVPB ONE (22:00)
--- NOTE | 2019-08-28 22:04 | CONS ---
HOSPITAL MEDICINE CONSULTATION REPORT: DATE OF CONSULT: 08/28/19 PROVIDER: Courtney Soler NP ATTENDING PHYSICIAN: Dr. Sinha.* CONSULTING PHYSICIAN: Dr. David Hoyos (dictated by Courtney Soler NP). REASON FOR CONSULT: Fever, postop. HISTORY OF PRESENT ILLNESS: Mr. Duque is an 79-year-old male with past medical history significant for anemia and osteoarthritis, who [place] [facility] [place] for an elective left total hip arthroplasty by Dr. Sinha. Please see dictated H and P from CICI Salinas, for complete details. In brief, the patient had ongoing pain and failed conservative measures; therefore, opted for left total hip arthroplasty with Dr. Sinha. In the immediate postoperative period, the patient had no complaints and was progressing well. Today, 08/28/19, the patient developed a fever of 102.6. He was tachycardiac, meeting SIRS criteria. Stat lab work was ordered, CBC, BMP, chest x-rays and UA , which were all pending at this time. Due to his development of fever, Hospital Medicine was asked to see and evaluate. PAST MEDICAL HISTORY: Significant for anemia and osteoarthritis. PAST SURGICAL HISTORY: Left bilateral total knee arthroplasties, left carpal tunnel, hernia repair. HOME MEDICATIONS: Include: 1. Xalatan eye drops 0.005 1 drop to both eyes at bedtime. 2. Ferrous gluconate 325 mg p.o. b.i.d. 3. Vitamin B12 1000 mcg p.o. every other day. 4. Simbrinza ophthalmic drop 1 drop to the right eye twice daily. 5. Multivitamin 1 tab p.o. daily. 6. Tamsulosin 0.4 mg p.o. daily. 7. Zofran 4 mg p.o. q.6 hours as needed. 8. Docusate 100 mg p.o. b.i.d. FAMILY HISTORY: He denies any history of coronary artery disease, diabetes or cancer within the family. SOCIAL HISTORY: The patient lives alone. He is a former cigar smoker. He reports he quit smoking approximately 20 years. Prior to that, smoked 2 cigars a day for approximately 10 years. Does report rare alcohol use. Denies any illicit drug use. Surrogate decision maker in the event he is unable to make his own decisions is his son, Satish. He is a full code. REVIEW OF SYSTEMS: The patient does report fever and chills. He denies any chest pain, shortness of breath. He denies any coughing up blood. He does report a mild non-productive cough. He denies any pain with urination, frequency, urgency. Denies any nausea, vomiting or abdominal pain. He does report mild pain to his left hip. PHYSICAL EXAM: General: At this time, Mr. Duque is an 79-year-old male. He is sitting in a chair in his hospital room. He is in no acute distress. Vital Signs: Temperature 102.6, heart rate is 100, respirations are 16, O2 saturation 100%, blood pressure 146/65. HEENT: Head is atraumatic, normocephalic. Eyes: EOMs are intact. Sclerae anicteric and not pale. Oral mucosa appeared to be moist. Neck is supple. Lungs are clear to auscultation bilaterally. No wheezes, rales, or rhonchi. Cardiac: S1, S2. Regular rate and rhythm. He is tachycardiac. No rubs, or gallops. Abdomen is soft and nontender. Bowel sounds are present x4. Extremities: He is able to move all 4 extremities. There is no clubbing or cyanosis. Pedal pulses are +2 bilaterally. Neurologic: He is awake, alert and oriented x3. Speech is clear. Thought process is intact. There is no gross focal deficits. Skin: He does have a dressing that is dry and intact. There is no surrounding erythema noted around the dressing to his left hip. DIAGNOSTIC STUDIES/LAB DATA: WBCs are 9.4, RBCs 3.03, hemoglobin is 9.4, hematocrit is 28, platelet count is 214. Sodium 138, potassium 3.7, chloride 105, carbon dioxide is 25, anion gap is 8, BUN 18, creatinine 0.79, calcium was 8.5. Urine is pending. Chest x-ray is pending. IMPRESSION AND PLAN: Mr. Duque is an 79-year-old male with a past medical history significant for anemia and osteoarthritis who presented for an elective left total hip arthroplasty with Dr. Sinha. In the intermediate postoperative period, the patient was doing well. This evening, the patient developed a fever of 102.6. Hospital Medicine was consulted due to fever and tachycardia. Our recommendations are as follows: 1. Status post left total hip arthroplasty. Management per Orthopedics. PT and OT per Orthopedics. Bowel regimen per Orthopedics. DVT prophylaxis per Orthopedics. 2. Fever. At this time, the patient does meet SIRS criteria with temperature of 102.6 and tachycardia rate of 100 with no source. The patient has had a CBC , BMP, UA with culture, chest x-rays, lactic acid and blood cultures drawn. The patient is tachycardiac. I will give him normal saline 1000 cc. His lactic acid is currently pending. We will cover him empirically with vancomycin and zosyn as the patient has been in the hospital for over 48 hours, to cover for hospital acquired underlying infection. The patient's CBC is back and he does not have an elevated white count. 3. FEN. He can have a regular diet. 4. Code status: He is a full code. 7. DVT prophylaxis: As per Orthopedics. TIME SPENT: Time spent on this consultation was approximately 45 minutes, greater than half that time was spent at the bedside reviewing events leading thus far to his hospitalization, performing physical exam, and reviewing my plan of care. I have discussed this with my attending, Dr. Dr. David Hoyos; he is in agreement with my plan. COURTNEY SOLER, MARI [id number]/[facility] #: [id number] YASIR
[2019-08-28 22:13] LABS: Urine Appearance Cloudy; Urine Bilirubin Negative (Negative); Urine Blood 2+ (Negative); Urine Color Yellow; Urine Glucose Negative (Negative); Urine Ketones Negative (Negative); Urine Nitrite Negative (Negative); Urine Protein 1+(30 mg/dL) (Negative); Urine Red Blood Cell 3+(>10/hpf) (Absent); Urine Specific Gravity 1.024 (1.010-1.030); Urine Urobilinogen Negative (Negative); Urine White Blood Cell Absent (Absent)
[2019-08-28 22:14] LABS: Urine Bacteria Absent (Absent)
[2019-08-28] MEDS ORDERED: NS 0.9% 1000 ML** 1,000 ML IV SCH (22:15)
[2019-08-28 22:42] LABS: Influenza A Molecular NEGATIVE (Negative); Influenza B Molecular NEGATIVE (Negative)
[2019-08-28] MEDS ORDERED: Vancomycin per Pharmacy* NOTE FOLLOW UP PRN (23:29)
[2019-08-29] MEDS ORDERED: ZOSYN 3.375 GM Q8H per EXTENDED INFUSION IVPB SCH ×2 (02:00)
[2019-08-29 05:33] LABS: Hematocrit 25 % (42-52); Hemoglobin 8.5 g/dL (14.0-18.0); Mean Platelet Volume 7.4 fL (7.4-10.4); Platelet Count 180 10^3/uL (150-450)
[2019-08-29] MEDS: Ferrous Gluconate TAB* 324 MG TAB PO SCH (09:00)
[2019-08-29] MEDS: Tamsulosin CAP* 0.4 MG PO SCH (09:00)
[2019-08-29] MEDS: Acetaminophen TAB* 325 MG PO PRN ×2 (09:00→14:34)
[2019-08-29] MEDS: BRINZOLAMIDE RIGHT EYE SCH (09:00)
[2019-08-29] MEDS: Vitamin THERAPEUTIC TAB PO SCH (09:00)
[2019-08-29] MEDS: Docusate CAP* 100 MG PO SCH (09:00)
[2019-08-29] MEDS: BRIMONIDINE RIGHT EYE SCH (09:00)
[2019-08-29] MEDS: Apixaban* 2.5 MG TAB PO SCH (09:00)
[2019-08-29] MEDS: Magnesium Hydroxide LIQ* 30 ML UDC PO SCH (09:04)
--- NOTE | 2019-08-29 09:27 | PN ---
Subjective Date of Service: 08/29/19 Interval History: Patient seen and examined at bedside. Mr. Duque is an 79 yo male, admitted for elective left total hip arthroplasty, with concern for postoperative fever on 08/28/19. CXR revealed concern for small right basilar infiltrate. Last fever was 102.6 last evening at 1700 with accompanying tachycardia. He has been afebrile since then. He denies feeling feverish or having chills, denies weakness, CP, SOB at rest or with exertion, aspiration, abd pain, n/v. He reports feeling better this morning. He demonstrates use of the incentive spirometer. Nursing and patient deny any type of aspiration event or choking (he also did not have general anesthesia). Currently denies any pain, reports good pain control. Family History: Unchanged from Admission Social History: Unchanged from Admission Past Medical History: Unchanged from Admission Objective Active Medications: Acetaminophen (Tylenol Tab*) 650 mg PO Q8HR PRN PRN Reason: MILD PAIN or TEMP > 100.4 Last Admin: 08/29/19 09:00 Dose: 650 mg Apixaban (Eliquis*) 2.5 mg PO BID [facility] Last Admin: 08/29/19 09:00 Dose: 2.5 mg Bisacodyl (Dulcolax Supp*) 10 mg WA DAILY PRN PRN Reason: CONSTIPATION Brinzolamide/Brimonidine Tartrate (Simbrinza Oph.Susp(Nf)) 1 drop RIGHT EYE BID [facility] Last Admin: 08/29/19 09:00 Dose: 1 dose Cyclobenzaprine HCl (Flexeril Tab*) 10 mg PO Q6H PRN PRN Reason: SPASMS Last Admin: 08/28/19 21:57 Dose: 10 mg Diphenhydramine HCl (Benadryl Iv*) 25 mg IV Q6H PRN PRN Reason: PRURITIS Diphenhydramine HCl (Benadryl Po*) 25 mg PO Q6H PRN PRN Reason: PRURITIS Docusate Sodium (Colace Cap*) 100 mg PO BID [facility] Last Admin: 08/29/19 09:00 Dose: 100 mg Ferrous Gluconate (Fergon Tab*) 324 mg PO BID [facility] Last Admin: 08/29/19 09:00 Dose: 324 mg Piperacillin Sod/Tazobactam (Sod 3.375 gm/ Sodium Chloride) 100 mls @ 25 mls/ hr IVPB Q8H [facility] Last Admin: 08/29/19 02:18 Dose: 25 mls/hr Sodium Chloride (Ns 0.9% 1000 Ml) 1,000 mls @ 100 mls/hr IV PER RATE [facility] Last Admin: 08/28/19 23:16 Dose: 100 mls/hr Vancomycin HCl 1,000 mg/ (Sodium Chloride) 250 mls @ 166.667 mls/hr IVPB Q12H [facility] Lactulose (Lactulose*) 30 ml PO BID PRN PRN Reason: CONSTIPATION Latanoprost (Xalatan 0.005%*) 1 drop BOTH EYES BEDTIME [facility] Last Admin: 08/28/19 21:40 Dose: 1 drop Magnesium Hydroxide (Milk Of Magnesia Liq*) 30 ml PO BID [facility] Last Admin: 08/29/19 09:04 Dose: Not Given Magnesium Hydroxide (Milk Of Magnesia Liq*) 30 ml PO Q6H PRN PRN Reason: CONSTIPATION Morphine Sulfate (Morphine Inj (Syringe))*) 2 mg IV Q4H PRN PRN Reason: Pain - Unrelieved Multivitamins (Theragran Tab*) 1 tab PO DAILY [facility] Last Admin: 08/29/19 09:00 Dose: 1 tab Ondansetron HCl (Zofran Inj*) 4 mg IV Q6H PRN PRN Reason: NAUSEA Ondansetron HCl (Zofran Odt Tab*) 4 mg PO Q6H PRN PRN Reason: NAUSEA Oxycodone/Acetaminophen (Percocet 5/325 Tab*) 1 tab PO Q4H PRN PRN Reason: PAIN - MODERATE Oxycodone/Acetaminophen (Percocet 5/325 Tab*) 2 tab PO Q4H PRN PRN Reason: PAIN - SEVERE Last Admin: 08/27/19 17:42 Dose: 2 tab Pharmacy Consult (Zosyn Per Pharmacy*) 1 note FOLLOW UP .ZOSYN PER PHARMACY [facility] Pharmacy Consult (Vancomycin Per Pharmacy*) 1 note FOLLOW UP . PRN PRN Reason: PER PROTOCOL Pharmacy Profile Note (Vancomycin Trough Check) 1 note FOLLOW UP 1030 ONE Stop: 08/30/19 10:31 Tamsulosin HCl (Flomax Cap*) 0.4 mg PO DAILY [facility] Last Admin: 08/29/19 09:00 Dose: 0.4 mg Vital Signs - 8 hr 08/29/19 08/29/19 08/29/19 03:25 08:00 08:33 Temperature 98.1 F 99 F Pulse Rate 63 88 Respiratory 18 18 18 Rate Blood Pressure 122/70 135/59 (mmHg) O2 Sat by Pulse 98 99 Oximetry Oxygen Devices in Use Now: None Appearance: Elderly male, OOB to chair, NAD Eyes: No Scleral Icterus, PERRLA Ears/Nose/Mouth/Throat: Clear Oropharnyx, Mucous Membranes Moist Neck: NL Appearance and Movements; NL JVP Respiratory: Symmetrical Chest Expansion and Respiratory Effort, Clear to Auscultation, - - RLL inspiratory crackles Cardiovascular: NL Sounds; No Murmurs; No JVD, RRR, No Edema Abdominal: NL Sounds; No Tenderness; No Distention Lymphatic: No Cervical Adenopathy Extremities: No Edema, No Clubbing, Cyanosis, - - left hip dressing intact, distal pulses 2+ and intact Skin: No Rash or Ulcers, - - large mobile mass to upper back resembling lipoma Neurological: Alert and Oriented x 3, NL Muscle Strength and Tone Lines/Tubes/Other Access: Clean, Dry and Intact Chen - clear yellow urine, Clean, Dry and Intact Peripheral IV Nutrition: Taking PO's Result Diagrams: 08/29/19 05:14 08/28/19 19:15 Assess/Plan/Problems-Billing Assessment: Mr. Duque is an 79 yo male with a PMH significant for anemia and osteoarthritis who was admitted on 08/26 for elective left total hip arthroplasty; had concern for fever on post op Day 2, likely secondary to post- operative pneumonia. - Patient Problems (1) Post-op pneumonia Code(s): J95.89 - OTH POSTPROC COMPLICATIONS AND DISORDERS OF RESP SYS, NEC; J18.9 - PNEUMONIA, UNSPECIFIED ORGANISM Comment: With Tmax 102.6 08/28 last evening Sepsis evaluation completed, BC sent - no results yet UA unremarkable, culture pending CXR shows small right basilar infiltrate that corresponds to assessment Has been receiving Zosyn and vancomycin - plan to start Augmentin this AM Ideally, will monitor patient through the afternoon and then discharge if he remains stable. CBC stable (2) Status post total replacement of right hip Code(s): Z96.641 - PRESENCE OF RIGHT ARTIFICIAL HIP JOINT Comment: POD #3, management per ortho PT/OT Pain management, bowel regimen (3) Anemia Code(s): D64.9 - ANEMIA, UNSPECIFIED Comment: Stable, suspect dilutional component from fluid resuscitation Asymptomatic, check stool occult (pt is on Eliquis) Continue ferrous sulfate, B12 supplementation (4) BPH (benign prostatic hyperplasia) Code(s): N40.0 - BENIGN PROSTATIC HYPERPLASIA WITHOUT LOWER URINRY TRACT SYMP Comment: With chen catheter, will follow up with urology as outpatient Continue tamsulosin (5) DVT prophylaxis Code(s): Z29.9 - ENCOUNTER FOR PROPHYLACTIC MEASURES, UNSPECIFIED Comment: Per ortho Continue apixaban Status and Disposition: Inpatient. Dispo per ortho. Ideally would like to keep patient for 24 hours but he is hopeful to go to rehab. Social work contacting [facility] to see what is the latest time we can get patient to facility today to avoid delaying rehab until Sunday. Would be okay to monitor patient through early afternoon and still discharge if afebrile and medically stable.
[2019-08-29 09:52] LABS: ABS Eosinophils 0.1 10^3/ul (0-0.6); ABS Monocytes 0.8 10^3/ul (0-0.8); ABS Neutrophils 6.5 10^3/ul (1.5-7.7); Eosinophil % 0.9 %; Lymphocyte % 12.1 %; Mean Corpuscular HGB Conc 34 g/dL (31-36); Mean Corpuscular Hemoglobin 31 pg (27-31); Mean Corpuscular Volume 91 fL (80-94); Red Cell Distribution Width 14 % (10-15); White Blood Count 8.3 10^3/uL (3.5-10.8)
[2019-08-29] MEDS ORDERED: Amoxicillin/Clavulanate TAB* 875 MG PO SCH (10:00)
[2019-08-29] MEDS ORDERED: Vancomycin(*) 1,000 MG in NS 0.9% 250 ML* 250 ML IVPB SCH (11:00)
[2019-08-29 15:49] VITALS: BP 117/57
[2019-08-30] MEDS ORDERED: Vancomycin Trough Check NOTE FOLLOW UP ONE (10:30)
== END 2019-08-29 16:30 | DRG 469 ==
LOC: AA 11:03 → SSU 20:40
PROVIDERS: ADMIT Orthopaedic Surgery Adult Reconstructive Orthopaedic Surgery; ATTEND Orthopaedic Surgery Adult Reconstructive Orthopaedic Surgery
PROC: 0SRB02A Replacement of Left Hip Joint with Metal on Polyethylene Synthetic Substitute, Uncemented, Open Approach (ICD-10-PCS; principal; 2019-08-26 14:15)
DX: M16.12 Unilateral primary osteoarthritis, left hip (principal); J18.9 Pneumonia, unspecified organism; Z96.653 Presence of artificial knee joint, bilateral; M81.0 Age-related osteoporosis without current pathological fracture; M48.00 Spinal stenosis, site unspecified; M85.88 Other specified disorders of bone density and structure, other site; N40.0 Benign prostatic hyperplasia without lower urinary tract symptoms; D64.9 Anemia, unspecified; Z72.89 Other problems related to lifestyle; Z87.891 Personal history of nicotine dependence; Z23 Encounter for immunization
CPT/HCPCS: 36415; 71045; 72170; 80048; 80076; 81003; 81015; 82270; 83605; 83735; 84100; 85014; 85018; 85025; 85049; 87040; 87086; 88304; 88311; 90686; 97530; A9270-GY; C1713; C1776; G8978-GP-CM; G8979-GP-CI; J0461; J0690; J2250; J2543; J2704; J2795; J3010; J3370; J3490

== ENCOUNTER 2020-04-26 21:42 | Inpatient (IN) ==
[2020-04-26 23:12] LABS: ABS Basophils 0.1 10^3/ul (0-0.2); ABS Lymphocytes 0.6 10^3/ul (1.0-4.8); ABS Monocytes 1.1 10^3/ul (0-0.8); Eosinophil % 0.1 %; Hematocrit 37 % (42-52); Hemoglobin 12.4 g/dL (14.0-18.0); Lymphocyte % 5.7 %; Mean Corpuscular HGB Conc 34 g/dL (31-36); Mean Corpuscular Hemoglobin 31 pg (27-31); Mean Corpuscular Volume 90 fL (80-94); Mean Platelet Volume 7.7 fL (7.4-10.4); Platelet Count 272 10^3/uL (150-450); Red Blood Count 4.06 10^6 /uL (4.18-5.48); Red Cell Distribution Width 15 % (10-15); White Blood Count 11.3 10^3/uL (3.5-10.8)
[2020-04-26 23:23] LABS: Activated Partial Thrombo Time 32.7 seconds (26.0-38.0); INR 1.22 (0.82-1.09)
[2020-04-26 23:45] LABS: BUN/Creatinine Ratio 22.4 (8-20); Blood Urea Nitrogen 24 mg/dL (6-24); CO2 Carbon Dioxide 25 mmol/L (22-32); Calcium 9.2 mg/dL (8.6-10.3); Chloride 108 mmol/L (101-111); Creatine Kinase 361 U/L (10-223); EGFR African American 80.3 (>60); EGFR Non-African American 66.3 (>60); Glucose 107 mg/dL (70-100); Sodium 142 mmol/L (135-145)
[2020-04-27 00:17] LABS: Anion Gap 9 mmol/L (2-11)
[2020-04-27] MEDS ORDERED: Ondansetron 4 mg VIAL 2 MG/ML 2 ml VIAL IV PRN (00:48)
[2020-04-27] MEDS ORDERED: NS 0.9% 1000 ml BAG 1,000 ML IV SCH ×2 (01:00→19:15)
[2020-04-27 01:37] LABS: EGFR African American 77.7 (>60); EGFR Non-African American 64.2 (>60)
[2020-04-27] MEDS: Morphine 2 MG/ML SYRINGE IV PRN ×2 (04:22→08:32)
[2020-04-27 05:54] LABS: Eosinophil % 0.7 %; Hematocrit 31 % (42-52); Hemoglobin 10.7 g/dL (14.0-18.0); Lymphocyte % 14.9 %; Mean Corpuscular HGB Conc 34 g/dL (31-36); Mean Corpuscular Hemoglobin 31 pg (27-31); Mean Corpuscular Volume 90 fL (80-94); Mean Platelet Volume 6.8 fL (7.4-10.4); Platelet Count 219 10^3/uL (150-450); Red Blood Count 3.48 10^6 /uL (4.18-5.48); Red Cell Distribution Width 14 % (10-15); White Blood Count 6.5 10^3/uL (3.5-10.8)
[2020-04-27 05:58] LABS: INR 1.3 (0.82-1.09)
[2020-04-27] MEDS ORDERED: Heparin 5000 UNITS/ML VIAL(*) 1 ml vial SUBCUT SCH (06:00)
[2020-04-27 06:11] LABS: Anion Gap 7 mmol/L (2-11); Blood Urea Nitrogen 24 mg/dL (6-24); CO2 Carbon Dioxide 24 mmol/L (22-32); Calcium 8.3 mg/dL (8.6-10.3); Chloride 110 mmol/L (101-111); Creatine Kinase 350 U/L (10-223); EGFR African American 99.3 (>60); Glucose 102 mg/dL (70-100); Potassium 3.5 mmol/L (3.5-5.0); Sodium 141 mmol/L (135-145)
[2020-04-27] MEDS ORDERED: Magnesium Hydroxide LIQ 30 ML UDC PO PRN (07:21)
[2020-04-27] MEDS ORDERED: Senna TAB 8.6 mg TAB PO PRN (07:21)
[2020-04-27 08:03] LABS: Magnesium 1.9 mg/dL (1.9-2.7)
[2020-04-27] MEDS: Multivitamins/Minerals TAB PO SCH (08:27)
[2020-04-27 08:37] LABS: % Iron Saturation 14 % (15-55); Iron 27 ug/dL (50-212); Total Iron Binding Capacity 200 mcg/dL (250-450); Transferrin 143 mg/dL (203-362)
[2020-04-27] MEDS: Brinzolamid/Brimonidin OPH(NF) 1 DROP BTL RIGHT EYE SCH ×2 (08:39→21:19)
[2020-04-27 08:58] LABS: Ferritin 633.9 ng/mL (24-336)
[2020-04-27] MEDS ORDERED: Iron Sucrose 200 MG in NS 0.9% 100 ml BAG 100 ML IVPB ONE (09:30)
[2020-04-27 09:47] LABS: Vitamin D Total 25(OH) 23.2 ng/mL (20-50)
[2020-04-27] MEDS ORDERED: Lactated Ringers 1000 ml BAG 1,000 ML IV SCH (11:00)
[2020-04-27 13:55] LABS: Hematocrit 30 % (42-52); Hemoglobin 10.5 g/dL (14.0-18.0); Mean Corpuscular HGB Conc 35 g/dL (31-36); Mean Corpuscular Hemoglobin 32 pg (27-31); Mean Corpuscular Volume 90 fL (80-94); Mean Platelet Volume 7.1 fL (7.4-10.4); Platelet Count 197 10^3/uL (150-450); Red Blood Count 3.33 10^6 /uL (4.18-5.48); Red Cell Distribution Width 14 % (10-15); White Blood Count 6.4 10^3/uL (3.5-10.8)
[2020-04-27 14:03] LABS: Activated Partial Thrombo Time 35.2 seconds (26.0-38.0); INR 1.3 (0.82-1.09)
[2020-04-27] MEDS ORDERED: ceFAZolin 2 GM PREMIX in ORs 2 GM/50 ML BAG ONE (15:23)
[2020-04-27] MEDS ORDERED: fentaNYL 100 mcg/2 ml 50 MCG/ML VIAL ONE (15:25)
[2020-04-27] MEDS ORDERED: Bupivacaine 0.5% SDV PF 30ML VIAL ONE (15:29)
[2020-04-27] MEDS ORDERED: Acetaminophen IV 1 GM/100ML 100 ML ONE (16:22)
[2020-04-27] MEDS ORDERED: Dexamethasone IV 4 MG/ML VIAL 1 ml VIAL ONE (16:22)
[2020-04-27] MEDS ORDERED: Ondansetron 4 mg VIAL 2 MG/ML 2 ml VIAL ONE (16:22)
[2020-04-27] MEDS ORDERED: Lidocaine 2% PF 5 ML VIAL ONE (16:22)
[2020-04-27] MEDS ORDERED: Enoxaparin 40 MG/0.4 ML SYR(*) SUBCUT SCH (21:00)
[2020-04-27] MEDS: Latanoprost 0.005% 2.5 ml BTL BOTH EYES SCH (21:20)
[2020-04-28] MEDS: ceFAZolin 1 GM* X 3 DOSES POST-OP Q8H (AddVan) IVPB SCH ×3 (00:53→17:10)
[2020-04-28 06:45] LABS: Hematocrit 28 % (42-52); Hemoglobin 9.7 g/dL (14.0-18.0); Mean Corpuscular HGB Conc 35 g/dL (31-36); Mean Corpuscular Hemoglobin 32 pg (27-31); Mean Corpuscular Volume 91 fL (80-94); Mean Platelet Volume 7.7 fL (7.4-10.4); Platelet Count 180 10^3/uL (150-450); Red Blood Count 3.06 10^6 /uL (4.18-5.48); Red Cell Distribution Width 14 % (10-15); White Blood Count 8.3 10^3/uL (3.5-10.8)
[2020-04-28 06:47] LABS: BUN/Creatinine Ratio 20.2 (8-20); Calcium 8.1 mg/dL (8.6-10.3); EGFR African American 106.1 (>60); EGFR Non-African American 87.7 (>60); Magnesium 1.8 mg/dL (1.9-2.7); Potassium 3.9 mmol/L (3.5-5.0)
[2020-04-28] MEDS ORDERED: Magnesium Sulfate 2 gm BAG 2 GM/50 ML BAG IVPB ONE (08:14)
[2020-04-28] MEDS ORDERED: Potassium Chlor 20 meq TAB.ER PO ONE (08:14)
[2020-04-28] MEDS: Multivitamins/Minerals TAB PO SCH (08:34)
[2020-04-28] MEDS: Brinzolamid/Brimonidin OPH(NF) 1 DROP BTL RIGHT EYE SCH ×2 (08:41→23:01)
[2020-04-28] MEDS ORDERED: Iron Sucrose 200 MG in NS 0.9% 100 ml BAG 100 ML IVPB ONE (12:15)
[2020-04-28] MEDS: Enoxaparin 40 MG/0.4 ML SYR(*) SUBCUT SCH (13:07)
[2020-04-28] MEDS: Latanoprost 0.005% 2.5 ml BTL BOTH EYES SCH (20:01)
[2020-04-29 06:37] LABS: Hematocrit 26 % (42-52); Mean Corpuscular HGB Conc 35 g/dL (31-36); Mean Corpuscular Hemoglobin 31 pg (27-31); Mean Corpuscular Volume 91 fL (80-94); Mean Platelet Volume 7.8 fL (7.4-10.4); Platelet Count 169 10^3/uL (150-450); Red Blood Count 2.85 10^6 /uL (4.18-5.48); Red Cell Distribution Width 14 % (10-15); White Blood Count 7.3 10^3/uL (3.5-10.8)
[2020-04-29 06:50] LABS: BUN/Creatinine Ratio 21.1 (8-20); Calcium 7.9 mg/dL (8.6-10.3); Magnesium 1.9 mg/dL (1.9-2.7); Potassium 3.8 mmol/L (3.5-5.0)
[2020-04-29] MEDS: Brinzolamid/Brimonidin OPH(NF) 1 DROP BTL RIGHT EYE SCH ×2 (09:30→20:46)
[2020-04-29] MEDS: Multivitamins/Minerals TAB PO SCH (09:41)
[2020-04-29] MEDS: Enoxaparin 40 MG/0.4 ML SYR(*) SUBCUT SCH (12:40)
[2020-04-29] MEDS: Latanoprost 0.005% 2.5 ml BTL BOTH EYES SCH (20:46)
[2020-04-30 05:48] LABS: BUN/Creatinine Ratio 17.4 (8-20); Calcium 7.9 mg/dL (8.6-10.3); EGFR African American 95.5 (>60); Magnesium 1.9 mg/dL (1.9-2.7)
[2020-04-30] MEDS: Multivitamins/Minerals TAB PO SCH (09:04)
[2020-04-30] MEDS: Brinzolamid/Brimonidin OPH(NF) 1 DROP BTL RIGHT EYE SCH (09:05)
[2020-04-30 11:06] VITALS: BP 125/58
== END 2020-04-30 12:30 | DRG 493 ==
LOC: ED 21:42 → SSU 04-27 01:02
PROVIDERS: ADMIT Nurse Practitioner Family; ATTEND Internal Medicine